=== PATIENT | male | born 1945 | race Caucasian/White ===

== ENCOUNTER 2024-10-11 16:55 | Inpatient (IN) | payer MEDICARE, BC, SELFPAY ==
[2024-10-11 17:59] VITALS: BP 111/65; PULSE 87; RESP 18; TEMP 37.7; O2SAT 95
[2024-10-11 18:42] VITALS: BMI 25.8
[2024-10-11 19:21] VITALS: BP 131/66; PULSE 94; RESP 22; TEMP 36.9; O2SAT 94
[2024-10-11 21:00] VITALS: BP 130/67; PULSE 80; RESP 18; O2SAT 96
[2024-10-11 21:16] VITALS: BP 130/67; PULSE 81; RESP 16; TEMP 36.7; O2SAT 5
--- NOTE | 2024-10-11 21:22 | EDNOTE_ITS ---
ED SOB =RME/HPI General Chief Complaint: Shortness of Breath/Dyspnea Stated Complaint: SPO2 84% @HOME, FEVER Time Seen by Provider: 10/11/24 17:49 Source: patient Arrival date/time: 10/11/24 16:55 Mode of arrival: ambulatory Limitations: no limitations RME / HPI RME / HPI Narrative: Dr. Arreola?s Main ED Evaluation: An 79-year-old male presented to the emergency department upon referral from his primary care provider (PCP) due to noted low oxygen saturation levels, which began earlier today. The patient reports a dry cough but denies any associated symptoms such as rhinorrhea, chest pain, or shortness of breath. He states that he does not use home oxygen and has no history of smoking. He experienced a fever at home but denies any recent exposure to sick contacts. Additionally, there have been no changes to his current medication regimen, and he remains compliant with his prescribed anticoagulant therapy, specifically Eliquis (related to stent placement). Related Data Home Medications ?Medication ?Instructions ?Recorded ?Confirmed lisinopril 40 mg tablet 40 mg PO BID #0 tabs 7 10/12/24 diltiazem HCl 30 mg tablet 30 mg PO TID 03/05/1910/12 (Cardizem) famotidine 40 mg tablet (Pepcid) 40 mg PO DAILY 10/12/24 levothyroxine 50 mcg tablet 50 mcg PO QDAY ##0 2 10/12/24 alendronate 70 mg tablet 70 mg PO QWEEK 08/08/2211/04 Held on 10/12/24. Instructions: Order Change aspirin 81 mg tablet,delayed 81 mg PO QDAY 08/08/22 release calcium 250 mg (phosphate)-vit D3 4 tab PO TIDWM 08/0810/12/24 12.5 mcg (500 unit) chewable tablet (Citracal-D3 Gummies) rosuvastatin 40 mg tablet 40 mg PO HS 08/08/22 5 ferrous sulfate 325 mg (65 mg 325 mg PO QDAY 08/10/22 10/12/24 iron) tablet (Iron (ferrous sulfate)) Held on 10/12/24. Instructions: Doctor's Order metoprolol succinate 50 mg 75 mg PO HS 08/10/22 tablet,extended release 24 hr rivaroxaban 20 mg tablet (Xarelto) mg 08/14/22 Held on 10/12/24. Instructions: Doctor's Order apixaban 5 mg tablet (Eliquis) 5 mg PO BID 10/12/24 hydrochlorothiazide 12.5 mg tablet 12.5 mg PO QDAY 11/0410/12/24 metformin 500 mg tablet 500 mg PO QDAY 10/12/2411/04 Previous Rx's ?Medication ?Instructions ?Recorded linagliptin 5 mg tablet (Tradjenta) 5 mg PO QDAY 30 da ys #30 tabs 08/12/22 Allergies Allergy/AdvReac Type Severity Reaction Status Date / Time ciprofloxacin Allergy Severe Hives Verified 10/11/24 16:58 oats Allergy Severe Vomiting Verified 10/11/24 16:58 Sulfa (Sulfonamide Allergy Severe Anaphylaxis Verified 10/11/24 16:58 Antibiotics) Review of Systems Review of Systems Systems Reviewed: All systems reviewed, normal except as documented ED Exam General Limitations: Present no limitations General appearance: Present alert and in no apparent distress Head Head exam: Present atraumatic Eye Eye exam: Present normal appearance, PERRL and EOMI ENT ENT exam: Present normal exam, normal oropharynx and mucous membranes moist Neck Neck exam: Present normal inspection, full ROM and trachea midline Chest Chest inspection: Present normal inspection and symmetric chest wall rise Respiratory Respiratory exam: Present normal lung sounds bilaterally Cardiovascular Cardiovascular exam: Present regular rate, normal rhythm and normal heart sounds Abdominal Exam Abdominal exam: Present soft and normal bowel sounds Extremities Exam Extremities exam: Present normal inspection and full ROM Back Exam Back exam: Present normal inspection and full ROM Neurological Exam Neurological exam: Present alert, oriented X3 and CN II-XII intact Psychiatric Psychiatric exam: Present normal affect and normal mood Skin Skin exam: Present warm, dry, intact and normal color Course Course Course Narrative: CXR is ordered for determining etiology of shortness of breath. Quality Measures none Orders Category Date Time Status Bedside COVID-19 Antigen Test NOW Care 10/11/24 19:31 Active COVID-19 Screening Questionnaire NOW Care 10/11/24 22:47 Completed Decision to Admit X1 Care 10/11/24 22:47 Completed CXRP [XR chest 1V portable] Stat Exams 10/11/24 21:25 Completed BNP [B-Type Natriuretic Peptide] Stat Lab 10/11/24 21:03 Completed CBC Stat Lab 10/11/24 21:03 Completed CMP [Comprehensive Metabolic Panel] Stat Lab 10/11/24 21:03 Completed Troponin I Stat Lab 10/11/24 21:03 Completed Apixaban [Eliquis] Med 10/11/24 21:24 Discontinued 5 mg PO X1 ONE Vital Signs Vital signs: Vital Signs Temperature 99.8 F 10/11/24 17:59 Pulse Rate 87 10/11/24 17:59 Respiratory Rate 18 10/11/24 17:59 Blood Pressure 111/65 10/11/24 17:59 Pulse Oximetry (%) 95 10/11/24 17:59 Oxygen Delivery Method Oxy Mask 10/11/24 17:59 Oxygen Flow Rate 10 10/11/24 17:59 Shortness of Breath / Dyspnea MDM Narrative MDM Narrative:: This is a very pleasant 79-year-old male with above history return to the emergency department for fever x 1 day and cough. In the emergency department the chest x-ray shows that he has bilateral pneumonia. The patient is slightly hypoxic however he is compliant with his Eliquis and is due for his dose tonight which was given. The patient is slightly hypoxic but improved to 90% on 4 L after DuoNeb. Patient otherwise is awake and talking in full sentences. He is treated with antibiotics and admitted to the hospitalist for continued monitoring. Scribe Attestation: IBlas, am scribing for and in the presence of Dr. Arreola. Provider Notation: Although this document has been carefully reviewed, there may still be some phonetic and other typographical errors. These errors are purely grammatical due to imperfections in the software program and should not be construed in any way to compromise the substance of the patient's medical care during this visit. Patient data External records reviewed:: [facility] previous records Clinical information provided by:: patient Social determinants that could affect healthcare access:: none Patient has the following chronic illnesses:: see PMH How is presenting disease/condition affected by chronic disease/condition?: uneffected by Evaluation data The following diagnostics were reviewed and interpreted by me:: lab results and radiology exam(s) Lab and/or radiology exams considered but not ordered:: none Interpretation Summary: I personally reviewed the radiology data and agree with the radiologist's interpretation. [facility] Report Signed Patient: SUZETTE ANNA. Record#: [id number] Birthdate: 1945 Age/Sex: 79 / M Location: [facility] Attending Dr: Ordering Physician: Luz Arreola MD Date of Service: 10/11/24 Procedure(s): XR chest 1V portable Accession Number(s): [id number] cc: Cristobal Chowdhury MD; Robbin Vazquez MD; Luz Arreola MD~ Examination: AP chest single view Technique: AP portable upright chest single view Exam date and time: October 11, 2024 2147 hrs. Comparison August 10, 2022 Indications: Coughing fever today. Findings: Diffuse bilateral pneumonia Moderate enlargement cardiac contour with vascular congestion Prominent osteopenia Impression: Diffuse bilateral pneumonia Dictated By: Robbin Vazquez MD Signed By: <Electronically signed by Robbin Vazquez MD in OV> 10/11/24 2223 Medications / Prescriptions Medications or Prescriptions considered but not ordered:: none Medication administrations:: Medication Administration History Acetaminophen (Acetaminophen 325 Mg Tablet) 650 mg PO Q6H PRN PRN Reason: PAIN SCALE 1-3 (mild Stop: 11/10/24 23:23 Acetaminophen (Acetaminophen 325 Mg Tablet) 650 mg PO Q6H PRN PRN Reason: Fever >100 Stop: 11/10/24 23:23 Albuterol/Ipratropium (Albuterol/Ipratropium (Duoneb) Rt Yesenia 3 Ml Nebu) 3 ml INH Q6HRRT TERESA Stop: 11/11/24 00:59 Last Admin: 10/12/24 06:13 Dose: 3 ml Documented By: [facility] Admin: 10/12/24 01:20 Dose: 3 ml Documented By: Apixaban (Apixaban 2.5 Mg Tablet) 5 mg PO BID TERESA Stop: 11/10/24 23:44 Last Admin: 10/12/24 01:13 Dose: Not Given Documented By: Non-Admin Reason: given at 2144 in ED Aspirin (Aspirin Ec 81 Mg Tabec) 81 mg PO QDAY [facility] Stop: 11/11/24 08:59 Atorvastatin Calcium (Atorvastatin Calcium 20 Mg Tablet) 40 mg PO HS [facility] Stop: 11/11/24 20:59 Dextrose (Dextrose 50%-Water Inj 50 Ml Syringe) 25 ml IV Q15MIN PRN PRN Reason: BG 50-70 responsive npo pt Stop: 11/10/24 23:35 Dextrose (Dextrose 50%-Water Inj 50 Ml Syringe) 50 ml IV Q15MIN PRN PRN Reason: BG <50 OR BG <70 & pt unresponsive Stop: 11/10/24 23:35 Diltiazem HCl (Diltiazem 30 Mg Tablet) 30 mg PO TID [facility] Stop: 11/10/24 23:44 Last Admin: 10/12/24 05:29 Dose: 30 mg Documented By: Admin: 10/12/24 01:27 Dose: 30 mg Documented By: CG Famotidine (Famotidine 20 Mg Tablet) 20 mg PO QDAY [facility] Stop: 11/11/24 08:59 Glucagon (Glucagon Inj 1 Mg Vial) 1 mg IM Q15MIN PRN PRN Reason: BG <70, and no IV access Ceftriaxone Sodium/Dextrose (Rocephin/D5w 1gm Iv Premix) 50 mls @ 100 mls/hr IV [facility] Stop: 10/19/24 20:59 Azithromycin 500 mg/ Sodium (Chloride) 250 mls @ 250 mls/hr IV [facility] Stop: 10/19/24 20:59 Insulin Human Lispro (Insulin Lispro (Admelog) 1 Unit/0.01 Ml Unit) 0 unit SC [facility]; Protocol Stop: 11/11/24 07:29 Levothyroxine Sodium (Levothyroxine Sodium 25 Mcg Tablet) 50 mcg PO ACBR [facility] Stop: 11/11/24 05:59 Last Admin: 10/12/24 05:29 Dose: 50 mcg Documented By: CG Metoprolol Succinate (Metoprolol Succinate Xl 25 Mg Tabcr) 50 mg PO QDAY [facility] Stop: 11/11/24 08:59 Ondansetron HCl (Ondansetron Inj 2 Mg/Ml Inj 2 Ml) 4 mg IV Q6H PRN; Protocol PRN Reason: NAUSEA OR VOMITING Stop: 11/10/24 23:23 Discontinued Medications Apixaban (Apixaban 2.5 Mg Tablet) 5 mg PO X1 ONE Stop: 10/11/24 21:25 Last Admin: 10/11/24 21:44 Dose: 5 mg Documented By: DMITRY Furosemide (Furosemide Inj 10 Mg/Ml Vial 2 Ml) 20 mg IVP X1 ONE Stop: 10/11/24 23:25 Azithromycin 500 mg/ Sodium (Chloride) 250 mls @ 250 mls/hr IV X1 ONE Stop: 10/12/24 01:29 Last Infusion: 10/12/24 02:55 Dose: Infused Documented By: Admin: 10/12/24 01:55 Dose: 250 mls/hr Documented By: CG Ceftriaxone Sodium/Dextrose (Rocephin/D5w 1gm Iv Premix) 50 mls @ 100 mls/hr IV X1 ONE Stop: 10/12/24 00:59 Last Infusion: 10/12/24 01:56 Dose: Infused Documented By: Admin: 10/12/24 01:26 Dose: 100 mls/hr Documented By: CG Pantoprazole Sodium (Pantoprazole Inj 40 Mg Vial) 40 mg IVP QDAY [facility] Stop: 11/11/24 08:59 Sodium Chloride (Sodium Chloride Rt 10% 15 Ml Nebu) 5 ml INH X1 ONE Stop: 10/11/24 23:25 as above, if any Consultations Consultation(s) initiated? (list below): Yes Consultation #1 (Physician, Specialty, Details): Discussed case with [the resident physician, Dr. Tyler] from Hospitalist service regarding admission. Discussed patients ED course, exam findings, labs, and radiology results. The Hospitalist [agrees] to accept the patient for admission. Time: 22:46 Diagnosis Shortness of Breath Differential Diagnosis: acute exacerbation of chronic obstructive airways disease, congestive heart failure and asthma with exacerbation Most likely diagnosis given after review of the tests above:: see clinical impression Admission Indicated Admission indicated?: indicated Admission Request Was there a request for admission?: Yes Admission Attestation Admission request attestation: Discussed case with [] from Hospitalist service regarding admission. Discussed patients ED course, exam findings, labs, and radiology results. The Hospitalist [agrees,declines] to accept the patient for admission. Disposition Plan Disposition Plan: Admit Critical Care Time Critical Care Time Critical Care Time: Yes Total Critical Care Time (min.): 35 Attestation: The high probability of sudden, clinically significant deterioration in the patient?s condition required the highest level of my preparedness to intervene urgently. The services I provided to this patient were to treat and/or prevent clinically significant deterioration. Services included the following: chart data review, reviewing nursing notes and/or old charts, documentation time, beauty consultant collaboration regarding findings and treatment options, medication orders and management, direct patient care, vital sign assessments and ordering, interpreting and reviewing diagnostic studies and lab tests. Aggregate critical care time includes only time during which I was engaged in work directly related to the patient?s care, as described above, whether at bedside or elsewhere in the Emergency Department. It did not include time spent performing other reported procedures or the services of residents, students, nurses or physician assistants. Discharge Plan Plan Patient Disposition: Admit Acute Care w/in Hospital Patient condition on transfer: Stable Problem List Clinical Impression: Bilateral pneumonia, Hypoxia
--- NOTE | 2024-10-11 21:25 | XR_ITS ---
Examination: AP chest single view Technique: AP portable upright chest single view Exam date and time: October 11, 2024 2147 hrs. Comparison August 10, 2022 Indications: Coughing fever today. Findings: Diffuse bilateral pneumonia Moderate enlargement cardiac contour with vascular congestion Prominent osteopenia Impression: Diffuse bilateral pneumonia
[2024-10-11 21:30] LABS: Basophils % (Auto) 0 % (0-2.5); Eosinophils % (Auto) 0 % (0-10); Hematocrit 35.8 % (41.0-53.0); Hemoglobin 11.8 g/dL (13.5-16.0); Immature Granulocytes % (Auto) 1 % (0-0); Immature Granulocytes Auto 0.07 Thou/mm3 (0.00-0.00); Lymphocytes % (Auto) 7 % (10-50); Mean Corpuscular Hemoglobin 29.9 pg (25.0-35.0); Mean Corpuscular Volume 91 fL (80-100); Monocytes # (Auto) 1.3 Thou/mm3 (0.0-0.8); Monocytes % (Auto) 9 % (0-12); Neutrophils # (Auto) 11.6 Thou/mm3 (1.8-7.7); Neutrophils % (Auto) 83 % (37-80); Nucleated Red Blood Cell % 0 /100 WBC (0); Platelet Count 147 Thou/mm3 (140-440); RDW Standard Deviation 44.8 fL (35.1-43.9); Red Blood Count 3.95 Miln/mm3 (4.50-5.90)
[2024-10-11] MEDS: APIXABAN 2.5 MG TABLET 5 MG PO (21:44)
[2024-10-11 22:00] VITALS: BP 140/78; PULSE 80; RESP 24; O2SAT 97
[2024-10-11 22:12] LABS: Alanine Aminotransferase 14 U/L (10-49); Albumin, Serum 4.1 gm/dL (3.4-4.8); Albumin/Globulin Ratio 1.6 (1.2-2.2); Alkaline Phosphatase 46 U/L (46-116); Anion Gap 10 (7-16); Aspartate Amino Transferase 25 U/L (0-34); BUN/Creatinine Ratio 24 Ratio (12-20); Blood Urea Nitrogen 33 mg/dL (9-23); Calcium 9.9 mg/dL (8.3-10.6); Calcium (Corrected) 9.9 mg/dL (8.5-10.1); Carbon Dioxide 25.1 mMol/L (20.0-31.0); Chloride 111 mMol/L (98-107); Creatinine (Component) 1.4 mg/dL (0.6-1.3); Estimated Creatinine Clearance 42.7 mL/min (>60); Globulin 2.5 gm/dL (2.3-3.5); Glucose 167 mg/dL (74-106); Osmolality,Calculated 301 (275-295); Potassium 4.9 mMol/L (3.4-5.1); Sodium 146 mMol/L (136-145); Total Protein 6.6 gm/dL (5.7-8.2); Troponin I < 0.020 ng/mL (0.0-0.045); eGFR 50 See Note
[2024-10-11 22:52] LABS: B-Type Natriuretic Peptide 206 pg/mL (0-100)
--- NOTE | 2024-10-11 23:24 | ECHO_ITS ---
Transthoracic Echo Report Ht (in): 70 Wt (lb): 180 Exam Location: Echo Lab Status: Emergency Vault Mechanic: Ester Adams Indications: Procedure Performed: BP: / HR: Technical Quality: Technically difficult study MEASUREMENTS (Male / Female) Normal Values DOPPLER AV Peak Velocity 198.0 cm/s AV Peak Gradient 15.7 mmHg AV Mean Gradient 7.0 mmHg AV Velocity Time Integral 30.0 cm LVOT Peak Velocity 129.0 cm/s LVOT Peak Gradient 6.7 mmHg LVOT Velocity Time Integral 20.8 cm MV Area PHT 3.5 cm? Mitral E Point Velocity 66.5 cm/s Mitral A Point Velocity 87.8 cm/s Mitral E to A Ratio 0.8 LV E' Lateral Velocity 6.3 cm/s Mitral E to LV E' Lateral Ratio 10.5 LV E' Septal Velocity 7.1 cm/s Mitral E to LV E' Septal Ratio 9.4 TR Peak Velocity 284.0 cm/s TR Peak Gradient 32.3 mmHg PV Peak Velocity 109.0 cm/s PV Peak Gradient 4.8 mmHg FINDINGS Left Ventricle Normal left ventricular size. The ejection fraction is visually estimated at 40 %. Global left ventricular systolic function is mildly decreased. Hypokinetic mid- anterior septal wall motion. Right Ventricle The right ventricle is normal in size and systolic function. Left Atrium Left atrium not well visualized. Right Atrium Right atrium is not well visualized. Atrial Septum The interatrial septum appears normal with no evidence of a shunt. Aorta The aorta is normal by two-dimensional, color flow and Doppler interrogation. Mitral Valve The mitral valve is normal by two-dimensional, color flow and Doppler interrogation. There is no significant mitral valve regurgitation, stenosis or prolapse. Aortic Valve The aortic valve is trileaflet and normal by two-dimensional, color flow and Doppler interrogation. There is no significant aortic valve regurgitation. Tricuspid Valve The tricuspid valve is normal by two-dimensional, color flow and Doppler interrogation. There is mild tricuspid valve regurgitation. Pulmonic Valve The pulmonic valve is not well visualized. There is no significant pulmonic valve regurgitation. Vessels Inferior vena cava not well visualized. Pericardium The pericardium is normal by two-dimensional imaging. There is no significant pericardial effusion. CONCLUSIONS Indication: SOB All the cardiac structures suboptimally visalized. Normal LV size. Global LV systolic function is mildly decreased. LVEF 40% Hypokinetic mid-anterior septal wall motion. The right ventricle is normal in size and systolic function. Mild TR. Kendal Meza (Electronically Signed) Final Date: 15 October 2024 00:55
--- NOTE | 2024-10-11 23:36 | PD.RESHP ---
Documentation for date of: 10/11/24 [facility] History of Present Illness History of present illness: This is a 79-year-old male PMHx of AAA 10 years ago s/p stenting, CAD with stents, HTN, HLD, hypothyroidism, T2DM and GERD presenting to the ED with shortness of breath and cough. Reports 3 days productive cough with grayish sputum associated with shortness of breath and 1 episode low-grade fever of 100.2 overnight. Fever resolved after IBUPROFEN x 1. This morning, he had worsening cough after smoking marijuana. He was seen by PCP this morning who recommended admission to the hospital. Denies headaches, chills, chest pain, palpitations, hemoptysis, abdominal pain, N/V/D/C, urinary urgency, frequency, dysuria, sick exposure, or recent travel history. ED COURSE: Normal appearing elderly male, on 5 L NC, NAD. Bibasilar crackles on lung exam. Bilateral 1+ lower extremity edema. Afebrile, BP 145/78, HR 87, RR 22, satting 95% on 10L NC. WBC 14.0, Hgb 11.8 around baseline. Sodium 146, CR 1.4, GFR 50 (baseline > 60), GLUCOSE 167. BNP 206, troponin negative. CXR bilateral pneumonia. PMHx: Afib, AAA, CAD, HTN, HLD, hypothyroidism, T2DM, GERD PSHx: Aortic aneurysm repair >10 years ago, prostatectomy 2 years ago MEDS: ASPIRIN, D3, DILTIAZEM, ELIQUIS, FLECAINIDE 100 PRN, HYDROCHLOROTHIAZIDE, LEVOTHYROXINE, LISINOPRIL, METOPROLOL, FAMOTIDINE, ROSUVASTATIN, TRADJENTA ALLERGIES: CIPROFLOXACIN (hives), SULFA DRUGS (anaphylaxis), oats (vomiting) SH: Distant history of 19-oiva-fqcn tobacco smoking, current marijuana user, no alcohol use. Exam Vital Signs Temp Pulse Resp BP Pulse Ox O2 Del Method O2 Flow Rate 98.0 F 80 24 H 140/78 H 97 Oxy Mask 5 10/11/24 21:16 10/11/24 22:00 10/11/24 22:00 10/11/24 22:00 10/11/24 22:00 10/11/24 22:00 10/11/24 22:00 Narrative Exam GENERAL Normal-appearing elderly male, no apparent distress, on 2 L NC HEENT NCAT.?YG. Oral mucosa is moist. Patent Nares NECK Supple, nontender, no thyromegaly, no meningismus, no JVD, no step offs CHEST RRR, no m/g/r Bibasilar crackles, no wheezing, no rhonchi. Symmetrical chest rise Atraumatic, nontender, no crepitus, symmetrical expansion. ABDOMEN Soft, flat, nontender. No guarding/rebound tenderness/masses. Bowel sounds presents EXTREMITIES Nontender, no cyanosis, no edema 1+ bilateral lower extremity pitting edema SKIN Warm and dry, no jaundice/rashes. Diffuse senile purpura NEUROMUSCULAR No lumbar or midline, no CVA, no paraspinal muscle spasm or tenderness. Moves all 4 extremities well, with full ROM and good CSM. ROBERTS x4, CN II-XII grossly intact. No focal neurologic deficits. PSYCHIATRY Normal mood and affect, cooperative, no SI or HI or hallucinations. Results: Labs 10/11/24 21:03 10/11/24 21:03 Labs: Short CBC 10/11/24 Range/Units 21:03 WBC 14.0 H (3.8-10.6) Thou/mm3 Hgb 11.8 L (13.5-16.0) g/dL Hct 35.8 L (41.0-53.0) % Plt Count 147 (140-440) Thou/mm3 BMP 10/11/24 21:03 Sodium 146 H Potassium 4.9 Chloride 111 H Carbon Dioxide 25.1 BUN 33 H Creatinine 1.4 H Glucose 167 H Calcium 9.9 Cardiac Enzymes 10/11/24 Range/Units 21:03 Troponin I < 0.020 (0.0-0.045) ng/mL Liver Function 10/11/24 Range/Units 21:03 Total Bilirubin 1.0 (0.3-1.2) mg/dL AST 25 (0-34) U/L ALT 14 (10-49) U/L Alkaline Phosphatase 46 (46-116) U/L Albumin 4.1 (3.4-4.8) gm/dL Quality Measures Quality Measures none Advance care planning discussed with:: patient Medications Home Medications and Allergies Home Medications ?Medication ?Instructions ?Recorded ?Confirmed ?Type lisinopril 40 mg tablet 40 mg PO BID #0 tabs 12/19/16 08/10/22 History diltiazem HCl 30 mg tablet 30 mg PO TID 03/05/19 08/10/22 History (Cardizem) famotidine 40 mg tablet (Pepcid) 40 mg PO DAILY 06/30/22 08/10/22 History levothyroxine 50 mcg tablet 50 mcg PO QDAY ##0 06/30/22 08/10/22 History alendronate 70 mg tablet 70 mg PO QWEEK 08/08/22 08/10/22 History aspirin 81 mg tablet,delayed 81 mg PO QDAY 08/08/22 08/10/22 History release calcium 250 mg (phosphate)-vit D3 4 tab PO TIDWM 08/08/22 08/10/22 History 12.5 mcg (500 unit) chewable tablet (Citracal-D3 Gummies) rosuvastatin 40 mg tablet 40 mg PO HS 08/08/22 08/10/22 History ferrous sulfate 325 mg (65 mg 325 mg PO QDAY 08/10/22 08/10/22 History iron) tablet (Iron (ferrous sulfate)) metoprolol succinate 50 mg 75 mg PO HS 08/10/22 08/10/22 History tablet,extended release 24 hr rivaroxaban 20 mg tablet (Xarelto) mg 08/14/22 History Allergies Allergy/AdvReac Type Severity Reaction Status Date / Time ciprofloxacin Allergy Severe Hives Verified 10/11/24 16:58 oats Allergy Severe Vomiting Verified 10/11/24 16:58 Sulfa (Sulfonamide Allergy Severe Anaphylaxis Verified 10/11/24 16:58 Antibiotics) Visit Medications Acetaminophen (Acetaminophen 325 Mg Tablet) 650 mg PO Q6H PRN PRN Reason: PAIN SCALE 1-3 (mild Stop: 11/10/24 23:23 Acetaminophen (Acetaminophen 325 Mg Tablet) 650 mg PO Q6H PRN PRN Reason: Fever >100 Stop: 11/10/24 23:23 Ceftriaxone Sodium/Dextrose (Rocephin/D5w 1gm Iv Premix) 50 mls @ 100 mls/hr IV QDAY TERESA Stop: 10/19/24 08:59 Azithromycin 500 mg/ Sodium (Chloride) 250 mls @ 250 mls/hr IV QDAY TERESA Stop: 10/18/24 23:26 Ondansetron HCl (Ondansetron Inj 2 Mg/Ml Inj 2 Ml) 4 mg IV Q6H PRN; Protocol PRN Reason: NAUSEA OR VOMITING Stop: 11/10/24 23:23 Pantoprazole Sodium (Pantoprazole Inj 40 Mg Vial) 40 mg IVP QDAY TERESA Stop: 11/11/24 08:59 Discontinued Medications Apixaban (Apixaban 2.5 Mg Tablet) 5 mg PO X1 ONE Stop: 10/11/24 21:25 Last Admin: 10/11/24 21:44 Dose: 5 mg Furosemide (Furosemide Inj 10 Mg/Ml Vial 2 Ml) 20 mg IVP X1 ONE Stop: 10/11/24 23:25 Sodium Chloride (Sodium Chloride Rt 10% 15 Ml Nebu) 5 ml INH X1 ONE Stop: 10/11/24 23:25 Assessment & Plan Plan In summary: 79-year-old male PMHx of AAA 10 years ago s/p stenting, CAD with stents, A-fib, HTN, HLD, hypothyroidism, T2DM and GERD, presenting with fever, cough, SOB. Admitted for sepsis 2/2 pneumonia. Acute hypoxemic respiratory failure Sepsis Community-acquired pneumonia ? CHF exacerbation Presenting with scott sputum cough, fever, and SOB x 3 days. Met sepsis with 2/3 SIRS criteria: tachypnea and leukocytosis, pneumonia likely source, endorgan damage (HOWARD). CXR showed bibasilar pneumonia. Basilar lung crackles and 1+ bilateral lower extremity edema on exam. BNP 206. Satting 95% on 5 L NC. Will hold off on fluid till after echo given fluid overload. PSI index 81 indicates class III risk. CURB-65 of 2 indicates Moderate risk. ? Med/tele ? Continue CEFTRIAXONE daily (10/11 to present) ? Continue AZITHROMYCIN daily (10/11 to present) ? Continue DuoNebs q.6h. PRN ? Holding home METOPROLOL in likely settings of acute CHF exacerbation ? Chest physio therapy ? Pending echocardiogram ? Pending cultures: Blood and sputum Prerenal HOWARD Likely in settings of dehydration. CR 1.4 with baseline around 1.2. Anticipate improvement with resuscitation. ? Renally dose meds, avoid overdiuresis and NEPHROTOXINS ? Daily CMP ? Consider starting fluids when appropriate A-fib, rate controlled Hx of AAA s/p stent Hx of CAD s/p stent Patient follows up with cardiology for annual screening in [place]. Last visit last week. Denies chest pain or palpitations. Troponin normal. [id number] 5 point outweighs risk of bleed with HAS-BLED of 3. ? Continued home ASPIRIN 81 mg daily ? Continued home ELIQUIS 5 mg BID ? Continue home DILTIAZEM 30 mg TID ? Pending EKG Patient takes home FLECAINIDE 100 mg as needed. Consider restarting medication as indicated. HTN, HLD, hypothyroidism Home meds HCTZ 12.5 daily, LISINOPRIL 40 BID, METOPROLOL 50 mg daily, ROSUVASTATIN 40 mg. BP 145/78. ? Continue ATORVASTATIN 40 mg HS ? Holding HCTZ, LISINOPRIL in settings of HOWARD ? Holding METOPROLOL as above ? Consider repeat lipid panel, thyroid function T2DM No recent A1c on file. Admission GLUCOSE 167 ? Accu-Cheks ? INSULIN sliding scale ? Pending A1c Mild hypernatremia Sodium 146. Likely dehydration. ? Encourage oral fluids ? Daily CMP GERD ? Continue home FAMOTIDINE 40 mg daily Health maintenance Diet: CHO consistent, avoid oats GI prophylaxis: LORATADINE DVT prophylaxis: ELIQUIS Antibiotics: CEFTRIAXONE, AZITHROMYCIN CODE STATUS: Full code Disposition: Treating pneumonia. Patient case was discussed with attending, Ilana Vasquez MD. Tatiana Yao DO PGYI Attending Provider Attestation/Addendum I attest that I was physically present for the evaluation, physical examination, lab and imaging review of the patient with the residents. I discussed the case with the residents and agree with the findings and plans of care as documented above. Patient is an 79 years old male with past medical history of abdominal aortic aneurysm status post stenting, CAD with stent, hypertension, hyperlipidemia, hypothyroidism and GERD who presented with shortness of breath and cough. Patient has been having cough for last 3 days and also noticed having fever at home at 100.2 ?F. Patient received Tylenol and ibuprofen which helped with the fever. Patient continued to have shortness of breath and cough for which he discussed with his PCP, who recommended for ED visit. In the ED, patient appears comfortable saturating well on 5 L nasal cannula. Has bilateral crackles on examination and trace pedal edema bilaterally. Vital signs are within normal limits except for respiratory rate of 22. Lab results showed WBC of 14.0, creatinine 1.4, BNP 206. Chest x-ray was done, which shows bilateral pneumonia and concern for vascular congestion. We will admit patient for management of acute hypoxic respiratory failure and sepsis secondary to community-acquired pneumonia. Started on IV Rocephin and azithromycin, DuoNebs. With vascular congestion on chest x-ray, elevated BNP and trace pedal edema, we will avoid fluid resuscitation, and obtain echocardiogram. We will also obtain blood and sputum cultures. We will also continue medications for his A-fib including diltiazem and Eliquis. We will hold off on his antihypertensives and slowly resume them if blood pressure continues to go up. Alexis Vasquez MD
[2024-10-11 23:42] VITALS: BP 145/78; PULSE 78; RESP 22; TEMP 36.6; O2SAT 96
[2024-10-12] VITALS (18 sets, daily range): BP systolic 108–148; BP diastolic 59–74; PULSE 71–160; RESP 16–24; TEMP 36.6–37.7; O2SAT 90–98; BMI 25.1
--- NOTE | 2024-10-12 00:44 | EKG_ITS ---
[facility] Test Date: 2024-10-12 Pat Name: SUZETTE ANNA Department: Room: [address] Gender: Male Policy And Planning Manager: ZAFAR : 1945 Requested By: Tatiana Yao Order Number: [id number] Reading MD: Tatiana Yao Measurements Intervals [place] Rate: 81 P: 0 OR: 189 QRS: -40 QRSD: 161 T: 138 QT: 414 QTc: 481 Interpretive Statements SINUS RHYTHM WITH OCCASIONAL SUPRAVENTRICULAR PREMATURE COMPLEXES MARKED LEFT AXIS DEVIATION [QRS AXIS < -30] LEFT BUNDLE BRANCH BLOCK [120+ ms QRS DURATION, 80+ ms Q/S IN V1/V2, 85+ ms R IN I/aVL/V5/V6] Compared to ECG 08/11/2022 09:08:15 Left bundle-branch block now present Intraventricular conduction delay no longer present Myocardial infarct finding no longer present /store/S0/[id number]/ecg/[id number].pdf
--- NOTE | 2024-10-12 01:00 | PC.NURSE ---
Pt came in from ER, alert and oriented on 5LPM NC sating at 91%. Pt noted SOB on exertion upon moving himself from gurney to bed.
--- NOTE | 2024-10-12 01:15 | PC.NURSE ---
RT made aware that EKG ordered for the pt.
[2024-10-12] MEDS: ALBUTEROL/IPRATROPIUM (Duoneb) RT SOL 3 ML NEBU INH ×4 (01:20→18:05)
[2024-10-12] MEDS: cefTRIAXone/D5w 1gm IV premix 50 ML IV ×2 (01:26→20:07)
[2024-10-12] MEDS: DILTIAZEM 30 MG TABLET PO ×4 (01:27→21:00)
--- NOTE | 2024-10-12 01:54 | PC.RT ---
sputum collected and sent to lab.
[2024-10-12] MEDS: AZITHROMYCIN INJ 500 MG in SODIUM CHLORIDE 0.9% 250 ML 250 ML 250 MG IV ×2 (01:55→20:08)
[2024-10-12] MEDS: LEVOTHYROXINE SODIUM 25 MCG TABLET 50 MCG PO (05:29)
[2024-10-12 06:07] LABS: Basophils % (Auto) 0 % (0-2.5); Eosinophils % (Auto) 0 % (0-10); Hematocrit 35.5 % (41.0-53.0); Hemoglobin 11.6 g/dL (13.5-16.0); Immature Granulocytes % (Auto) 1 % (0-0); Immature Granulocytes Auto 0.06 Thou/mm3 (0.00-0.00); Lymphocytes # (Auto) 0.9 Thou/mm3 (1.0-4.8); Lymphocytes % (Auto) 7 % (10-50); Mean Corpuscular HGB Conc 32.7 g/dl (31.0-37.0); Mean Corpuscular Hemoglobin 30.5 pg (25.0-35.0); Mean Corpuscular Volume 93 fL (80-100); Monocytes # (Auto) 0.9 Thou/mm3 (0.0-0.8); Monocytes % (Auto) 7 % (0-12); Neutrophils # (Auto) 10.6 Thou/mm3 (1.8-7.7); Neutrophils % (Auto) 84 % (37-80); Nucleated Red Blood Cell % 0 /100 WBC (0); Platelet Count 132 Thou/mm3 (140-440); RDW Standard Deviation 46.5 fL (35.1-43.9); White Blood Count 12.5 Thou/mm3 (3.8-10.6)
[2024-10-12 06:36] LABS: Glucose Estimated Average 120 mg/dL (80-131); Hemoglobin A1C 5.8 % Hgb (4.8-6.0)
[2024-10-12 06:41] LABS: Alanine Aminotransferase 12 U/L (10-49); Albumin, Serum 3.8 gm/dL (3.4-4.8); Albumin/Globulin Ratio 1.4 (1.2-2.2); Alkaline Phosphatase 46 U/L (46-116); Anion Gap 13 (7-16); Aspartate Amino Transferase 23 U/L (0-34); BUN/Creatinine Ratio 25 Ratio (12-20); Blood Urea Nitrogen 33 mg/dL (9-23); Calcium 9.1 mg/dL (8.3-10.6); Calcium (Corrected) 9.3 mg/dL (8.5-10.1); Carbon Dioxide 23.1 mMol/L (20.0-31.0); Chloride 108 mMol/L (98-107); Creatinine (Component) 1.3 mg/dL (0.6-1.3); Globulin 2.7 gm/dL (2.3-3.5); Glucose 142 mg/dL (74-106); Magnesium 1.9 mg/dL (1.6-2.6); Osmolality,Calculated 296 (275-295); Phosphorous 2.5 mg/dL (2.4-5.1); Potassium 4.2 mMol/L (3.4-5.1); Sodium 144 mMol/L (136-145); Total Protein 6.5 gm/dL (5.7-8.2); eGFR 55 See Note
[2024-10-12] MEDS: APIXABAN 2.5 MG TABLET 5 MG PO ×2 (08:29→20:06)
[2024-10-12] MEDS: FAMOTIDINE 20 MG TABLET PO (08:29)
[2024-10-12] MEDS: ASPIRIN EC 81 MG TABEC PO (08:29)
[2024-10-12] MEDS: METOPROLOL SUCCINATE XL 25 MG TABCR 50 MG PO (08:29)
--- NOTE | 2024-10-12 13:16 | PC.SS ---
Rasheed Mayo is a 79-year-old male admitted to [facility] for SOB. SS conducted bedside contact with the patient to complete initial assessment and to discuss discharge planning.? Patient confirmed demographic information. Patient identifies his Eileen Mayo [phone] as his surrogate decision maker. Patient resides at home with his . Pt states he is able to complete all ADL?s independently, has a cane for ambulation. Pts PCP is Dr. Cristobal Chowdhury (last visit 3 months ago) and pharmacy of choice is [facility]. DC option discussed and pt wishes to return home. Pts family will provide transportation upon DC. No further intervention required at this time, social sciences chair would be available to address any further concerns. DC Plan: Home Contact: Eileen Mayo [phone] PCP: Luciana
--- NOTE | 2024-10-12 15:52 | ESPR_ITS ---
Documentation for date of: 10/12/24 Subjective Subjective Interval history: Patient seen and examined at bedside. Sitting comfortably eating lunch. Alert and oriented x 3. Denies any shortness of breath, cough. Vitals significant for oxygenation at 90% via 6 L nasal cannula. States that he does not use any oxygen at baseline. WBC have downtrended to 12.5, BUN 33, creatinine 1.3. Blood cultures sputum cultures are still pending. Continue ceftriaxone 1 g daily and azithromycin for treatment of sepsis secondary to pneumonia. Monitoring Urine output and avoiding nephrotoxic agents in setting of HOWARD. Exam Vital Signs Temp Pulse Resp BP Pulse Ox O2 Del Method O2 Flow Rate 97.9 F 71 22 H 139/72 H 96 Nasal Cannula 5 10/12/24 12:00 10/12/24 15:01 10/12/24 13:07 10/12/24 15:01 10/12/24 13:07 10/12/24 12:00 10/12/24 13:07 Narrative Exam General: Alert and oriented x3. No acute distress, cooperative Eyes: Pupils are equal and reactive to light bilaterally HENT: Atraumatic, normocephalic. No JVD noted. Mucosa moist. Cardiovascular: Normal S1 and S2. Regular rate and rhythm. Respiratory: Mild end expiratory wheezing b/L, on 6L NC Abdomen: Soft, nontender, not distended, normal bowel sounds. Skin: Warm to touch, dry, no rashes noted, small bruises noted throughout extremities Musculoskeletal: No gross injuries. Able to move all 4 extremities. Neuro: Grossly intact Psych: Normal affect and mood Objective Labs 10/12/24 05:00 10/12/24 05:00 Labs: Laboratory Results - last 24 hr 10/11/24 10/12/24 21:03 05:00 WBC 14.0 H 12.5 H RBC 3.95 L 3.80 L Hgb 11.8 L 11.6 L Hct 35.8 L 35.5 L MCV 91 93 MCH 29.9 30.5 MCHC 33.0 32.7 RDW Std Deviation 44.8 H 46.5 H Plt Count 147 132 L Neut % (Auto) 83 H 84 H Lymph % (Auto) 7 L 7 L Carlton % (Auto) 9 7 Eos % (Auto) 0 0 Baso % (Auto) 0 0 Neut # (Auto) 11.6 H 10.6 H Lymph # (Auto) 1.0 0.9 L Carlton # (Auto) 1.3 H 0.9 H Eos # (Auto) 0.0 0.0 Baso # (Auto) 0.0 0.0 Immature Gran # (Auto) 0.07 H 0.06 H Absolute Nucleated RBC 0.00 0.00 Immature Gran % 1 H 1 H Nucleated RBC % 0 0 Sodium 146 H 144 Potassium 4.9 4.2 D Chloride 111 H 108 H Carbon Dioxide 25.1 23.1 Anion Gap 10 13 BUN 33 H 33 H Creatinine 1.4 H 1.3 Estim Creat Clear Calc 42.7 L 46.0 L eGFR 50 L 55 L BUN/Creatinine Ratio 24 H 25 H Glucose [address] Glu mg/dL 120 Hemoglobin A1c 5.8 Calculated Osmolality 301 H 296 H Calcium 9.9 9.1 Corrected Calcium 9.9 9.3 Phosphorus 2.5 Magnesium 1.9 Total Bilirubin 1.0 1.0 AST 25 23 ALT 14 12 Alkaline Phosphatase 46 46 Troponin I < 0.020 B-Natriuretic Peptide 206 H Total Protein 6.6 6.5 Albumin 4.1 3.8 Globulin 2.5 2.7 Albumin/Globulin Ratio 1.6 1.4 Quality Measures Quality Measures none Advance care planning discussed with:: patient Assessment & Plan Assessment Current Active Medications: Generic Name Dose Route Start Last Admin Trade Name Freq PRN Reason Stop Dose Admin Acetaminophen 650 mg 10/11/24 23:24 Acetaminophen 325 Mg Tablet PO 11/10/24 23:23 Q6H PRN PAIN SCALE 1-3 (mild Acetaminophen 650 mg 10/11/24 23:24 Acetaminophen 325 Mg Tablet PO 11/10/24 23:23 Q6H PRN Fever >100 Albuterol/Ipratropium 3 ml 10/12/24 01:00 10/12/24 13:06 Albuterol/Ipratropium (Duoneb) Rt Yesenia 3 Ml Nebu INH 11/11/24 00:59 3 ml Q6HRRT TERESA Administration Apixaban 5 mg 10/11/24 23:45 10/12/24 08:29 Apixaban 2.5 Mg Tablet PO 11/10/24 23:44 5 mg BID TERESA Administration Aspirin 81 mg 10/12/24 09:00 10/12/24 08:29 Aspirin Ec 81 Mg Tabec PO 11/11/24 08:59 81 mg QDAY TERESA Administration Atorvastatin Calcium 40 mg 10/12/24 21:00 Atorvastatin Calcium 20 Mg Tablet PO 11/11/24 20:59 HS TERESA Dextrose 25 ml 10/11/24 23:36 Dextrose 50%-Water Inj 50 Ml Syringe IV 11/10/24 23:35 Q15MIN PRN BG 50-70 responsive npo pt Dextrose 50 ml 10/11/24 23:36 Dextrose 50%-Water Inj 50 Ml Syringe IV 11/10/24 23:35 Q15MIN PRN BG <50 OR BG <70 & pt unresponsive Diltiazem HCl 30 mg 10/11/24 23:45 10/12/24 15:01 Diltiazem 30 Mg Tablet PO 11/10/24 23:44 30 mg TID TERESA Administration Famotidine 20 mg 10/12/24 09:00 10/12/24 08:29 Famotidine 20 Mg Tablet PO 11/11/24 08:59 20 mg QDAY TERESA Administration Glucagon 1 mg 10/11/24 23:36 Glucagon Inj 1 Mg Vial IM Q15MIN PRN BG <70, and no IV access Ceftriaxone Sodium/Dextrose 50 mls @ 100 mls/hr 10/12/24 21:00 Rocephin/D5w 1gm Iv Premix IV 10/19/24 20:59 HS [facility] Azithromycin 500 mg/ Sodium 250 mls @ 250 mls/hr 10/12/24 21:00 Chloride IV 10/19/24 20:59 HS [facility] Insulin Human Lispro 0 unit 10/12/24 07:30 10/12/24 12:01 Insulin Lispro (Admelog) 1 Unit/0.01 Ml Unit SC 11/11/24 07:29 Not Given ACHS [facility] Protocol Levothyroxine Sodium 50 mcg 10/12/24 06:00 10/12/24 05:29 Levothyroxine Sodium 25 Mcg Tablet PO 11/11/24 05:59 50 mcg ACBR TERESA Administration Metoprolol Succinate 50 mg 10/12/24 09:00 10/12/24 08:29 Metoprolol Succinate Xl 25 Mg Tabcr PO 11/11/24 08:59 50 mg QDAY TERESA Administration Ondansetron HCl 4 mg 10/11/24 23:24 Ondansetron Inj 2 Mg/Ml Inj 2 Ml IV 11/10/24 23:23 Q6H PRN NAUSEA OR VOMITING Protocol Plan Rasheed Mayo is 79-year-old male PMHx of AAA 10 years ago s/p stenting, CAD with stents, A-fib, HTN, HLD, hypothyroidism, T2DM and GERD, presenting with fever, cough, SOB. Admitted for sepsis 2/2 pneumonia. #AHRF 2/2 CAP #Sepsis 2/2 PNA #? CHF exacerbation Presenting with scott sputum cough, fever, and SOB x 3 days. Met sepsis with 2/3 SIRS criteria: tachypnea and leukocytosis, pneumonia likely source, endorgan damage (HOWARD). CXR showed bibasilar pneumonia. Basilar lung crackles and 1+ bilateral lower extremity edema on exam. BNP 206. Satting 95% on 5 L NC. Will hold off on fluid till after echo given fluid overload. PSI index 81 indicates class III risk. CURB-65 of 2 indicates Moderate risk. ? Continue CEFTRIAXONE 1 g daily (10/11 to present) ? Continue AZITHROMYCIN 500 daily (10/11 to present) ? Continue DuoNebs q.6h. PRN ? Holding home METOPROLOL in likely settings of acute CHF exacerbation ? Chest physio therapy ? Pending echocardiogram ? Pending cultures: Blood and sputum #Prerenal HOWARD Likely in settings of dehydration, sepsis, CHF exacerbation. CR 1.4 with baseline around 1.2. Anticipate improvement with resuscitation. ? Renally dose meds, avoid overdiuresis and NEPHROTOXINS ? Daily CMP -monitor IOs -Avoid fluids for now #Hx A-fib, rate controlled #Hx of AAA s/p stent #Hx of CAD s/p stent Patient follows up with cardiology for annual screening in [place]. Last visit last week. Denies chest pain or palpitations. Troponin normal. [id number] 5 point outweighs risk of bleed with HAS-BLED of 3. ? Continued home ASPIRIN 81 mg daily ? Continued home ELIQUIS 5 mg BID ? Continue home DILTIAZEM 30 mg TID #Hx HTN #Hx HLD, #Hx hypothyroidism Home meds HCTZ 12.5 daily, LISINOPRIL 40 BID, METOPROLOL 50 mg daily, ROSUVASTATIN 40 mg. BP 145/78. ? Continue ATORVASTATIN 40 mg HS ? Holding HCTZ, LISINOPRIL in settings of HOWARD ? Holding METOPROLOL in setting of CHF exacerbation #History of type 2 diabetes On admission initial glucose 140. Last A1c 6.0 on 06/11/2024. Patient takes metformin 500 daily, Tradjenta 5 mg daily for diabetes at home. A1c 10/12/2024 5.8 -Held home medications -Bedside blood glucose checks ACHS -Insulin lispro sliding scale -Carb consistent low diet #Mild hypernatremia-resolved Sodium 146. Likely dehydration. ? Encourage oral fluids ? Daily CMP #GERD ? Continue home FAMOTIDINE 40 mg daily Health maintenance Diet: CHO consistent GI prophylaxis: LORATADINE DVT prophylaxis: ELIQUIS Antibiotics: CEFTRIAXONE, AZITHROMYCIN CODE STATUS: Full code Disposition: Treating sepsis 2/2 pneumonia. The patient's management plan was discussed with my attending physician Dr. De Leon. Martha Canchola, PGY-1 Attending Provider Attestation/Addendum I have examined the patient, reviewed labs and imaging findings, discussed the case with the resident(s), and reviewed entered orders. I agree with the plan of care as outlined in this note, with these additional summaries/recommendations: Patient seen and examined at bedside, currently satting well at 6 L nasal cannula. Chest x-ray shows diffuse bilateral pneumonia with vascular congestion. Will continue patient on Rocephin, azithromycin, DuoNebs and continue to titrate O2 as able. Burak De Leon MD
[2024-10-12] MEDS: ATORVASTATIN CALCIUM 20 MG TABLET 40 MG PO (20:06)
[2024-10-12] MEDS: INSULIN LISPRO (AdmeLOG) 1 UNIT/0.01 ML UNIT SC (20:24)
[2024-10-13] VITALS (16 sets, daily range): BP systolic 121–139; BP diastolic 68–75; PULSE 70–107; RESP 16–94; TEMP 36.3–37.4; O2SAT 91–99
[2024-10-13] MEDS: ALBUTEROL/IPRATROPIUM (Duoneb) RT SOL 3 ML NEBU INH ×4 (00:52→18:04)
[2024-10-13] MEDS: DILTIAZEM 30 MG TABLET PO ×3 (05:11→21:40)
[2024-10-13] MEDS: LEVOTHYROXINE SODIUM 25 MCG TABLET 50 MCG PO (05:11)
[2024-10-13 06:15] LABS: Basophils % (Auto) 0 % (0-2.5); Eosinophils % (Auto) 0 % (0-10); Hematocrit 34.3 % (41.0-53.0); Hemoglobin 11.2 g/dL (13.5-16.0); Immature Granulocytes % (Auto) 1 % (0-0); Immature Granulocytes Auto 0.12 Thou/mm3 (0.00-0.00); Lymphocytes # (Auto) 0.7 Thou/mm3 (1.0-4.8); Lymphocytes % (Auto) 5 % (10-50); Mean Corpuscular HGB Conc 32.7 g/dl (31.0-37.0); Mean Corpuscular Hemoglobin 30.4 pg (25.0-35.0); Mean Corpuscular Volume 93 fL (80-100); Monocytes # (Auto) 0.9 Thou/mm3 (0.0-0.8); Monocytes % (Auto) 7 % (0-12); Neutrophils # (Auto) 11.7 Thou/mm3 (1.8-7.7); Neutrophils % (Auto) 87 % (37-80); Nucleated Red Blood Cell % 0 /100 WBC (0); Platelet Count 135 Thou/mm3 (140-440); RDW Standard Deviation 46.3 fL (35.1-43.9); Red Blood Count 3.68 Miln/mm3 (4.50-5.90); White Blood Count 13.5 Thou/mm3 (3.8-10.6)
[2024-10-13 06:55] LABS: Alanine Aminotransferase 10 U/L (10-49); Albumin, Serum 3.8 gm/dL (3.4-4.8); Albumin/Globulin Ratio 1.4 (1.2-2.2); Alkaline Phosphatase 60 U/L (46-116); Anion Gap 9 (7-16); Aspartate Amino Transferase 21 U/L (0-34); BUN/Creatinine Ratio 24 Ratio (12-20); Blood Urea Nitrogen 24 mg/dL (9-23); Calcium 9.2 mg/dL (8.3-10.6); Calcium (Corrected) 9.4 mg/dL (8.5-10.1); Carbon Dioxide 24.6 mMol/L (20.0-31.0); Chloride 110 mMol/L (98-107); Estimated Creatinine Clearance 59.8 mL/min (>60); Globulin 2.7 gm/dL (2.3-3.5); Glucose 144 mg/dL (74-106); Magnesium 1.9 mg/dL (1.6-2.6); Osmolality,Calculated 293 (275-295); Phosphorous 2.3 mg/dL (2.4-5.1); Potassium 4.3 mMol/L (3.4-5.1); Sodium 144 mMol/L (136-145); Total Protein 6.5 gm/dL (5.7-8.2); eGFR > 60 See Note
[2024-10-13] MEDS: METOPROLOL SUCCINATE XL 25 MG TABCR 50 MG PO (08:42)
[2024-10-13] MEDS: FAMOTIDINE 20 MG TABLET PO (08:42)
[2024-10-13] MEDS: APIXABAN 2.5 MG TABLET 5 MG PO ×2 (08:43→21:40)
[2024-10-13] MEDS: ASPIRIN EC 81 MG TABEC PO (08:43)
--- NOTE | 2024-10-13 09:31 | XR_ITS ---
Examination: AP chest single view Technique one AP portable upright chest single view Exam date and time: October 13, 2024 1006 hours Comparison October 11, 2024 INDICATIONS: Hypoxia this week. FINDINGS: Diffuse bilateral lung opacity again noted Mild prominence left ventricle Ectatic thoracic aorta IMPRESSION: Extensive bilateral pneumonia ARDS again noted
--- NOTE | 2024-10-13 09:53 | XR_ITS ---
Examination: CTA chest with intravenous contrast 2-D reconstructions 3-D reconstructions, vascular Date and time of exam: October 13, 2024 at 1245 hours INDICATIONS: Worsening hypoxia chest pain this week CTDI: vol (mGy) 21 DLP: (mGycm) 383 Technique: Multiple axial sections of the thorax have been obtained. 3 mm slice thickness, from below the hemidiaphragms to above the apices of the lungs. Mediastinal and lung density settings have been obtained. 2-D sagittal and coronal reconstructions. 3-D angiographic renderings, 3-D volume renderings, 3D post processing, vascular maximum intensity projections obtained. Contrast administered is 100 cc Isovue-370. Low dose protocols were performed. One or more of the following dose reduction techniques were used; automated exposure control, adjustment of the mA and/or KV according to patient size, use of iterative reconstruction technique. 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
[2024-10-13] MEDS: INSULIN LISPRO (AdmeLOG) 1 UNIT/0.01 ML UNIT SC ×2 (11:57→17:34)
[2024-10-13 12:37] LABS: Influenza A Ag Negative; Influenza B Ag Negative
[2024-10-13 12:46] LABS: Respiratory Syncytial Virus Ag Negative (Negative)
--- NOTE | 2024-10-13 16:08 | ESPR_ITS ---
<Statement entered by Roxana Cantor MD - 10/13/24 19:35> I discussed with and supervised my co-resident involved in the care of this patient. I agree with the assessment and plan as documented above. Patient seen and examined at bedside. Desaturating in the 80s on OxyMask, transitioned to HFNC. Ordered CTA to rule out PE and patient found to have Type B descending aortic dissection. Unclear if old or new however patient denies chest pain. Patient's neon sign erector, Dr. Edge, was consulted and reviewed outpatient notes. Recommended transfer. Transfer referral placed for cardiothoractic evaluation. In the meantime, will manage with goal BP 120/80 and HR <60. Will continue IV antibiotics for severe bilateral pneumonia and HFNC for hypoxia. Roxana Cantor MD PGY-3 Documentation for date of: 10/13/24 Subjective Subjective Interval history: Patient seen and examined at bedside. Denies any shortness of breath, chest pain, normal appetite. Patient currently on 40 L high flow nasal cannula saturating 89%. WBC up trended to 13.5. Sputum culture still pending. Gram stain positive for +1 GPC/rare GNR. Preliminary blood cultures negative. Continue ceftriaxone 1 g daily and azithromycin 500 daily for CAP. Diffuse bilateral infiltrates noted on chest x-ray and chest CTA. CTA also showed damon type B thoracic aortic dissection beginning distal to the left subclavian artery. Cardiology Dr. Valerio was consulted will see patient today. Recommendations were to keep blood pressure <120/80 and HR around 70. Will restart home medication metoprolol dose 75 mg at bedtime. Transfer nurse was contacted as patient needs to be further evaluated for possible thoracic surgery. Exam Vital Signs Temp Pulse Resp BP Pulse Ox O2 Del Method O2 Flow Rate 98 F 92 28 H 135/73 H 99 High Flow Nasal Cannula 40 10/13/24 12:00 10/13/24 15:27 10/13/24 15:27 10/13/24 14:48 10/13/24 13:02 10/13/24 12:00 10/13/24 15:27 FiO2 50 10/13/24 15:27 Narrative Exam General: Sitting comfortably in bed. No acute distress, cooperative Eyes: Pupils are equal and reactive to light bilaterally HENT: Atraumatic, normocephalic. No JVD noted. Mucosa moist. Cardiovascular: Normal S1 and S2. Regular rate and rhythm. Respiratory: Mild end expiratory wheezing b/L, on 40 L HFNC Abdomen: Soft, nontender, not distended, normal bowel sounds. Skin: Warm to touch, dry, no rashes noted, small bruises noted throughout extremities Musculoskeletal: No gross injuries. Able to move all 4 extremities. Neuro: Grossly intact Psych: Normal affect and mood Objective Labs 10/14/24 05:43 10/14/24 05:43 Labs: Laboratory Results - last 24 hr 10/13/24 10/13/24 05:06 10:45 WBC 13.5 H RBC 3.68 L Hgb 11.2 L Hct 34.3 L MCV 93 MCH 30.4 MCHC 32.7 RDW Std Deviation 46.3 H Plt Count 135 L Neut % (Auto) 87 H Lymph % (Auto) 5 L [place] % (Auto) 7 Eos % (Auto) 0 Baso % (Auto) 0 Neut # (Auto) 11.7 H Lymph # (Auto) 0.7 L [place] # (Auto) 0.9 H Eos # (Auto) 0.0 Baso # (Auto) 0.0 Immature Gran # (Auto) 0.12 H Absolute Nucleated RBC 0.00 Immature Gran % 1 H Nucleated RBC % 0 Sodium 144 Potassium 4.3 Chloride 110 H Carbon Dioxide 24.6 Anion Gap 9 BUN 24 H Creatinine 1.0 Estim Creat Clear Calc 59.8 L eGFR > 60 BUN/Creatinine Ratio 24 H Glucose 144 H Calculated Osmolality 293 Calcium 9.2 Corrected Calcium 9.4 Phosphorus 2.3 L Magnesium 1.9 Total Bilirubin 1.0 AST 21 ALT 10 Alkaline Phosphatase 60 D Total Protein 6.5 Albumin 3.8 Globulin 2.7 Albumin/Globulin Ratio 1.4 Influenza A (Rapid) Negative Influenza B (Rapid) Negative RSV Rapid Negative Quality Measures Quality Measures none Advance care planning discussed with:: patient Assessment & Plan Assessment Current Active Medications: Generic Name Dose Route Start Last Admin Trade Name Freq PRN Reason Stop Dose Admin Acetaminophen 650 mg 10/11/24 23:24 Acetaminophen 325 Mg Tablet PO 11/10/24 23:23 Q6H PRN PAIN SCALE 1-3 (mild Acetaminophen 650 mg 10/11/24 23:24 Acetaminophen 325 Mg Tablet PO 11/10/24 23:23 Q6H PRN Fever >100 Albuterol/Ipratropium 3 ml 10/12/24 01:00 10/13/24 13:02 Albuterol/Ipratropium (Duoneb) Rt Yesenia 3 Ml Nebu INH 11/11/24 00:59 3 ml Q6HRRT TERESA Administration Apixaban 5 mg 10/11/24 23:45 10/13/24 08:43 Apixaban 2.5 Mg Tablet PO 11/10/24 23:44 5 mg BID TERESA Administration Aspirin 81 mg 10/12/24 09:00 10/13/24 08:43 Aspirin Ec 81 Mg Tabec PO 11/11/24 08:59 81 mg QDAY TERESA Administration Atorvastatin Calcium 40 mg 10/12/24 21:00 10/12/24 20:06 Atorvastatin Calcium 20 Mg Tablet PO 11/11/24 20:59 40 mg HS TERESA Administration Dextrose 25 ml 10/11/24 23:36 Dextrose 50%-Water Inj 50 Ml Syringe IV 11/10/24 23:35 Q15MIN PRN BG 50-70 responsive npo pt Dextrose 50 ml 10/11/24 23:36 Dextrose 50%-Water Inj 50 Ml Syringe IV 11/10/24 23:35 Q15MIN PRN BG <50 OR BG <70 & pt unresponsive Diltiazem HCl 30 mg 10/11/24 23:45 10/13/24 14:48 Diltiazem 30 Mg Tablet PO 11/10/24 23:44 30 mg TID TERESA Administration Famotidine 20 mg 10/12/24 09:00 10/13/24 08:42 Famotidine 20 Mg Tablet PO 11/11/24 08:59 20 mg QDAY TERESA Administration Glucagon 1 mg 10/11/24 23:36 Glucagon Inj 1 Mg Vial IM Q15MIN PRN BG <70, and no IV access Ceftriaxone Sodium/Dextrose 50 mls @ 100 mls/hr 10/12/24 21:00 10/12/24 20:07 Rocephin/D5w 1gm Iv Premix IV 10/19/24 20:59 100 mls/hr HS TERESA Administration Azithromycin 500 mg/ Sodium 250 mls @ 250 mls/hr 10/12/24 21:00 10/12/24 20:08 Chloride IV 10/19/24 20:59 250 mls/hr HS TERESA Administration Insulin Human Lispro 0 unit 10/12/24 07:30 10/13/24 11:57 Insulin Lispro (Admelog) 1 Unit/0.01 Ml Unit SC 11/11/24 07:29 1 unit ACHS TERESA Administration Protocol Levothyroxine Sodium 50 mcg 10/12/24 06:00 10/13/24 05:11 Levothyroxine Sodium 25 Mcg Tablet PO 11/11/24 05:59 50 mcg ACBR TERESA Administration Metoprolol Succinate 50 mg 10/12/24 09:00 10/13/24 08:42 Metoprolol Succinate Xl 25 Mg Tabcr PO 11/11/24 08:59 50 mg QDAY TERESA Administration Ondansetron HCl 4 mg 10/11/24 23:24 Ondansetron Inj 2 Mg/Ml Inj 2 Ml IV 11/10/24 23:23 Q6H PRN NAUSEA OR VOMITING Protocol Plan Rasheed Mayo is 79-year-old male PMHx of AAA 10 years ago s/p stenting, CAD with stents, A-fib, HTN, HLD, hypothyroidism, T2DM and GERD, presenting with fever, cough, SOB. Admitted for sepsis 2/2 pneumonia. #AHRF 2/2 CAP #Sepsis 2/2 PNA Presenting with scott sputum cough, fever, and SOB x 3 days. Met sepsis with 2/3 SIRS criteria: tachypnea and leukocytosis, pneumonia likely source, endorgan damage (HOWARD). CXR showed bibasilar pneumonia. Basilar lung crackles and 1+ bilateral lower extremity edema on exam. BNP 206. PSI index 81 indicates class III risk. CURB-65 of 2 indicates Moderate risk. ? Continue CEFTRIAXONE 1 g daily (10/11 to present) ? Continue AZITHROMYCIN 500 daily (10/11 to present) ? Continue DuoNebs q.6h. PRN ? Chest physio therapy ? Pending echocardiogram ? Pending cultures: Blood and sputum #Type B thoracic aortic dissection CT chest on 10/13 showed [place] type B thoracic aortic dissection beginning distal to the left subclavian artery with aneurysmal dilatation ascending thoracic aorta and upper abdominal aorta Unsure at this time of dissection is new or old. Patient is denying any chest pain or back pain. -Brand Strategy Manager Dr. Valerio consulted -Recommendations to keep blood pressure less than 120/80 and heart rate around 70. -restart home metoprolol dose 75 mg HS -Attempting to transfer patient to higher care facility. Needs to be further evaluated for any possible thoracic surgery #Prerenal HOWARD-resolved Likely in settings of dehydration, sepsis, CHF exacerbation. CR 1.4 with baseline around 1.2. ? Renally dose meds, avoid overdiuresis and NEPHROTOXINS ? Daily CMP -monitor IOs #Hx A-fib, rate controlled #Hx of AAA s/p stent #Hx of CAD s/p stent Patient follows up with cardiology for annual screening in [place]. Last visit last week. Denies chest pain or palpitations. Troponin normal. [id number] 5 point outweighs risk of bleed with HAS-BLED of 3. ? Continued home ASPIRIN 81 mg daily ? Continued home ELIQUIS 5 mg BID ? Continue home DILTIAZEM 30 mg TID #Hx HTN #Hx HLD, #Hx hypothyroidism Home meds HCTZ 12.5 daily, LISINOPRIL 40 BID, METOPROLOL 50 mg daily, ROSUVASTATIN 40 mg. BP 145/78. ? Continue ATORVASTATIN 40 mg HS ? Holding HCTZ, LISINOPRIL in settings of HOWARD ? Holding METOPROLOL in setting of CHF exacerbation #History of type 2 diabetes On admission initial glucose 140. Last A1c 6.0 on 06/11/2024. Patient takes metformin 500 daily, Tradjenta 5 mg daily for diabetes at home. A1c 10/12/2024 5.8 -Held home medications -Bedside blood glucose checks ACHS -Insulin lispro sliding scale -Carb consistent low diet #Mild hypernatremia-resolved Sodium 146. Likely dehydration. ? Encourage oral fluids ? Daily CMP #GERD ? Continue home FAMOTIDINE 40 mg daily Health maintenance Diet: CHO consistent GI prophylaxis: LORATADINE DVT prophylaxis: ELIQUIS Antibiotics: CEFTRIAXONE, AZITHROMYCIN CODE STATUS: Full code Disposition: Treating sepsis 2/2 pneumonia and aortic dissection The patient's management plan was discussed with my attending physician Dr. Steele and senior Dr. Cantor. Martha Canchola, PGY-1 Attending Provider Attestation/Addendum Face to face evaluation was performed by me. I have personally seen and examined the patient. I discussed the assessment and plan with the entire medicine team. I reviewed available medical records, imaging studies, laboratory results. I agree with the above subjective data, objective findings, assessment and plan except as corrected by me or noted below Sepsis ,poa due to below, without septic shock Bacterial PNA Type B [place] descending Aortic dissection with aortic aneurismal dilation 5.2 cm- this incidental finding, not related to patients presenting signs/symptoms. Hx A-fib, rate controlled #Hx of AAA s/p stent #Hx of CAD s/p stent - continue current management for PNA/ Sepsis Obtain CTA- initiate trasnfer to tertiary care center- CT Surgery availability Cardiology Dr Valerio was contacted by medicine team regarding dissection. aneurysm
--- NOTE | 2024-10-13 16:22 | PC.CC ---
Addendum entered by Milena Burgos RN 10/13/24 19:25: 1920 received call from Vidhya at [facility] stated her cardio-thiracic stated it's a vasular surgeon case and her vascular surgeon was consulted. Per Vascular surgeon Segun Middleton due to complexity of the case, pt had AAA in past. Pt needs to be transferred to tertiary level hospital. Addendum entered by Milena Burgos RN 10/13/24 19:06: 1858 received call from Gomez PIERRE nurse at [facility] that Dr. Romano spoke to Dr. Vasquez and Dr. Romano stated this can be done as outpatient. Gomez also stated Dr. Villalba stated he is going to access the pt and see if pt still need transfer. 1849 received call from Gomez PIERRE nurse at [facility] stated Dr. Romano vascular surgeon wants to speak with Dr. Vasquez. Contact number provided. Addendum entered by Milena Burgos RN 10/13/24 18:42: 1838 spoke to Gomez at [facility] and updated pt AAA was done at [facility]. 6 spoke to bedside nurse regarding where pt AAA was done. I found out it was done at [facility]. Addendum entered by Milena Burgos RN 10/13/24 18:00: 1748 received call from Maribell at [facility]. She stated at their facility cardiovascular do type B surgeries not cardio-thoracic. She stated if it's OK to present to cardiovascular instead. She also asked about who did pt's AAA with stenting. I informed her I will find it and let her know. 1746 received call from Vidhya at [facility] inquiring about if pt is inpatient status. [address] Canchola that she spoke to her attending and they will repeat the CTA in am. 1741 received call from Abigail at [facility]. She stated she informed Dr. Canchola to do repeat CTA with proper contrast bolus timing to assess the complete extent of the aortic dissection per radiologist recommendations. [address] Canchola that [facility] nurse Abigail stated to do repeat CTA study per radiologist recommendations CTA study with proper contrast bolus timing to assess the complete extent of the aortic dissection. Addendum entered by Milena Burgos RN 10/13/24 17:42: 1724 received call from Abigail from [facility]. She wants to speak with Dr. Canchola. Call transferred. Addendum entered by Milena Burgos RN 10/13/24 17:04: 1703 clinicals sent to [facility]. Addendum entered by Milena Burgos RN 10/13/24 17:00: 1655 called [facility], spoke to Radha and initiated the transfer. She stated to fax clinicals. She stated the nurse will give me call back. Addendum entered by Milena Burgos RN 10/13/24 16:50: 1643 called [facility], spoke to Dea and initiate the transfer request. Addendum entered by Milena Burgos RN 10/13/24 16:43: 1641 called [facility], spoke to Rodri and initiated the transfer. She stated request is declined due to no CTC services available. Addendum entered by Milena Burgos RN 10/13/24 16:35: 1632 called [facility], spoke to Maribell and initiated the transfer request. Addendum entered by Milena Burgos RN 10/13/24 16:28: 1627 images pushed over to [facility] through [employer]. Original Note: 1617 clinicals sent to [facility]. [address] Cantor that pt needs to be transferred for Type B Thaddeus aortic dissection needs cardio-thoracic surgery services.
[2024-10-13] MEDS: ATORVASTATIN CALCIUM 20 MG TABLET 40 MG PO (21:40)
[2024-10-13] MEDS: METOPROLOL SUCCINATE XL 25 MG TABCR 75 MG PO (21:40)
[2024-10-13] MEDS: cefTRIAXone/D5w 1gm IV premix 50 ML IV (21:41)
[2024-10-13] MEDS: AZITHROMYCIN INJ 500 MG in SODIUM CHLORIDE 0.9% 250 ML 250 ML 250 MG IV (21:41)
[2024-10-14] VITALS (21 sets, daily range): BP systolic 122–145; BP diastolic 66–77; PULSE 64–98; RESP 19–92; TEMP 36.2–37; O2SAT 90–96
[2024-10-14] MEDS: ALBUTEROL/IPRATROPIUM (Duoneb) RT SOL 3 ML NEBU INH ×4 (00:08→18:19)
[2024-10-14] MEDS: LEVOTHYROXINE SODIUM 25 MCG TABLET 50 MCG PO (05:23)
[2024-10-14] MEDS: DILTIAZEM 30 MG TABLET PO ×3 (05:23→21:03)
[2024-10-14 06:24] LABS: Basophils % (Auto) 0 % (0-2.5); Eosinophils # (Auto) 0.2 Thou/mm3 (0.0-0.5); Eosinophils % (Auto) 2 % (0-10); Hematocrit 34.1 % (41.0-53.0); Hemoglobin 11.3 g/dL (13.5-16.0); Immature Granulocytes % (Auto) 1 % (0-0); Immature Granulocytes Auto 0.12 Thou/mm3 (0.00-0.00); Lymphocytes # (Auto) 0.8 Thou/mm3 (1.0-4.8); Lymphocytes % (Auto) 7 % (10-50); Mean Corpuscular HGB Conc 33.1 g/dl (31.0-37.0); Mean Corpuscular Hemoglobin 30.5 pg (25.0-35.0); Mean Corpuscular Volume 92 fL (80-100); Monocytes # (Auto) 0.9 Thou/mm3 (0.0-0.8); Monocytes % (Auto) 8 % (0-12); Neutrophils # (Auto) 9.6 Thou/mm3 (1.8-7.7); Neutrophils % (Auto) 82 % (37-80); Nucleated Red Blood Cell % 0 /100 WBC (0); Platelet Count 156 Thou/mm3 (140-440); RDW Standard Deviation 46.2 fL (35.1-43.9); White Blood Count 11.7 Thou/mm3 (3.8-10.6)
[2024-10-14 06:54] LABS: Alanine Aminotransferase 12 U/L (10-49); Albumin, Serum 3.9 gm/dL (3.4-4.8); Albumin/Globulin Ratio 1.3 (1.2-2.2); Alkaline Phosphatase 66 U/L (46-116); Anion Gap 9 (7-16); Aspartate Amino Transferase 22 U/L (0-34); BUN/Creatinine Ratio 24 Ratio (12-20); Bilirubin,Total 0.8 mg/dL (0.3-1.2); Blood Urea Nitrogen 24 mg/dL (9-23); Calcium 9.2 mg/dL (8.3-10.6); Calcium (Corrected) 9.3 mg/dL (8.5-10.1); Carbon Dioxide 24.8 mMol/L (20.0-31.0); Chloride 109 mMol/L (98-107); Estimated Creatinine Clearance 59.8 mL/min (>60); Globulin 2.9 gm/dL (2.3-3.5); Glucose 126 mg/dL (74-106); Magnesium 1.9 mg/dL (1.6-2.6); Osmolality,Calculated 290 (275-295); Phosphorous 2.6 mg/dL (2.4-5.1); Potassium 4.1 mMol/L (3.4-5.1); Sodium 143 mMol/L (136-145); Total Protein 6.8 gm/dL (5.7-8.2); eGFR > 60 See Note
--- NOTE | 2024-10-14 07:34 | PD.IMCONS ---
HPI Data of Consult Requesting Physician: Danyel Paul MD Primary Care Provider: Cristobal Chowdhury MD Consult Narrative History of present illness: This is a 79-year-old male PMHx of AAA 10 years ago s/p stenting, CAD with stents, HTN, HLD, hypothyroidism, T2DM and GERD pt seen in the ER with sob and cough and found to have pneumonia CTchest was done showed thoracic aortic aneurysm dissecting Type B cardiology consulted pt denies chest pain / back pain - this appears to be chronic cc:: cc: Danyel Paul MD Meds Home Medications and Allergies Home Medications ?Medication ?Instructions ?Recorded ?Confirmed ?Type lisinopril 40 mg tablet 40 mg PO BID #0 tabs 12/19/16 10/12/24 History diltiazem HCl 30 mg tablet 30 mg PO TID 03/05/19 10/12/24 History (Cardizem) famotidine 40 mg tablet (Pepcid) 40 mg PO DAILY 06/30/22 10/12/24 History levothyroxine 50 mcg tablet 50 mcg PO QDAY ##0 06/30/22 10/12/24 History alendronate 70 mg tablet 70 mg PO QWEEK 08/08/22 10/12/24 History Held on 10/12/24. Instructions: Order Change aspirin 81 mg tablet,delayed 81 mg PO QDAY 08/08/22 10/12/24 History release calcium 250 mg (phosphate)-vit D3 4 tab PO TIDWM 08/08/22 10/12/24 History 12.5 mcg (500 unit) chewable tablet (Citracal-D3 Gummies) rosuvastatin 40 mg tablet 40 mg PO HS 08/08/22 10/12/24 History ferrous sulfate 325 mg (65 mg 325 mg PO QDAY 08/10/22 10/12/24 History iron) tablet (Iron (ferrous sulfate)) Held on 10/12/24. Instructions: Doctor's Order metoprolol succinate 50 mg 75 mg PO HS 08/10/22 10/12/24 History tablet,extended release 24 hr rivaroxaban 20 mg tablet (Xarelto) mg 08/14/22 History Held on 10/12/24. Instructions: Doctor's Order apixaban 5 mg tablet (Eliquis) 5 mg PO BID 10/12/24 10/12/24 History hydrochlorothiazide 12.5 mg tablet 12.5 mg PO QDAY 10/12/24 10/12/24 History metformin 500 mg tablet 500 mg PO QDAY 10/12/24 10/12/24 History Allergies Allergy/AdvReac Type Severity Reaction Status Date / Time ciprofloxacin Allergy Severe Hives Verified 10/11/24 16:58 oats Allergy Severe Vomiting Verified 10/11/24 16:58 Sulfa (Sulfonamide Allergy Severe Anaphylaxis Verified 10/11/24 16:58 Antibiotics) Exam Vital Signs Temp Pulse Resp BP Pulse Ox O2 Del Method O2 Flow Rate 97.8 F 98 20 145/73 H 90 L High Flow Nasal Cannula 40 10/14/24 07:27 10/14/24 07:27 10/14/24 07:27 10/14/24 07:27 10/14/24 07:27 10/14/24 07:27 10/14/24 07:27 FiO2 60 10/14/24 06:53 Routine HEENT Exam Head: Present normocephalic and atraumatic Eye: Present EOMI and PERRL ENT: Present mucous membranes moist Routine Neck Exam Neck: Present supple and trachea midline Routine Respiratory Exam Respiratory: Present chest non-tender, lungs clear, normal breath sounds and no resp distress Routine Cardiovascular Exam Cardiovascular: Present RRR Routine Abdominal Exam Abdominal: Present soft and normoactive bowel sounds Routine Extremities Exam Extremities: Present full ROM Routine Skin Exam Skin: Present intact, dry and warm Routine Neurological Exam Neurological: Present alert, oriented X3 and CN II-XII intact Routine Psychiatric Exam Psychiatric: Present normal affect and normal thought process Results Labs 10/14/24 05:43 10/14/24 05:43 Labs: Short CBC 10/14/24 Range/Units 05:43 WBC 11.7 H (3.8-10.6) Thou/mm3 Hgb 11.3 L (13.5-16.0) g/dL Hct 34.1 L (41.0-53.0) % Plt Count 156 (140-440) Thou/mm3 BMP 10/14/24 05:43 Sodium 143 Potassium 4.1 Chloride 109 H Carbon Dioxide 24.8 BUN 24 H Creatinine 1.0 Glucose 126 H Calcium 9.2 Liver Function 10/14/24 Range/Units 05:43 Total Bilirubin 0.8 (0.3-1.2) mg/dL AST 22 (0-34) U/L ALT 12 (10-49) U/L Alkaline Phosphatase 66 (46-116) U/L Albumin 3.9 (3.4-4.8) gm/dL Assessment and Plan Assessment and plan (1) Bilateral pneumonia: Status: Acute (2) Paroxysmal A-fib: Status: Chronic (3) Diabetes type 2 with atherosclerosis of arteries of extremities: Status: Chronic (4) Coronary artery disease: Status: Chronic (5) Hypertension: Status: Chronic Additional Assessment & Plan Additional Plan: [place] type B thoracic aortic dissection beginning distal to the left subclavian artery with aneurysmal dilatation ascending thoracic aorta and upper abdominal aorta noted Type B dissection is typically managed with medical observation however if impending rupture is persent may need surgical / endovascular intervention recommend transfer to a facility with thoracic surgery available for further evaluation (4) Coronary artery disease Qualifiers: Coronary Disease-Associated Artery/Lesion type: due to calcified coronary lesion Qualified Code(s): I25.10 - Atherosclerotic heart disease of [place] coronary artery without angina pectoris; I25.84 - Coronary atherosclerosis due to calcified coronary lesion (5) Hypertension Qualifiers: Hypertension type: renovascular hypertension Qualified Code(s): I15.0 - Renovascular hypertension
[2024-10-14] MEDS: ASPIRIN EC 81 MG TABEC PO (08:02)
[2024-10-14] MEDS: FAMOTIDINE 20 MG TABLET PO (08:03)
[2024-10-14] MEDS: APIXABAN 2.5 MG TABLET 5 MG PO ×2 (08:03→21:04)
--- NOTE | 2024-10-14 09:05 | XR_ITS ---
Examination: CTA chest with intravenous contrast 2-D reconstructions 3-D reconstructions, vascular Date and time of exam: October 14, 2024 1102 hours Comparison October 13, 2024 INDICATIONS: Worsening hypoxia chest pain beginning 2 days ago CTDI: vol (mGy) 18 DLP: (mGycm) 376 Technique: Multiple axial sections of the thorax have been obtained. 3 mm slice thickness, from below the hemidiaphragms to above the apices of the lungs. Mediastinal and lung density settings have been obtained. 2-D sagittal and coronal reconstructions. 3-D angiographic renderings, 3-D volume renderings, 3D post processing, vascular maximum intensity projections obtained. Contrast administered is 100 cc [id number]. Low dose protocols were performed. One or more of the following dose reduction techniques were used; automated exposure control, adjustment of the mA and/or KV according to patient size, use of iterative reconstruction technique. Findings: Thoracic aortic arch aneurysmal dilatation 4.3 cm Contrast opacification distal aorta is not optimal Findings are consistent with Thaddeus type B thoracic aortic dissection, mid descending thoracic aorta measuring 5.7 cm in dimension No pulmonary artery emboli Severe bilateral lung opacity, small bilateral pleural effusions Large retrocardiac gastric hernia Aneurysmal dilatation upper abdominal aorta 4.2 cm IMPRESSION: Thaddeus type B thoracic aortic dissection with aneurysmal dilatation ascending thoracic aorta and upper abdominal aorta Negative for pulmonary artery emboli Severe bilateral pneumonia ARDS pattern
--- NOTE | 2024-10-14 09:39 | PC.CM ---
Insurance came back with a co pay of $572.99 for 9-day supply. Each week will vary but this is approximately for each week.
--- NOTE | 2024-10-14 09:46 | PC.CM ---
Addendum entered by Elzbieta Ness RN 10/14/24 15:51: Ericka with [facility] called me and stated they did not receive the CTA radiology I pushed over via [employer]. I spoke to Catalina and she states [employer] is not working either, due to the synapse upgrade. She was going to reached out to someone to have them fix the problem. I updated Ericka with [facility]. I was able to fax the report today. Addendum entered by Elzbieta Ness RN 10/14/24 15:10: I was finally able to push over images via [employer]. I updated Ericka with the transfer center at [facility]. Addendum entered by Elzbieta Ness RN 10/14/24 13:40: I was able to get a hold of Dr. Canchola and I got her direct number to provide to Ericka [facility]. I provided her with VS and update on patient. I let her know the CTA was done and I do not have the report yet. I let her know I was trying to get images pushed over an other way because I was having trouble with synapse. Addendum entered by Elzbieta Ness RN 10/14/24 12:21: I tried sending CT from today to [facility] but our synapse is not working properly. I spoke to Catalina and she corrected the access but it is still stating failed transmission. I called Radiology at [phone] and asked them to make me a CD. Original Note: not I received a call from Ericka with [facility]. She wanted me to push over images from today. I let her know patient had not gone to xray ray, but he was going to be going down for xray soon. She asked that I push over images and fax report once it is done.
--- NOTE | 2024-10-14 10:46 | CHAP ---
Patient was visited by a Spiritual Care Volunteer on 10/14/2024 between 0900 and 1000 and received encouragement, comfort, and/or prayer.
--- NOTE | 2024-10-14 15:22 | ESPR_ITS ---
<Statement entered by Roxana Cantor MD - 10/14/24 16:05> Patient seen and examined at bedside. Patient appears more awake, alert than yesterday. Patient states he is feeling better mentation alejandre. Remains on HFNC 40L at 60% FiO2 for his pneumonia, saturating at 90-95%. Sputum grew GPC and GNR. Leukocytosis improving. Will follow up with cultures and continue azithromycin and ceftriaxone. Explained aortic dissection to patient and plans for transfer for endovascular/cardiothoracic evaluation. Patient verbalized understanding. Repeat CTA abdomen for better contrast timing for clearer picture. Continue to keep SBP < 120/80 and HR <60. Roxana Cantor MD PGY-3 Documentation for date of: 10/14/24 Subjective Subjective Interval history: Patient seen and examined at bedside. No new complaints of shortness of breath or chest pain. He is sitting comfortably in bed adequate appetite. Continues to be on high flow nasal cannula at 40 L 60% FiO2 saturating at 92%. Appreciate expiratory wheezing on physical exam. Repeat CTA chest confirms finding of thoracic aortic dissection with aneurysmal dilatation. Spoke with [facility] humanities coordinator Ericka. Stated that she will present patient's case. Official transfer is TBD. Patient's family was at bedside who agreed with plan of care and possible transfer. Dr. Kang is cardiothoracic surgeon who repaired patient's AAA. He was contacted as well. Does not know about patient's aortic dissection or any previous history of it. Sputum grew GPC and GNR. Leukocytosis is improving. Continue ceftriaxone and azithromycin for CAP. Follow-up with cocci serology. Exam Vital Signs Temp Pulse Resp BP Pulse Ox O2 Del Method O2 Flow Rate 98.1 F 73 24 H 138/66 H 92 L High Flow Nasal Cannula 40 10/14/24 11:42 10/14/24 14:08 10/14/24 14:08 10/14/24 13:18 10/14/24 14:08 10/14/24 11:42 10/14/24 14:08 FiO2 60 10/14/24 14:08 Narrative Exam General: Sitting comfortably in bed. No acute distress, cooperative Eyes: Pupils are equal and reactive to light bilaterally HENT: Atraumatic, normocephalic. No JVD noted. Mucosa moist. Cardiovascular: Normal S1 and S2. Regular rate and rhythm. Respiratory: Mild end expiratory wheezing b/L, on 40 L HFNC Abdomen: Soft, nontender, not distended, normal bowel sounds. Skin: Warm to touch, dry, no rashes noted, small bruises noted throughout extremities Musculoskeletal: No gross injuries. Able to move all 4 extremities. Neuro: Grossly intact Psych: Normal affect and mood Objective Labs 10/14/24 05:43 10/14/24 05:43 Labs: Laboratory Results - last 24 hr 10/14/24 05:43 WBC 11.7 H RBC 3.70 L Hgb 11.3 L Hct 34.1 L MCV 92 MCH 30.5 MCHC 33.1 RDW Std Deviation 46.2 H Plt Count 156 Neut % (Auto) 82 H Lymph % (Auto) 7 L Williams % (Auto) 8 Eos % (Auto) 2 Baso % (Auto) 0 Neut # (Auto) 9.6 H Lymph # (Auto) 0.8 L Williams # (Auto) 0.9 H Eos # (Auto) 0.2 Baso # (Auto) 0.0 Immature Gran # (Auto) 0.12 H Absolute Nucleated RBC 0.00 Immature Gran % 1 H Nucleated RBC % 0 Sodium 143 Potassium 4.1 Chloride 109 H Carbon Dioxide 24.8 Anion Gap 9 BUN 24 H Creatinine 1.0 Estim Creat Clear Calc 59.8 L eGFR > 60 BUN/Creatinine Ratio 24 H Glucose 126 H Calculated Osmolality 290 Calcium 9.2 Corrected Calcium 9.3 Phosphorus 2.6 Magnesium 1.9 Total Bilirubin 0.8 AST 22 ALT 12 Alkaline Phosphatase 66 Total Protein 6.8 Albumin 3.9 Globulin 2.9 Albumin/Globulin Ratio 1.3 Quality Measures Quality Measures none Advance care planning discussed with:: patient Assessment & Plan Assessment Current Active Medications: Generic Name Dose Route Start Last Admin Trade Name Freq PRN Reason Stop Dose Admin Acetaminophen 650 mg 10/11/24 23:24 Acetaminophen 325 Mg Tablet PO 11/10/24 23:23 Q6H PRN PAIN SCALE 1-3 (mild Acetaminophen 650 mg 10/11/24 23:24 Acetaminophen 325 Mg Tablet PO 11/10/24 23:23 Q6H PRN Fever >100 Albuterol/Ipratropium 3 ml 10/12/24 01:00 10/14/24 12:20 Albuterol/Ipratropium (Duoneb) Rt Yesenia 3 Ml Nebu INH 11/11/24 00:59 3 ml Q6HRRT TERESA Administration Apixaban 5 mg 10/11/24 23:45 10/14/24 08:03 Apixaban 2.5 Mg Tablet PO 11/10/24 23:44 5 mg BID TERESA Administration Aspirin 81 mg 10/12/24 09:00 10/14/24 08:02 Aspirin Ec 81 Mg Tabec PO 11/11/24 08:59 81 mg QDAY TERESA Administration Atorvastatin Calcium 40 mg 10/12/24 21:00 10/13/24 21:40 Atorvastatin Calcium 20 Mg Tablet PO 11/11/24 20:59 40 mg HS TERESA Administration Dextrose 25 ml 10/11/24 23:36 Dextrose 50%-Water Inj 50 Ml Syringe IV 11/10/24 23:35 Q15MIN PRN BG 50-70 responsive npo pt Dextrose 50 ml 10/11/24 23:36 Dextrose 50%-Water Inj 50 Ml Syringe IV 11/10/24 23:35 Q15MIN PRN BG <50 OR BG <70 & pt unresponsive Diltiazem HCl 30 mg 10/11/24 23:45 10/14/24 13:18 Diltiazem 30 Mg Tablet PO 11/10/24 23:44 30 mg TID TERESA Administration Famotidine 20 mg 10/12/24 09:00 10/14/24 08:03 Famotidine 20 Mg Tablet PO 11/11/24 08:59 20 mg QDAY TERESA Administration Glucagon 1 mg 10/11/24 23:36 Glucagon Inj 1 Mg Vial IM Q15MIN PRN BG <70, and no IV access Ceftriaxone Sodium/Dextrose 50 mls @ 100 mls/hr 10/12/24 21:00 10/13/24 21:41 Rocephin/D5w 1gm Iv Premix IV 10/19/24 20:59 100 mls/hr HS TERESA Administration Azithromycin 500 mg/ Sodium 250 mls @ 250 mls/hr 10/12/24 21:00 10/13/24 21:41 Chloride IV 10/19/24 20:59 250 mls/hr HS TERESA Administration Insulin Human Lispro 0 unit 10/12/24 07:30 10/14/24 11:44 Insulin Lispro (Admelog) 1 Unit/0.01 Ml Unit SC 11/11/24 07:29 Not Given ACHS [facility] Protocol Levothyroxine Sodium 50 mcg 10/12/24 06:00 10/14/24 05:23 Levothyroxine Sodium 25 Mcg Tablet PO 11/11/24 05:59 50 mcg ACBR TERESA Administration Metoprolol Succinate 75 mg 10/13/24 21:00 10/13/24 21:40 Metoprolol Succinate Xl 25 Mg Tabcr PO 11/12/24 20:59 75 mg HS TERESA Administration Ondansetron HCl 4 mg 10/11/24 23:24 Ondansetron Inj 2 Mg/Ml Inj 2 Ml IV 11/10/24 23:23 Q6H PRN NAUSEA OR VOMITING Protocol Plan Rasheed Mayo is 79-year-old male PMHx of AAA 10 years ago s/p stenting, CAD with stents, A-fib, HTN, HLD, hypothyroidism, T2DM and GERD, presenting with fever, cough, SOB. Admitted for sepsis 2/2 pneumonia. #AHRF 2/2 CAP #Sepsis 2/2 PNA Presenting with scott sputum cough, fever, and SOB x 3 days. Met sepsis with 2/3 SIRS criteria: tachypnea and leukocytosis, pneumonia likely source, endorgan damage (HOWARD). CXR showed bibasilar pneumonia. Basilar lung crackles and 1+ bilateral lower extremity edema on exam. BNP 206. PSI index 81 indicates class III risk. CURB-65 of 2 indicates Moderate risk. ? Continue CEFTRIAXONE 1 g daily (10/11 to present) ? Continue AZITHROMYCIN 500 daily (10/11 to present) ? Continue DuoNebs q.6h. PRN ? Chest physio therapy ? Pending echocardiogram ? sputum stain positive for GPC, GNR #Type B thoracic aortic dissection CT chest on 10/13 showed Thaddeus type B thoracic aortic dissection beginning distal to the left subclavian artery with aneurysmal dilatation ascending thoracic aorta and upper abdominal aorta Unsure at this time of dissection is new or old. Patient is denying any chest pain or back pain. -Ice Cream Dispenser Dr. Valerio consulted -Recommendations to keep blood pressure less than 120/80 and heart rate around 70. -Continue home metoprolol dose 75 mg HS -Attempting to transfer patient to higher care facility. Needs to be further evaluated for any possible thoracic surgery -[facility] is evaluating patient's case at this time. #Prerenal HOWARD-resolved Likely in settings of dehydration, sepsis, CHF exacerbation. CR 1.4 with baseline around 1.2. ? Renally dose meds, avoid overdiuresis and NEPHROTOXINS ? Daily CMP -monitor IOs #Hx A-fib, rate controlled #Hx of AAA s/p stent #Hx of CAD s/p stent Patient follows up with cardiology for annual screening in [place]. Last visit last week. Denies chest pain or palpitations. Troponin normal. [id number] 5 point outweighs risk of bleed with HAS-BLED of 3. ? Continued home ASPIRIN 81 mg daily ? Continued home ELIQUIS 5 mg BID ? Continue home DILTIAZEM 30 mg TID #Hx HTN #Hx HLD, #Hx hypothyroidism Home meds HCTZ 12.5 daily, LISINOPRIL 40 BID, METOPROLOL 50 mg daily, ROSUVASTATIN 40 mg. BP 145/78. ? Continue ATORVASTATIN 40 mg HS ? Holding HCTZ, LISINOPRIL in settings of HOWARD ? resume METOPROLOL 75 mg HS #History of type 2 diabetes On admission initial glucose 140. Last A1c 6.0 on 06/11/2024. Patient takes metformin 500 daily, Tradjenta 5 mg daily for diabetes at home. A1c 10/12/2024 5.8 -Held home medications -Bedside blood glucose checks ACHS -Insulin lispro sliding scale -Carb consistent low diet #Mild hypernatremia-resolved Sodium 146. Likely dehydration. ? Encourage oral fluids ? Daily CMP #GERD ? Continue home FAMOTIDINE 40 mg daily Health maintenance Diet: CHO consistent GI prophylaxis: LORATADINE DVT prophylaxis: ELIQUIS Antibiotics: CEFTRIAXONE, AZITHROMYCIN CODE STATUS: Full code Disposition: Treating sepsis 2/2 pneumonia and aortic dissection The patient's management plan was discussed with my attending physician Dr. Steele and senior Dr. Cantor. Martha Canchola, PGY-1 Attending Provider Attestation/Addendum Face to face evaluation was performed by me. I have personally seen and examined the patient. I discussed the assessment and plan with the entire medicine team. I reviewed available medical records, imaging studies, laboratory results. 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 Hx A-fib, rate controlled #Hx of AAA s/p stent #Hx of CAD s/p stent - continue current management for PNA/ Sepsis * Obtain CTA- initiate transfer to tertiary care center- CT Surgery availability- repeat CTA was requested- done- transfer nurse on board, Cardiology Dr Valerio was contacted by medicine team regarding dissection. aneurysm
--- NOTE | 2024-10-14 18:28 | EVENTNT_ITS ---
Documentation for date of: 10/14/24 Event Note Event Note: Received call from [facility] donor relations coordinator. [facility] received patient's information and after reviewing CTA chest/chart, the request was denied.
--- NOTE | 2024-10-14 18:28 | PD.RESEVENT ---
Documentation for date of: 10/14/24 Event Note Event Note: Received call from [facility] seo coordinator. [facility] received patient's information and after reviewing CTA chest/chart, the request was denied.
[2024-10-14] MEDS: ATORVASTATIN CALCIUM 20 MG TABLET 40 MG PO (21:03)
[2024-10-14] MEDS: METOPROLOL SUCCINATE XL 25 MG TABCR 75 MG PO (21:04)
[2024-10-14] MEDS: AZITHROMYCIN INJ 500 MG in SODIUM CHLORIDE 0.9% 250 ML 250 ML 250 MG IV (21:05)
[2024-10-14] MEDS: INSULIN LISPRO (AdmeLOG) 1 UNIT/0.01 ML UNIT SC (21:11)
[2024-10-14] MEDS: cefTRIAXone/D5w 1gm IV premix 50 ML IV (22:54)
[2024-10-15] VITALS (22 sets, daily range): BP systolic 114–139; BP diastolic 58–91; PULSE 72–92; RESP 17–30; TEMP 36.2–37.6; O2SAT 86–96; BMI 14.0; BMI 25.0
[2024-10-15] MEDS: ALBUTEROL/IPRATROPIUM (Duoneb) RT SOL 3 ML NEBU INH ×5 (00:10→22:30)
[2024-10-15] MEDS: LEVOTHYROXINE SODIUM 25 MCG TABLET 50 MCG PO (05:06)
[2024-10-15] MEDS: DILTIAZEM 30 MG TABLET PO ×3 (05:07→21:40)
[2024-10-15 06:06] LABS: Basophils % (Auto) 0 % (0-2.5); Eosinophils # (Auto) 0.4 Thou/mm3 (0.0-0.5); Eosinophils % (Auto) 4 % (0-10); Hematocrit 31.5 % (41.0-53.0); Hemoglobin 10.4 g/dL (13.5-16.0); Immature Granulocytes % (Auto) 1 % (0-0); Immature Granulocytes Auto 0.09 Thou/mm3 (0.00-0.00); Lymphocytes # (Auto) 0.8 Thou/mm3 (1.0-4.8); Lymphocytes % (Auto) 7 % (10-50); Mean Corpuscular Hemoglobin 30.2 pg (25.0-35.0); Mean Corpuscular Volume 92 fL (80-100); Monocytes # (Auto) 1.3 Thou/mm3 (0.0-0.8); Monocytes % (Auto) 11 % (0-12); Neutrophils # (Auto) 9.4 Thou/mm3 (1.8-7.7); Neutrophils % (Auto) 78 % (37-80); Nucleated Red Blood Cell % 0 /100 WBC (0); Platelet Count 160 Thou/mm3 (140-440); RDW Standard Deviation 45.9 fL (35.1-43.9); Red Blood Count 3.44 Miln/mm3 (4.50-5.90)
[2024-10-15 07:01] LABS: Alanine Aminotransferase 16 U/L (10-49); Albumin, Serum 3.6 gm/dL (3.4-4.8); Albumin/Globulin Ratio 1.4 (1.2-2.2); Alkaline Phosphatase 66 U/L (46-116); Anion Gap 9 (7-16); Aspartate Amino Transferase 23 U/L (0-34); BUN/Creatinine Ratio 26 Ratio (12-20); Bilirubin,Total 0.6 mg/dL (0.3-1.2); Blood Urea Nitrogen 23 mg/dL (9-23); Calcium 8.5 mg/dL (8.3-10.6); Calcium (Corrected) 8.8 mg/dL (8.5-10.1); Carbon Dioxide 23.2 mMol/L (20.0-31.0); Chloride 109 mMol/L (98-107); Creatinine (Component) 0.9 mg/dL (0.6-1.3); Estimated Creatinine Clearance 66.5 mL/min (>60); Globulin 2.6 gm/dL (2.3-3.5); Glucose 130 mg/dL (74-106); Osmolality,Calculated 286 (275-295); Phosphorous 2.5 mg/dL (2.4-5.1); Potassium 3.8 mMol/L (3.4-5.1); Sodium 141 mMol/L (136-145); Total Protein 6.2 gm/dL (5.7-8.2); eGFR > 60 See Note
[2024-10-15] MEDS: ASPIRIN EC 81 MG TABEC PO (08:24)
[2024-10-15] MEDS: APIXABAN 2.5 MG TABLET 5 MG PO ×2 (08:24→20:07)
[2024-10-15] MEDS: FAMOTIDINE 20 MG TABLET PO (08:24)
--- NOTE | 2024-10-15 09:05 | CHAP ---
Visited with patient and had prayer.
--- NOTE | 2024-10-15 09:54 | PC.CC ---
Addendum entered by Milena Burgos RN 10/15/24 17:13: Error in charting- wrong note at 1707. Please disregard Addendum entered by Milena Burgos RN 10/15/24 17:08: 1707 I received fax for insurance auth from Yuliana with [email or web address]. Auth number is [id number]. Addendum entered by Milena Burgos RN 10/15/24 13:54: 1350 received call from [facility], spoke to Karen. She stated pt has been accepted at [facility] Jerad Gonzalez. Accepted by Dr. Stuart Valadez. Now waiting for bed. She also stated to call [facility] Jerad Gonzalez pt placement at [phone]. Option 2 and then option 2 from now for bed status. Addendum entered by Milena Burgos RN 10/15/24 13:49: [address] Stuart Valadez at [facility] wants to speak with Dr. Canchola. Conference call connected. He stated he can accept the pt. but waiting for bed will take time. He stated pt doesn't need emergent surgery. But if pt gets better with pneumonia and ready to be discharged, pt can be discharged and he can follow the pt as outpatient. His office number is [phone]. Addendum entered by Milena Burgos RN 10/15/24 10:30: 1030 clinicals sent to [facility]. Addendum entered by Milena Burgos RN 10/15/24 10:24: 1013 Called [facility], spoke to Antonio and initiated the transfer. She stated to fax the clinicals. Original Note: [id number] Page and informed the outcomes so far. Dr. Page stated to continue looking for the transfer. Wrap up [place]-declined it can be treated as outpatient. [facility]-declined no services available. [facility]-pt need tertiary level transfer. [facility]-no intervention needed. [id number] Elzbieta's email handoff At the end of the day patient was declined by [facility] with Dr. Kang stating patient does not need intervention. I provided the information to Dr. Canchola.
--- NOTE | 2024-10-15 10:52 | CHAP ---
Patient was visited by a Spiritual Care Volunteer on 10/15/2019 between 0900 and 0923 and received comfort, encouragement and/or prayer.
--- NOTE | 2024-10-15 13:54 | ESPR_ITS ---
<Statement entered by Roxana Cantor MD - 10/15/24 16:16> I discussed with and supervised my co-resident involved in the care of this patient. I agree with the assessment and plan as documented above. Patient seen and examined at bedside. He is awake, alert, and feels bright today. No acute complaints. Remains on HFNC. Explained goal of oxygen for discharge is <5L. No chest pain. BP stable. Will continue IV antibitoics for patient's pneumonia and good blood pressure control for the aortic dissection. Roxana Cantor MD PGY-3 Documentation for date of: 10/15/24 Subjective Subjective Interval history: Patient seen and examined at bedside. Eating comfortably, mild shortness of breath after speaking, no fever, adequate appetite. Major complaints except for constipation. Will start bowel regimen today. Remains on high flow nasal cannula at 60% FiO2, 36L, 91% O2. Continue to wean oxygen. Urine cultures are still pending will continue patient on ceftriaxone and azithromycin for treatment of pneumonia. Spoke with cardiothoracic surgeon Dr. Tu Valadez from [facility] today. Stated that he would be willing to see patient in clinic at [facility] location if patient is willing to travel. Will update the family and provide information to follow up. Dr. Valadez clinic number: [phone] Exam Vital Signs Temp Pulse Resp BP Pulse Ox O2 Del Method O2 Flow Rate 97.2 F 80 24 H 139/78 H 95 High Flow Nasal Cannula 36 10/15/24 12:00 10/15/24 12:15 10/15/24 12:15 10/15/24 12:00 10/15/24 12:15 10/15/24 12:00 10/15/24 12:15 FiO2 60 10/15/24 12:15 Narrative Exam General: Sitting comfortably in bed. No acute distress, cooperative Eyes: Pupils are equal and reactive to light bilaterally HENT: Atraumatic, normocephalic. No JVD noted. Mucosa moist. Cardiovascular: Normal S1 and S2. Regular rate and rhythm. Respiratory: Mild end expiratory wheezing b/L, on 36 L HFNC Abdomen: Soft, nontender, not distended, normal bowel sounds. Skin: Warm to touch, dry, no rashes noted, small bruises noted throughout extremities Musculoskeletal: No gross injuries. Able to move all 4 extremities. Neuro: Grossly intact Psych: Normal affect and mood Objective Labs 10/15/24 05:10 10/15/24 05:10 Labs: Laboratory Results - last 24 hr 10/15/24 05:10 WBC 12.0 H RBC 3.44 L Hgb 10.4 L Hct 31.5 L MCV 92 MCH 30.2 MCHC 33.0 RDW Std Deviation 45.9 H Plt Count 160 Neut % (Auto) 78 Lymph % (Auto) 7 L [place] % (Auto) 11 Eos % (Auto) 4 Baso % (Auto) 0 Neut # (Auto) 9.4 H Lymph # (Auto) 0.8 L [place] # (Auto) 1.3 H Eos # (Auto) 0.4 Baso # (Auto) 0.0 Immature Gran # (Auto) 0.09 H Absolute Nucleated RBC 0.00 Immature Gran % 1 H Nucleated RBC % 0 Sodium 141 Potassium 3.8 Chloride 109 H Carbon Dioxide 23.2 Anion Gap 9 BUN 23 Creatinine 0.9 Estim Creat Clear Calc 66.5 eGFR > 60 BUN/Creatinine Ratio 26 H Glucose 130 H Calculated Osmolality 286 Calcium 8.5 Corrected Calcium 8.8 Phosphorus 2.5 Magnesium 2.0 Total Bilirubin 0.6 AST 23 ALT 16 Alkaline Phosphatase 66 Total Protein 6.2 Albumin 3.6 Globulin 2.6 Albumin/Globulin Ratio 1.4 Quality Measures Quality Measures none Advance care planning discussed with:: patient Assessment & Plan Assessment Current Active Medications: Generic Name Dose Route Start Last Admin Trade Name Freq PRN Reason Stop Dose Admin Acetaminophen 650 mg 10/11/24 23:24 Acetaminophen 325 Mg Tablet PO 11/10/24 23:23 Q6H PRN PAIN SCALE 1-3 (mild Acetaminophen 650 mg 10/11/24 23:24 Acetaminophen 325 Mg Tablet PO 11/10/24 23:23 Q6H PRN Fever >100 Albuterol/Ipratropium 3 ml 10/12/24 01:00 10/15/24 12:13 Albuterol/Ipratropium (Duoneb) Rt Yesenia 3 Ml Nebu INH 11/11/24 00:59 3 ml Q6HRRT TEREAS Administration Apixaban 5 mg 10/11/24 23:45 10/15/24 08:24 Apixaban 2.5 Mg Tablet PO 11/10/24 23:44 5 mg BID TERESA Administration Aspirin 81 mg 10/12/24 09:00 10/15/24 08:24 Aspirin Ec 81 Mg Tabec PO 11/11/24 08:59 81 mg QDAY TERESA Administration Atorvastatin Calcium 40 mg 10/12/24 21:00 10/14/24 21:03 Atorvastatin Calcium 20 Mg Tablet PO 11/11/24 20:59 40 mg HS TERESA Administration Dextrose 25 ml 10/11/24 23:36 Dextrose 50%-Water Inj 50 Ml Syringe IV 11/10/24 23:35 Q15MIN PRN BG 50-70 responsive npo pt Dextrose 50 ml 10/11/24 23:36 Dextrose 50%-Water Inj 50 Ml Syringe IV 11/10/24 23:35 Q15MIN PRN BG <50 OR BG <70 & pt unresponsive Diltiazem HCl 30 mg 10/11/24 23:45 10/15/24 05:07 Diltiazem 30 Mg Tablet PO 11/10/24 23:44 30 mg TID TERESA Administration Famotidine 20 mg 10/12/24 09:00 10/15/24 08:24 Famotidine 20 Mg Tablet PO 11/11/24 08:59 20 mg QDAY TERESA Administration Glucagon 1 mg 10/11/24 23:36 Glucagon Inj 1 Mg Vial IM Q15MIN PRN BG <70, and no IV access Ceftriaxone Sodium/Dextrose 50 mls @ 100 mls/hr 10/12/24 21:00 10/14/24 22:54 Rocephin/D5w 1gm Iv Premix IV 10/19/24 20:59 100 mls/hr HS TERESA Administration Azithromycin 500 mg/ Sodium 250 mls @ 250 mls/hr 10/12/24 21:00 10/14/24 21:05 Chloride IV 10/19/24 20:59 250 mls/hr HS TERESA Administration Insulin Human Lispro 0 unit 10/12/24 07:30 10/15/24 07:59 Insulin Lispro (Admelog) 1 Unit/0.01 Ml Unit SC 11/11/24 07:29 Not Given ACHS [facility] Protocol Levothyroxine Sodium 50 mcg 10/12/24 06:00 10/15/24 05:06 Levothyroxine Sodium 25 Mcg Tablet PO 11/11/24 05:59 50 mcg ACBR TERESA Administration Metoprolol Succinate 75 mg 10/13/24 21:00 10/14/24 21:04 Metoprolol Succinate Xl 25 Mg Tabcr PO 11/12/24 20:59 75 mg HS TERESA Administration Ondansetron HCl 4 mg 10/11/24 23:24 Ondansetron Inj 2 Mg/Ml Inj 2 Ml IV 11/10/24 23:23 Q6H PRN NAUSEA OR VOMITING Protocol Sennosides 1 tab 10/15/24 12:04 Senna Tablet PO 11/14/24 12:03 QDAY PRN CONSTIPATION Protocol Plan Rasheed Mayo is 79-year-old male PMHx of AAA 10 years ago s/p stenting, CAD with stents, A-fib, HTN, HLD, hypothyroidism, T2DM and GERD, presenting with fever, cough, SOB. Admitted for sepsis 2/2 pneumonia. #AHRF 2/2 CAP #Sepsis 2/2 PNA Presenting with scott sputum cough, fever, and SOB x 3 days. Met sepsis with 2/3 SIRS criteria: tachypnea and leukocytosis, pneumonia likely source, endorgan damage (HOWARD). CXR showed bibasilar pneumonia. Basilar lung crackles and 1+ bilateral lower extremity edema on exam. BNP 206. PSI index 81 indicates class III risk. CURB-65 of 2 indicates Moderate risk. ? Continue CEFTRIAXONE 1 g daily (10/11- ? Continue AZITHROMYCIN 500 daily (10/11- ? Continue DuoNebs q.6h. PRN ? Chest physio therapy ? Pending echocardiogram ? sputum stain positive for GPC, GNR #Type B thoracic aortic dissection CT chest on 10/13 showed [place] type B thoracic aortic dissection beginning distal to the left subclavian artery with aneurysmal dilatation ascending thoracic aorta and upper abdominal aorta Unsure at this time of dissection is new or old. Patient is denying any chest pain or back pain. -Test Equipment Mechanic Dr. Valerio consulted -Recommendations to keep blood pressure less than 120/80 and heart rate around 70. -Continue home metoprolol dose 75 mg HS -spoke with cardiothoracic surgeon Dr. Tu Valadez from [facility] today. Stated that he would be willing to see patient in clinic at [facility] location if patient is willing to travel. #Prerenal HOWARD-resolved Likely in settings of dehydration, sepsis, CHF exacerbation. CR 1.4 with baseline around 1.2. ? Renally dose meds, avoid overdiuresis and NEPHROTOXINS ? Daily CMP -monitor IOs #Hx A-fib, rate controlled #Hx of AAA s/p stent #Hx of CAD s/p stent Patient follows up with cardiology for annual screening in [place]. Last visit last week. Denies chest pain or palpitations. Troponin normal. [id number] 5 point outweighs risk of bleed with HAS-BLED of 3. ? Continued home ASPIRIN 81 mg daily ? Continued home ELIQUIS 5 mg BID ? Continue home DILTIAZEM 30 mg TID #Hx HTN #Hx HLD, #Hx hypothyroidism Home meds HCTZ 12.5 daily, LISINOPRIL 40 BID, METOPROLOL 50 mg daily, ROSUVASTATIN 40 mg. BP 145/78. ? Continue ATORVASTATIN 40 mg HS ? Holding HCTZ, LISINOPRIL in settings of HOWARD ? resume METOPROLOL 75 mg HS #History of type 2 diabetes On admission initial glucose 140. Last A1c 6.0 on 06/11/2024. Patient takes metformin 500 daily, Tradjenta 5 mg daily for diabetes at home. A1c 10/12/2024 5.8 -Held home medications -Bedside blood glucose checks ACHS -Insulin lispro sliding scale -Carb consistent low diet #Mild hypernatremia-resolved Sodium 146. Likely dehydration. ? Encourage oral fluids ? Daily CMP #GERD ? Continue home FAMOTIDINE 40 mg daily Health maintenance Diet: CHO consistent GI prophylaxis: LORATADINE DVT prophylaxis: ELIQUIS Antibiotics: CEFTRIAXONE, AZITHROMYCIN CODE STATUS: Full code Disposition: Treating sepsis 2/2 pneumonia and aortic dissection The patient's management plan was discussed with my attending physician Dr. Hoffman and senior Dr. Cantor. Martha Canchola, PGY-1 Attending Provider Attestation/Addendum Amy Alexis, DO, attest that I was physically present for the schaffer portions of the service and evaluated the patient with the resident and I reviewed and discussed the case with the resident and agree with the resident's findings and plans of care as documented above Patient seen and evaluated this AM. He states that he is feeling better today. He remains on HFNC with FIO2 of 60%. Will continue to titrate down as tolerated. Pt denies any active chest pain or back pain. Transfer has been unsuccesful and recommended by local facilities to follow up outpatient regarding aortic dissection. Patient has been hemodynamically stable, goal HR <60 and BP<120/80. Patient was able to work with physical therapy and take a few steps. Will continue with medical management.
--- NOTE | 2024-10-15 14:14 | PC.SS ---
Rounding note: patient is pending HLOC transfer, patient on high flow of O2.
[2024-10-15 14:48] LABS: Cocci Serology, IgM Negative (Negative)
[2024-10-15] MEDS: INSULIN LISPRO (AdmeLOG) 1 UNIT/0.01 ML UNIT SC (17:37)
[2024-10-15] MEDS: BUDESONIDE RT 0.5 MG/2 ML NEBU INH (18:49)
[2024-10-15] MEDS: SENNA TABLET 1 TAB PO (20:06)
[2024-10-15] MEDS: ATORVASTATIN CALCIUM 20 MG TABLET 40 MG PO (20:06)
[2024-10-15] MEDS: AZITHROMYCIN INJ 500 MG in SODIUM CHLORIDE 0.9% 250 ML 250 ML 250 MG IV (20:07)
[2024-10-15] MEDS: METOPROLOL SUCCINATE XL 25 MG TABCR 75 MG PO (20:07)
[2024-10-15] MEDS: cefTRIAXone/D5w 1gm IV premix 50 ML IV (21:40)
[2024-10-16] VITALS (20 sets, daily range): BP systolic 102–132; BP diastolic 62–71; PULSE 71–98; RESP 20–32; TEMP 36.4–37.2; O2SAT 90–95; BMI 14.0
[2024-10-16] MEDS: ALBUTEROL/IPRATROPIUM (Duoneb) RT SOL 3 ML NEBU INH ×6 (02:42→22:22)
[2024-10-16] MEDS: DILTIAZEM 30 MG TABLET PO ×3 (05:32→21:03)
[2024-10-16] MEDS: LEVOTHYROXINE SODIUM 25 MCG TABLET 50 MCG PO (05:32)
--- NOTE | 2024-10-16 08:12 | PD.IMPROG ---
Documentation for date of: 10/16/24 Subjective Subjective Interval history: continue treatment Out pt evaluation for thoracic aortic aneurysm chronic dissection as per [facility] cardiac surgery Exam Vital Signs Temp Pulse Resp BP Pulse Ox O2 Del Method O2 Flow Rate 98.8 F 74 24 H 130/66 91 L High Flow Nasal Cannula 35 10/16/24 08:00 10/16/24 08:00 10/16/24 08:00 10/16/24 08:00 10/16/24 08:00 10/16/24 08:00 10/16/24 08:00 FiO2 60 10/16/24 08:00 Objective Labs 10/15/24 05:10 10/15/24 05:10 Labs: Laboratory Results - last 24 hr 10/15/24 05:10 Coccidioides IgM Ab Negative Assessment & Plan A&P Narrative [place] type B thoracic aortic dissection beginning distal to the left subclavian artery with aneurysmal dilatation ascending thoracic aorta and upper abdominal aorta noted Type B dissection is typically managed with medical observation however if impending rupture is persent may need surgical / endovascular intervention recommend transfer to a facility with thoracic surgery available for further evaluation Time Spent With Patient Time: Total time spent is greater than 50% in coordination of care (as documented) at patient's floor/unit and/or counseling patient:
[2024-10-16] MEDS: APIXABAN 2.5 MG TABLET 5 MG PO ×2 (08:33→20:46)
[2024-10-16] MEDS: ASPIRIN EC 81 MG TABEC PO (08:34)
[2024-10-16] MEDS: FAMOTIDINE 20 MG TABLET PO (08:34)
[2024-10-16 09:46] LABS: Basophils % (Auto) 0 % (0-2.5); Eosinophils # (Auto) 0.3 Thou/mm3 (0.0-0.5); Eosinophils % (Auto) 3 % (0-10); Hematocrit 33.2 % (41.0-53.0); Hemoglobin 10.9 g/dL (13.5-16.0); Immature Granulocytes % (Auto) 1 % (0-0); Immature Granulocytes Auto 0.11 Thou/mm3 (0.00-0.00); Lymphocytes # (Auto) 0.8 Thou/mm3 (1.0-4.8); Lymphocytes % (Auto) 8 % (10-50); Mean Corpuscular HGB Conc 32.8 g/dl (31.0-37.0); Mean Corpuscular Hemoglobin 30.2 pg (25.0-35.0); Mean Corpuscular Volume 92 fL (80-100); Monocytes # (Auto) 1.1 Thou/mm3 (0.0-0.8); Monocytes % (Auto) 10 % (0-12); Neutrophils # (Auto) 8.6 Thou/mm3 (1.8-7.7); Neutrophils % (Auto) 78 % (37-80); Nucleated Red Blood Cell % 0 /100 WBC (0); Platelet Count 172 Thou/mm3 (140-440); RDW Standard Deviation 45.8 fL (35.1-43.9); Red Blood Count 3.61 Miln/mm3 (4.50-5.90)
[2024-10-16 10:08] LABS: Alanine Aminotransferase 27 U/L (10-49); Albumin, Serum 3.8 gm/dL (3.4-4.8); Albumin/Globulin Ratio 1.3 (1.2-2.2); Alkaline Phosphatase 78 U/L (46-116); Anion Gap 10 (7-16); Aspartate Amino Transferase 44 U/L (0-34); BUN/Creatinine Ratio 22 Ratio (12-20); Bilirubin,Total 0.7 mg/dL (0.3-1.2); Blood Urea Nitrogen 20 mg/dL (9-23); Calcium (Corrected) 9.2 mg/dL (8.5-10.1); Carbon Dioxide 23.5 mMol/L (20.0-31.0); Chloride 112 mMol/L (98-107); Creatinine (Component) 0.9 mg/dL (0.6-1.3); Estimated Creatinine Clearance 66.5 mL/min (>60); Globulin 2.9 gm/dL (2.3-3.5); Glucose 178 mg/dL (74-106); Osmolality,Calculated 295 (275-295); Potassium 3.9 mMol/L (3.4-5.1); Sodium 145 mMol/L (136-145); Total Protein 6.7 gm/dL (5.7-8.2); eGFR > 60 See Note
[2024-10-16] MEDS: BUDESONIDE RT 0.5 MG/2 ML NEBU INH ×2 (11:05→18:36)
--- NOTE | 2024-10-16 12:00 | PC.NURSE ---
aasumed care of patient . pt alert and oirented gcs 15. at bedside. no signs of distress noted. call light within reach.
--- NOTE | 2024-10-16 12:00 | PC.NURSE ---
CALLED DR DELEON INFORMED PATIENT HAD A RUN OF 4 PVC'S. ACKNOWLEDGED.
[2024-10-16 12:27] LABS: Cocci Serology, IgG Negative (Negative)
--- NOTE | 2024-10-16 13:19 | ESPR_ITS ---
<Statement entered by Roxana Cantor MD - 10/16/24 13:46> I discussed with and supervised my co-resident involved in the care of this patient. I agree with the assessment and plan as documented above. Remains on HFNC at 35L FiO2 60%. Leukocytosis improving. Sputum culture grew E Coli. Per famlily, patient was smoking on Sunday and had aspiration event, so likely source of infection. Will continue IV antibiotics. For his aortic dissection, will increase metoprolol for better blood pressure and heart rate control. Roxana Cantor MD PGY-3 Documentation for date of: 10/16/24 Subjective Subjective Interval history: Patient seen and examined at bedside. Patient remains on high flow nasal cannula saturating 88% on 85, 60% FiO2. Have been unable to titrate O2. Sputum cultures resulted positive for E. coli. Will continue ceftriaxone and azithromycin for aspiration pneumonia. Per at bedside, patient smokes marijuana 1-2 days/week and had aspiration event 1 day before admission. Emesis was due to smoking. Patient was counseled on abstaining from smoking at this time due to high aspiration risk and extensive underlying lung disease. Leukocytosis is improving. Increase metoprolol to 100 mg daily for tighter blood pressure control in setting of patient's aortic dissection. Family agreed to see eyeglass cutter in [facility] for evaluation of aortic dissection. Continue to monitor and titrate O2. Exam Vital Signs Temp Pulse Resp BP Pulse Ox O2 Del Method O2 Flow Rate 97.6 F 87 32 H 122/68 91 L High Flow Nasal Cannula 35 10/16/24 12:00 10/16/24 12:10/16/24 12:10/16/24 12:10/16/24 12:10/16/24 12:10/16/24 12:00 FiO2 60 10/16/24 12:00 Narrative Exam General: Sitting comfortably in bed. No acute distress, cooperative Eyes: Pupils are equal and reactive to light bilaterally HENT: Atraumatic, normocephalic. No JVD noted. Mucosa moist. Cardiovascular: Normal S1 and S2. Regular rate and rhythm. Respiratory: Mild end expiratory wheezing b/L, on 35 L HFNC Abdomen: Soft, nontender, not distended, normal bowel sounds. Skin: Warm to touch, dry, no rashes noted, small bruises noted throughout extremities Musculoskeletal: No gross injuries. Able to move all 4 extremities. Neuro: Grossly intact Psych: Normal affect and mood Objective Labs 10/17/24 05:05 10/17/24 05:05 Labs: Laboratory Results - last 24 hr 10/15/24 10/16/24 05:10 08:30 WBC 11.0 H RBC 3.61 L Hgb 10.9 L Hct 33.2 L MCV 92 MCH 30.2 MCHC 32.8 RDW Std Deviation 45.8 H Plt Count 172 Neut % (Auto) 78 Lymph % (Auto) 8 L [place] % (Auto) 10 Eos % (Auto) 3 Baso % (Auto) 0 Neut # (Auto) 8.6 H Lymph # (Auto) 0.8 L [place] # (Auto) 1.1 H Eos # (Auto) 0.3 Baso # (Auto) 0.0 Immature Gran # (Auto) 0.11 H Absolute Nucleated RBC 0.00 Immature Gran % 1 H Nucleated RBC % 0 Sodium 145 Potassium 3.9 Chloride 112 H Carbon Dioxide 23.5 Anion Gap 10 BUN 20 Creatinine 0.9 Estim Creat Clear Calc 66.5 eGFR > 60 BUN/Creatinine Ratio 22 H Glucose 178 H Calculated Osmolality 295 Calcium 9.0 Corrected Calcium 9.2 Total Bilirubin 0.7 AST 44 H ALT 27 Alkaline Phosphatase 78 Total Protein 6.7 Albumin 3.8 Globulin 2.9 Albumin/Globulin Ratio 1.3 Coccidioides IgG Ab Negative Coccidioides IgM Ab Negative Quality Measures Quality Measures none Advance care planning discussed with:: patient Assessment & Plan Assessment Current Active Medications: Generic Name Dose Route Start Last Admin Trade Name Freq PRN Reason Stop Dose Admin Acetaminophen 650 mg 10/11/24 23:24 Acetaminophen 325 Mg Tablet PO 11/10/24 23:23 Q6H PRN PAIN SCALE 1-3 (mild Acetaminophen 650 mg 10/11/24 23:24 Acetaminophen 325 Mg Tablet PO 11/10/24 23:23 Q6H PRN Fever >100 Albuterol/Ipratropium 3 ml 10/15/24 23:00 10/16/24 11:05 Albuterol/Ipratropium (Duoneb) Rt Yesenia 3 Ml Nebu INH 11/14/24 22:59 3 ml Q4HRRT TERESA Administration Apixaban 5 mg 10/11/24 23:45 10/16/24 08:33 Apixaban 2.5 Mg Tablet PO 11/10/24 23:44 5 mg BID TERESA Administration Aspirin 81 mg 10/12/24 09:00 10/16/24 08:34 Aspirin Ec 81 Mg Tabec PO 11/11/24 08:59 81 mg QDAY TERESA Administration Atorvastatin Calcium 40 mg 10/12/24 21:00 10/15/24 20:06 Atorvastatin Calcium 20 Mg Tablet PO 11/11/24 20:59 40 mg HS TERESA Administration Budesonide 0.5 mg 10/15/24 19:00 10/16/24 11:05 Budesonide Rt 0.5 Mg/2 Ml Nebu INH 11/14/24 18:59 0.5 mg BIDRT TERESA Administration Dextrose 25 ml 10/11/24 23:36 Dextrose 50%-Water Inj 50 Ml Syringe IV 11/10/24 23:35 Q15MIN PRN BG 50-70 responsive npo pt Dextrose 50 ml 10/11/24 23:36 Dextrose 50%-Water Inj 50 Ml Syringe IV 11/10/24 23:35 Q15MIN PRN BG <50 OR BG <70 & pt unresponsive Diltiazem HCl 30 mg 10/11/24 23:45 10/16/24 05:32 Diltiazem 30 Mg Tablet PO 11/10/24 23:44 30 mg TID TERESA Administration Famotidine 20 mg 10/12/24 09:00 10/16/24 08:34 Famotidine 20 Mg Tablet PO 11/11/24 08:59 20 mg QDAY TERESA Administration Glucagon 1 mg 10/11/24 23:36 Glucagon Inj 1 Mg Vial IM Q15MIN PRN BG <70, and no IV access Ceftriaxone Sodium/Dextrose 50 mls @ 100 mls/hr 10/12/24 21:00 10/15/24 21:40 Rocephin/D5w 1gm Iv Premix IV 10/19/24 20:59 100 mls/hr HS TERESA Administration Azithromycin 500 mg/ Sodium 250 mls @ 250 mls/hr 10/12/24 21:00 10/15/24 20:07 Chloride IV 10/19/24 20:59 250 mls/hr HS TERESA Administration Insulin Human Lispro 0 unit 10/12/24 07:30 10/16/24 11:37 Insulin Lispro (Admelog) 1 Unit/0.01 Ml Unit SC 11/11/24 07:29 Not Given ACHS TERESA Protocol Levothyroxine Sodium 50 mcg 10/12/24 06:00 10/16/24 05:32 Levothyroxine Sodium 25 Mcg Tablet PO 11/11/24 05:59 50 mcg ACBR TERESA Administration Metoprolol Succinate 100 mg 10/16/24 21:00 Metoprolol Succinate Xl 25 Mg Tabcr PO 11/15/24 20:59 HS TERESA Ondansetron HCl 4 mg 10/11/24 23:24 Ondansetron Inj 2 Mg/Ml Inj 2 Ml IV 11/10/24 23:23 Q6H PRN NAUSEA OR VOMITING Protocol Sennosides 1 tab 10/15/24 12:04 10/15/24 20:06 Senna Tablet PO 11/14/24 12:03 1 tab QDAY PRN Administration CONSTIPATION Protocol Plan Rasheed Mayo is 79-year-old male PMHx of AAA 10 years ago s/p stenting, CAD with stents, A-fib, HTN, HLD, hypothyroidism, T2DM and GERD, presenting with fever, cough, SOB. Admitted for sepsis 2/2 pneumonia. #AHRF 2/2 E. coli aspiration PNA #Sepsis 2/2 E. coli aspiration PNA Presenting with scott sputum cough, fever, and SOB x 3 days. Patient had aspiration event before arrival to hospital. Per at bedside, he had been smoking marijuana, followed by episode of emesis with coughing. Met sepsis with 2/3 SIRS criteria: tachypnea and leukocytosis, pneumonia likely source, endorgan damage (HOWARD). CXR showed bibasilar pneumonia. Basilar lung crackles and 1+ bilateral lower extremity edema on exam. BNP 206. PSI index 81 indicates class III risk. CURB-65 of 2 indicates Moderate risk. Sputum culture positive for E. coli ? Continue CEFTRIAXONE 1 g daily (10/11- ? Continue AZITHROMYCIN 500 daily (10/11- ? Continue DuoNebs q.6h. PRN ? Chest physio therapy ? Pending echocardiogram ? sputum stain positive for GPC, GNR #Type B thoracic aortic dissection CT chest on 10/13 showed Thaddeus type B thoracic aortic dissection beginning distal to the left subclavian artery with aneurysmal dilatation ascending thoracic aorta and upper abdominal aorta Unsure at this time of dissection is new or old. Patient is denying any chest pain or back pain. -Event Marketing Specialist Dr. Valerio consulted -Recommendations to keep blood pressure less than 120/80 and heart rate around 70. -Increase metoprolol from 75 mg HS to 100 mg -Patient and family are willing to follow-up with cardiothoracic surgeon Dr. Tu Valadez from [facility]. (clinic number: [phone]) #Prerenal HOWARD-resolved Likely in settings of dehydration, sepsis, CHF exacerbation. CR 1.4 with baseline around 1.2. ? Renally dose meds, avoid overdiuresis and NEPHROTOXINS ? Daily CMP -monitor IOs #Hx A-fib, rate controlled #Hx of AAA s/p stent #Hx of CAD s/p stent Patient follows up with cardiology for annual screening in [place]. Last visit last week. Denies chest pain or palpitations. Troponin normal. [id number] 5 point outweighs risk of bleed with HAS-BLED of 3. ? Continued home ASPIRIN 81 mg daily ? Continued home ELIQUIS 5 mg BID ? Continue home DILTIAZEM 30 mg TID #Hx HTN #Hx HLD, #Hx hypothyroidism Home meds HCTZ 12.5 daily, LISINOPRIL 40 BID, METOPROLOL 50 mg daily, ROSUVASTATIN 40 mg. BP 145/78. ? Continue ATORVASTATIN 40 mg HS ? Holding HCTZ, LISINOPRIL in settings of HOWARD ? resume METOPROLOL 75 mg HS #History of type 2 diabetes On admission initial glucose 140. Last A1c 6.0 on 06/11/2024. Patient takes metformin 500 daily, Tradjenta 5 mg daily for diabetes at home. A1c 10/12/2024 5.8 -Held home medications -Bedside blood glucose checks ACHS -Insulin lispro sliding scale -Carb consistent low diet #Mild hypernatremia-resolved Sodium 146. Likely dehydration. ? Encourage oral fluids ? Daily CMP #GERD ? Continue home FAMOTIDINE 40 mg daily Health maintenance Diet: CHO consistent GI prophylaxis: LORATADINE DVT prophylaxis: ELIQUIS Antibiotics: CEFTRIAXONE, AZITHROMYCIN CODE STATUS: Full code Disposition: Treating sepsis 2/2 aspiration pneumonia and aortic dissection The patient's management plan was discussed with my attending physician Dr. Hoffman and senior Dr. Cantor. Martha Canchola, PGY-1 Attending Provider Attestation/Addendum Amy Alexis, DO, attest that I was physically present for the schaffer portions of the service and evaluated the patient with the resident and I reviewed and discussed the case with the resident and agree with the resident's findings and plans of care as documented above Patient seen and evaluated this AM. He remains on HFNC with flow of 30L/min and FiO2 60%. Will increase metoprolol 75mg PO HS to 100mg PO HS for better BP and HR control due to chronic dissection. Continue to titrate O2 as tolerated
[2024-10-16] MEDS: cefTRIAXone/D5w 1gm IV premix 50 ML IV (20:46)
[2024-10-16] MEDS: AZITHROMYCIN INJ 500 MG in SODIUM CHLORIDE 0.9% 250 ML 250 ML 250 MG IV (20:47)
[2024-10-16] MEDS: METOPROLOL SUCCINATE XL 25 MG TABCR 100 MG PO (20:47)
[2024-10-16] MEDS: ATORVASTATIN CALCIUM 20 MG TABLET 40 MG PO (20:47)
[2024-10-16] MEDS: INSULIN LISPRO (AdmeLOG) 1 UNIT/0.01 ML UNIT SC (20:48)
[2024-10-16] MEDS: ACETAMINOPHEN 325 MG TABLET 650 MG PO (21:50)
[2024-10-17] VITALS (16 sets, daily range): BP systolic 126–163; BP diastolic 70–92; PULSE 72–88; RESP 18–25; TEMP 36.3–37.3; O2SAT 89–95
[2024-10-17] MEDS: ALBUTEROL/IPRATROPIUM (Duoneb) RT SOL 3 ML NEBU INH ×5 (03:42→23:19)
[2024-10-17] MEDS: DILTIAZEM 30 MG TABLET PO ×3 (05:17→20:49)
[2024-10-17] MEDS: LEVOTHYROXINE SODIUM 25 MCG TABLET 50 MCG PO (05:17)
[2024-10-17 05:39] LABS: Basophils # (Auto) 0.1 Thou/mm3 (0.0-0.2); Basophils % (Auto) 1 % (0-2.5); Eosinophils # (Auto) 0.6 Thou/mm3 (0.0-0.5); Eosinophils % (Auto) 6 % (0-10); Hematocrit 31.6 % (41.0-53.0); Hemoglobin 10.2 g/dL (13.5-16.0); Immature Granulocytes % (Auto) 2 % (0-0); Immature Granulocytes Auto 0.17 Thou/mm3 (0.00-0.00); Lymphocytes % (Auto) 11 % (10-50); Mean Corpuscular HGB Conc 32.3 g/dl (31.0-37.0); Mean Corpuscular Hemoglobin 29.9 pg (25.0-35.0); Mean Corpuscular Volume 93 fL (80-100); Monocytes # (Auto) 1.1 Thou/mm3 (0.0-0.8); Monocytes % (Auto) 12 % (0-12); Neutrophils # (Auto) 6.5 Thou/mm3 (1.8-7.7); Neutrophils % (Auto) 69 % (37-80); Nucleated Red Blood Cell % 0 /100 WBC (0); Platelet Count 172 Thou/mm3 (140-440); RDW Standard Deviation 46.5 fL (35.1-43.9); Red Blood Count 3.41 Miln/mm3 (4.50-5.90); White Blood Count 9.4 Thou/mm3 (3.8-10.6)
[2024-10-17 06:16] LABS: Alanine Aminotransferase 34 U/L (10-49); Albumin, Serum 3.4 gm/dL (3.4-4.8); Albumin/Globulin Ratio 1.4 (1.2-2.2); Alkaline Phosphatase 77 U/L (46-116); Anion Gap 9 (7-16); Aspartate Amino Transferase 44 U/L (0-34); BUN/Creatinine Ratio 24 Ratio (12-20); Bilirubin,Total 0.5 mg/dL (0.3-1.2); Blood Urea Nitrogen 19 mg/dL (9-23); Calcium 8.7 mg/dL (8.3-10.6); Calcium (Corrected) 9.2 mg/dL (8.5-10.1); Carbon Dioxide 24.8 mMol/L (20.0-31.0); Chloride 110 mMol/L (98-107); Creatinine (Component) 0.8 mg/dL (0.6-1.3); Estimated Creatinine Clearance 74.8 mL/min (>60); Globulin 2.4 gm/dL (2.3-3.5); Glucose 133 mg/dL (74-106); Osmolality,Calculated 291 (275-295); Sodium 144 mMol/L (136-145); Total Protein 5.8 gm/dL (5.7-8.2); eGFR > 60 See Note
[2024-10-17] MEDS: BUDESONIDE RT 0.5 MG/2 ML NEBU INH ×2 (06:55→19:43)
--- NOTE | 2024-10-17 10:21 | PC.CM ---
Patient expressed gratitude for visit and prayer.
[2024-10-17] MEDS: ASPIRIN EC 81 MG TABEC PO (10:24)
[2024-10-17] MEDS: FAMOTIDINE 20 MG TABLET PO (10:24)
[2024-10-17] MEDS: APIXABAN 2.5 MG TABLET 5 MG PO ×2 (10:24→20:49)
--- NOTE | 2024-10-17 16:34 | ESPR_ITS ---
<Statement entered by Roxana Cantor MD - 10/17/24 18:43> I discussed with and supervised my co-resident involved in the care of this patient. I agree with the assessment and plan as documented above. Patient seen and examined at bedside. No acute complaints. Had 1 BM yesterday. Tolerating PO intake. Remains on HFNC, trying to wean. Patient completed his course of antibiotics, has been afebrile. Roxana Cantor MD PGY-3 Documentation for date of: 10/17/24 Subjective Subjective Interval history: Patient seen and examined at bedside. No acute events overnight. No major complaints. Did titrate O2 however patient desaturated to 85% on 25 L high flow NC. Increased HFNC back to 35L. Continue attempting to decrease O2 requirement. Leukocytosis improving to 9.4 today. Patient has completed course of ceftriaxone and azithromycin for E. coli pneumonia. Continue breathing treatments and PT. Continue metoprolol 100 mg daily for BP control due to aortic dissection. Exam Vital Signs Temp Pulse Resp BP Pulse Ox O2 Del Method O2 Flow Rate 97.3 F 80 18 127/70 92 L Nasal Cannula 35 10/17/24 16:00 10/17/24 16:00 10/17/24 16:00 10/17/24 16:00 10/17/24 16:00 10/17/24 16:00 10/17/24 16:00 FiO2 70 10/17/24 15:19 Narrative Exam General: Sitting comfortably in bed. No acute distress, cooperative Eyes: Pupils are equal and reactive to light bilaterally HENT: Atraumatic, normocephalic. No JVD noted. Mucosa moist. Cardiovascular: Normal S1 and S2. Regular rate and rhythm. Respiratory: Mild end expiratory wheezing b/L, on 35 L HFNC Abdomen: Soft, nontender, not distended, normal bowel sounds. Skin: Warm to touch, dry, no rashes noted, small bruises noted throughout extremities Musculoskeletal: No gross injuries. Able to move all 4 extremities. Neuro: Grossly intact Psych: Normal affect and mood Objective Labs 10/18/24 05:20 10/18/24 05:20 Labs: Laboratory Results - last 24 hr 10/17/24 05:05 WBC 9.4 RBC 3.41 L Hgb 10.2 L Hct 31.6 L MCV 93 MCH 29.9 MCHC 32.3 RDW Std Deviation 46.5 H Plt Count 172 Neut % (Auto) 69 Lymph % (Auto) 11 [place] % (Auto) 12 Eos % (Auto) 6 Baso % (Auto) 1 Neut # (Auto) 6.5 Lymph # (Auto) 1.0 [place] # (Auto) 1.1 H Eos # (Auto) 0.6 H Baso # (Auto) 0.1 Immature Gran # (Auto) 0.17 H Absolute Nucleated RBC 0.00 Immature Gran % 2 H Nucleated RBC % 0 Sodium 144 Potassium 4.0 Chloride 110 H Carbon Dioxide 24.8 Anion Gap 9 BUN 19 Creatinine 0.8 Estim Creat Clear Calc 74.8 eGFR > 60 BUN/Creatinine Ratio 24 H Glucose 133 H Calculated Osmolality 291 Calcium 8.7 Corrected Calcium 9.2 Total Bilirubin 0.5 AST 44 H ALT 34 Alkaline Phosphatase 77 Total Protein 5.8 Albumin 3.4 Globulin 2.4 Albumin/Globulin Ratio 1.4 Quality Measures Quality Measures none Advance care planning discussed with:: patient Assessment & Plan Assessment Current Active Medications: Generic Name Dose Route Start Last Admin Trade Name Freq PRN Reason Stop Dose Admin Acetaminophen 650 mg 10/11/24 23:24 10/16/24 21:50 Acetaminophen 325 Mg Tablet PO 11/10/24 23:23 650 mg Q6H PRN Administration PAIN SCALE 1-3 (mild Acetaminophen 650 mg 10/11/24 23:24 Acetaminophen 325 Mg Tablet PO 11/10/24 23:23 Q6H PRN Fever >100 Albuterol/Ipratropium 3 ml 10/15/24 23:00 10/17/24 15:19 Albuterol/Ipratropium (Duoneb) Rt Yesenia 3 Ml Nebu INH 11/14/24 22:59 3 ml Q4HRRT TERESA Administration Apixaban 5 mg 10/11/24 23:45 10/17/24 10:24 Apixaban 2.5 Mg Tablet PO 11/10/24 23:44 5 mg BID TERESA Administration Aspirin 81 mg 10/12/24 09:00 10/17/24 10:24 Aspirin Ec 81 Mg Tabec PO 11/11/24 08:59 81 mg QDAY TERESA Administration Atorvastatin Calcium 40 mg 10/12/24 21:00 10/16/24 20:47 Atorvastatin Calcium 20 Mg Tablet PO 11/11/24 20:59 40 mg HS TERESA Administration Budesonide 0.5 mg 10/15/24 19:00 10/17/24 06:55 Budesonide Rt 0.5 Mg/2 Ml Nebu INH 11/14/24 18:59 0.5 mg BIDRT TERESA Administration Dextrose 25 ml 10/11/24 23:36 Dextrose 50%-Water Inj 50 Ml Syringe IV 11/10/24 23:35 Q15MIN PRN BG 50-70 responsive npo pt Dextrose 50 ml 10/11/24 23:36 Dextrose 50%-Water Inj 50 Ml Syringe IV 11/10/24 23:35 Q15MIN PRN BG <50 OR BG <70 & pt unresponsive Diltiazem HCl 30 mg 10/11/24 23:45 10/17/24 14:29 Diltiazem 30 Mg Tablet PO 11/10/24 23:44 30 mg TID TERESA Administration Famotidine 20 mg 10/12/24 09:00 10/17/24 10:24 Famotidine 20 Mg Tablet PO 11/11/24 08:59 20 mg QDAY TERESA Administration Glucagon 1 mg 10/11/24 23:36 Glucagon Inj 1 Mg Vial IM Q15MIN PRN BG <70, and no IV access Insulin Human Lispro 0 unit 10/12/24 07:30 10/17/24 12:14 Insulin Lispro (Admelog) 1 Unit/0.01 Ml Unit SC 11/11/24 07:29 Not Given ACHS TERESA Protocol Levothyroxine Sodium 50 mcg 10/12/24 06:00 10/17/24 05:17 Levothyroxine Sodium 25 Mcg Tablet PO 11/11/24 05:59 50 mcg ACBR TERESA Administration Metoprolol Succinate 100 mg 10/16/24 21:00 10/16/24 20:47 Metoprolol Succinate Xl 25 Mg Tabcr PO 11/15/24 20:59 100 mg HS TERESA Administration Ondansetron HCl 4 mg 10/11/24 23:24 Ondansetron Inj 2 Mg/Ml Inj 2 Ml IV 11/10/24 23:23 Q6H PRN NAUSEA OR VOMITING Protocol Sennosides 1 tab 10/15/24 12:04 10/15/24 20:06 Senna Tablet PO 11/14/24 12:03 1 tab QDAY PRN Administration CONSTIPATION Protocol Plan Rasheed Mayo is 79-year-old male PMHx of AAA 10 years ago s/p stenting, CAD with stents, A-fib, HTN, HLD, hypothyroidism, T2DM and GERD, presenting with fever, cough, SOB. Admitted for sepsis 2/2 pneumonia. #AHRF 2/2 E. coli PNA #Sepsis (resolved) 2/2 E. coli PNA Presenting with scott sputum cough, fever, and SOB x 3 days. Patient had aspiration event before arrival to hospital. Per at bedside, he had been smoking marijuana, followed by episode of emesis with coughing. Met sepsis with 2/3 SIRS criteria: tachypnea and leukocytosis, pneumonia likely source, endorgan damage (HOWARD). CXR showed bibasilar pneumonia. Basilar lung crackles and 1+ bilateral lower extremity edema on exam. BNP 206. PSI index 81 indicates class III risk. CURB-65 of 2 indicates Moderate risk. Sputum culture positive for E. coli ? end CEFTRIAXONE 1 g daily (10/11-10/17) ? end AZITHROMYCIN 500 daily (10/11-10/17) ? Continue DuoNebs q.6h. PRN ? Chest physio therapy ? Pending echocardiogram #Type B thoracic aortic dissection CT chest on 10/13 showed Thaddeus type B thoracic aortic dissection beginning distal to the left subclavian artery with aneurysmal dilatation ascending thoracic aorta and upper abdominal aorta Unsure at this time of dissection is new or old. Patient is denying any chest pain or back pain. -Access Coordinator Dr. Valerio consulted -Recommendations to keep blood pressure less than 120/80 and heart rate around 70. -continue metoprolol 100 mg daily -Patient and family are willing to follow-up with cardiothoracic surgeon Dr. Tu Valadez from [facility]. (clinic number: [phone]) #Prerenal HOWARD-resolved Likely in settings of dehydration, sepsis, CHF exacerbation. CR 1.4 with baseline around 1.2. ? Renally dose meds, avoid overdiuresis and NEPHROTOXINS ? Daily CMP -monitor IOs #Hx A-fib, rate controlled #Hx of AAA s/p stent #Hx of CAD s/p stent Patient follows up with cardiology for annual screening in [place]. Last visit last week. Denies chest pain or palpitations. Troponin normal. [id number] 5 point outweighs risk of bleed with HAS-BLED of 3. ? Continued home ASPIRIN 81 mg daily ? Continued home ELIQUIS 5 mg BID ? Continue home DILTIAZEM 30 mg TID #Hx HTN #Hx HLD, #Hx hypothyroidism Home meds HCTZ 12.5 daily, LISINOPRIL 40 BID, METOPROLOL 50 mg daily, ROSUVASTATIN 40 mg. BP 145/78. ? Continue ATORVASTATIN 40 mg HS ? Holding HCTZ, LISINOPRIL in settings of HOWARD ? contiue METOPROLOL 100mg daily #History of type 2 diabetes On admission initial glucose 140. Last A1c 6.0 on 06/11/2024. Patient takes metformin 500 daily, Tradjenta 5 mg daily for diabetes at home. A1c 10/12/2024 5.8 -Held home medications -Bedside blood glucose checks ACHS -Insulin lispro sliding scale -Carb consistent low diet #Mild hypernatremia-resolved Sodium 146. Likely dehydration. ? Encourage oral fluids ? Daily CMP #GERD ? Continue home FAMOTIDINE 40 mg daily Health maintenance Diet: CHO consistent GI prophylaxis: LORATADINE DVT prophylaxis: ELIQUIS Antibiotics: CEFTRIAXONE, AZITHROMYCIN CODE STATUS: Full code Disposition: titrating oygen The patient's management plan was discussed with my attending physician Dr. Hoffman and senior Dr. Cantor. Martha Canchola, PGY-1 Attending Provider Attestation/Addendum IAmy, , attest that I was physically present for the schaffer portions of the service and evaluated the patient with the resident and I reviewed and discussed the case with the resident and agree with the resident's findings and plans of care as documented above Patient seen and evaluated this AM. He states he is feeling well. Attempted to lower flow from 30-25L/min and FiO2 of 70%. However, patient did not tolerate change. Encouraged patient to use IS and acapella. Patient was able to stand with physical therapy today. Patient has completed IV abx for community acquired pneumonia. Continue to titrate O2 as tolerated
[2024-10-17] MEDS: INSULIN LISPRO (AdmeLOG) 1 UNIT/0.01 ML UNIT SC (20:46)
[2024-10-17] MEDS: METOPROLOL SUCCINATE XL 25 MG TABCR 100 MG PO (20:48)
[2024-10-17] MEDS: ATORVASTATIN CALCIUM 20 MG TABLET 40 MG PO (20:49)
[2024-10-18] VITALS (20 sets, daily range): BP systolic 113–148; BP diastolic 67–84; PULSE 69–88; RESP 17–30; TEMP 36.2–37.1; O2SAT 87–97
[2024-10-18] MEDS: ALBUTEROL/IPRATROPIUM (Duoneb) RT SOL 3 ML NEBU INH ×6 (03:31→22:00)
[2024-10-18] MEDS: DILTIAZEM 30 MG TABLET PO (05:24)
[2024-10-18] MEDS: LEVOTHYROXINE SODIUM 25 MCG TABLET 50 MCG PO (05:24)
[2024-10-18 06:03] LABS: Basophils # (Auto) 0.1 Thou/mm3 (0.0-0.2); Basophils % (Auto) 1 % (0-2.5); Eosinophils # (Auto) 0.7 Thou/mm3 (0.0-0.5); Eosinophils % (Auto) 6 % (0-10); Hematocrit 31.5 % (41.0-53.0); Hemoglobin 10.3 g/dL (13.5-16.0); Immature Granulocytes % (Auto) 2 % (0-0); Immature Granulocytes Auto 0.17 Thou/mm3 (0.00-0.00); Lymphocytes % (Auto) 9 % (10-50); Mean Corpuscular HGB Conc 32.7 g/dl (31.0-37.0); Mean Corpuscular Volume 92 fL (80-100); Monocytes # (Auto) 1.1 Thou/mm3 (0.0-0.8); Monocytes % (Auto) 10 % (0-12); Neutrophils # (Auto) 8.2 Thou/mm3 (1.8-7.7); Neutrophils % (Auto) 73 % (37-80); Nucleated Red Blood Cell % 0 /100 WBC (0); Platelet Count 198 Thou/mm3 (140-440); RDW Standard Deviation 45.1 fL (35.1-43.9); Red Blood Count 3.43 Miln/mm3 (4.50-5.90); White Blood Count 11.1 Thou/mm3 (3.8-10.6)
[2024-10-18] MEDS: BUDESONIDE RT 0.5 MG/2 ML NEBU INH ×2 (06:28→18:29)
[2024-10-18 06:31] LABS: Alanine Aminotransferase 31 U/L (10-49); Albumin, Serum 3.4 gm/dL (3.4-4.8); Albumin/Globulin Ratio 1.4 (1.2-2.2); Alkaline Phosphatase 87 U/L (46-116); Anion Gap 8 (7-16); Aspartate Amino Transferase 37 U/L (0-34); BUN/Creatinine Ratio 23 Ratio (12-20); Bilirubin,Total 0.6 mg/dL (0.3-1.2); Blood Urea Nitrogen 16 mg/dL (9-23); Calcium 8.9 mg/dL (8.3-10.6); Calcium (Corrected) 9.4 mg/dL (8.5-10.1); Carbon Dioxide 25.6 mMol/L (20.0-31.0); Chloride 107 mMol/L (98-107); Creatinine (Component) 0.7 mg/dL (0.6-1.3); Estimated Creatinine Clearance 85.5 mL/min (>60); Globulin 2.5 gm/dL (2.3-3.5); Glucose 139 mg/dL (74-106); Osmolality,Calculated 284 (275-295); Sodium 141 mMol/L (136-145); Total Protein 5.9 gm/dL (5.7-8.2); eGFR > 60 See Note
[2024-10-18] MEDS: ASPIRIN EC 81 MG TABEC PO (08:24)
[2024-10-18] MEDS: FAMOTIDINE 20 MG TABLET PO (08:24)
[2024-10-18] MEDS: APIXABAN 2.5 MG TABLET 5 MG PO ×2 (08:26→20:48)
--- NOTE | 2024-10-18 10:32 | PD.RESPRO ---
Documentation for date of: 10/18/24 Subjective Subjective Interval history: Patient seen and examined at bedside. No major complaints today. Oxygen requirements are unchanged. Saturating 91% on 35L and 65%FiO2. He continues to work with PT with good progress. was at bedside and all concerns/questions were addressed. She saw patient's chest imaging and underlying pathology was explained. Patient has completed 5 day course antibiotics for E coli pneumonia. Increased diltiazem to 60 mg 3 times daily for tighter BP control in setting of patient's aortic dissection. Continue PT, titrate O2, breathing treatments. Exam Vital Signs Temp Pulse Resp BP Pulse Ox O2 Del Method O2 Flow Rate 97.1 F 80 30 H 148/84 H 96 High Flow Nasal Cannula 35 10/18/24 08:00 10/18/24 09:55 10/18/24 08:00 10/18/24 08:00 10/18/24 08:00 10/18/24 08:00 10/18/24 06:30 FiO2 65 10/18/24 08:00 Narrative Exam General: Sitting comfortably in bed. No acute distress, cooperative Eyes: Pupils are equal and reactive to light bilaterally HENT: Atraumatic, normocephalic. No JVD noted. Mucosa moist. Cardiovascular: Normal S1 and S2. Regular rate and rhythm. Respiratory: Mild end expiratory wheezing b/L, on 35 L HFNC Abdomen: Soft, nontender, not distended, normal bowel sounds. Skin: Warm to touch, dry, no rashes noted, small bruises noted throughout extremities Musculoskeletal: No gross injuries. Able to move all 4 extremities. Neuro: Grossly intact Psych: Normal affect and mood Objective Labs 10/19/24 05:14 10/19/24 05:14 Labs: Laboratory Results - last 24 hr 10/18/24 05:20 WBC 11.1 H RBC 3.43 L Hgb 10.3 L Hct 31.5 L MCV 92 MCH 30.0 MCHC 32.7 RDW Std Deviation 45.1 H Plt Count 198 Neut % (Auto) 73 Lymph % (Auto) 9 L [place] % (Auto) 10 Eos % (Auto) 6 Baso % (Auto) 1 Neut # (Auto) 8.2 H Lymph # (Auto) 1.0 [place] # (Auto) 1.1 H Eos # (Auto) 0.7 H Baso # (Auto) 0.1 Immature Gran # (Auto) 0.17 H Absolute Nucleated RBC 0.00 Immature Gran % 2 H Nucleated RBC % 0 Sodium 141 Potassium 4.0 Chloride 107 Carbon Dioxide 25.6 Anion Gap 8 BUN 16 Creatinine 0.7 Estim Creat Clear Calc 85.5 eGFR > 60 BUN/Creatinine Ratio 23 H Glucose 139 H Calculated Osmolality 284 Calcium 8.9 Corrected Calcium 9.4 Total Bilirubin 0.6 AST 37 H ALT 31 Alkaline Phosphatase 87 Total Protein 5.9 Albumin 3.4 Globulin 2.5 Albumin/Globulin Ratio 1.4 Quality Measures Quality Measures none Advance care planning discussed with:: patient Assessment & Plan Assessment Current Active Medications: Generic Name Dose Route Start Last Admin Trade Name Freq PRN Reason Stop Dose Admin Acetaminophen 650 mg 10/11/24 23:24 10/16/24 21:50 Acetaminophen 325 Mg Tablet PO 11/10/24 23:23 650 mg Q6H PRN Administration PAIN SCALE 1-3 (mild Acetaminophen 650 mg 10/11/24 23:24 Acetaminophen 325 Mg Tablet PO 11/10/24 23:23 Q6H PRN Fever >100 Albuterol/Ipratropium 3 ml 10/15/24 23:00 10/18/24 06:28 Albuterol/Ipratropium (Duoneb) Rt Yesenia 3 Ml Nebu INH 11/14/24 22:59 3 ml Q4HRRT TERESA Administration Apixaban 5 mg 10/11/24 23:45 10/18/24 08:26 Apixaban 2.5 Mg Tablet PO 11/10/24 23:44 5 mg BID TERESA Administration Aspirin 81 mg 10/12/24 09:00 10/18/24 08:24 Aspirin Ec 81 Mg Tabec PO 11/11/24 08:59 81 mg QDAY TERESA Administration Atorvastatin Calcium 40 mg 10/12/24 21:00 10/17/24 20:49 Atorvastatin Calcium 20 Mg Tablet PO 11/11/24 20:59 40 mg HS TERESA Administration Budesonide 0.5 mg 10/15/24 19:00 10/18/24 06:28 Budesonide Rt 0.5 Mg/2 Ml Nebu INH 11/14/24 18:59 0.5 mg BIDRT TERESA Administration Dextrose 25 ml 10/11/24 23:36 Dextrose 50%-Water Inj 50 Ml Syringe IV 11/10/24 23:35 Q15MIN PRN BG 50-70 responsive npo pt Dextrose 50 ml 10/11/24 23:36 Dextrose 50%-Water Inj 50 Ml Syringe IV 11/10/24 23:35 Q15MIN PRN BG <50 OR BG <70 & pt unresponsive Diltiazem HCl 30 mg 10/11/24 23:45 10/18/24 05:24 Diltiazem 30 Mg Tablet PO 11/10/24 23:44 30 mg TID TERESA Administration Famotidine 20 mg 10/12/24 09:00 10/18/24 08:24 Famotidine 20 Mg Tablet PO 11/11/24 08:59 20 mg QDAY TERESA Administration Glucagon 1 mg 10/11/24 23:36 Glucagon Inj 1 Mg Vial IM Q15MIN PRN BG <70, and no IV access Insulin Human Lispro 0 unit 10/12/24 07:30 10/18/24 09:55 Insulin Lispro (Admelog) 1 Unit/0.01 Ml Unit SC 11/11/24 07:29 Not Given ACHS TERESA Protocol Levothyroxine Sodium 50 mcg 10/12/24 06:00 10/18/24 05:24 Levothyroxine Sodium 25 Mcg Tablet PO 11/11/24 05:59 50 mcg ACBR TERESA Administration Metoprolol Succinate 100 mg 10/16/24 21:00 10/17/24 20:48 Metoprolol Succinate Xl 25 Mg Tabcr PO 11/15/24 20:59 100 mg HS TERESA Administration Ondansetron HCl 4 mg 10/11/24 23:24 Ondansetron Inj 2 Mg/Ml Inj 2 Ml IV 11/10/24 23:23 Q6H PRN NAUSEA OR VOMITING Protocol Sennosides 1 tab 10/15/24 12:04 10/15/24 20:06 Senna Tablet PO 11/14/24 12:03 1 tab QDAY PRN Administration CONSTIPATION Protocol Plan Rasheed Mayo is 79-year-old male PMHx of AAA 10 years ago s/p stenting, CAD with stents, A-fib, HTN, HLD, hypothyroidism, T2DM and GERD, presenting with fever, cough, SOB. Admitted for sepsis 2/2 pneumonia. #AHRF 2/2 E. coli PNA #Sepsis (resolved) 2/2 E. coli PNA Presenting with scott sputum cough, fever, and SOB x 3 days. Patient had aspiration event before arrival to hospital. Per at bedside, he had been smoking marijuana, followed by episode of emesis with coughing. Met sepsis with 2/3 SIRS criteria: tachypnea and leukocytosis, pneumonia likely source, endorgan damage (HOWARD). CXR showed bibasilar pneumonia. Basilar lung crackles and 1+ bilateral lower extremity edema on exam. BNP 206. PSI index 81 indicates class III risk. CURB-65 of 2 indicates Moderate risk. Sputum culture positive for E. coli ? end CEFTRIAXONE 1 g daily (10/11-10/17) ? end AZITHROMYCIN 500 daily (10/11-10/17) ? Continue DuoNebs q.6h. PRN ? Chest physio therapy ? Pending echocardiogram #Type B thoracic aortic dissection CT chest on 10/13 showed Thaddeus type B thoracic aortic dissection beginning distal to the left subclavian artery with aneurysmal dilatation ascending thoracic aorta and upper abdominal aorta Unsure at this time of dissection is new or old. Patient is denying any chest pain or back pain. -Home Office Claims Examiner Dr. Valerio consulted -Recommendations to keep blood pressure less than 120/80 and heart rate around 70. -continue metoprolol 100 mg daily -Increase diltiazem to 60 mg 3 times daily -Patient and family are willing to follow-up with cardiothoracic surgeon Dr. Tu Valadez from [facility]. (clinic number: [phone]) #Prerenal HOWARD-resolved Likely in settings of dehydration, sepsis, CHF exacerbation. CR 1.4 with baseline around 1.2. ? Renally dose meds, avoid overdiuresis and NEPHROTOXINS ? Daily CMP -monitor IOs #Hx A-fib, rate controlled #Hx of AAA s/p stent #Hx of CAD s/p stent Patient follows up with cardiology for annual screening in [place]. Last visit last week. Denies chest pain or palpitations. Troponin normal. [id number] 5 point outweighs risk of bleed with HAS-BLED of 3. ? Continued home ASPIRIN 81 mg daily ? Continued home ELIQUIS 5 mg BID ? Continue home DILTIAZEM 30 mg TID #Hx HTN #Hx HLD, #Hx hypothyroidism Home meds HCTZ 12.5 daily, LISINOPRIL 40 BID, METOPROLOL 50 mg daily, ROSUVASTATIN 40 mg. BP 145/78. ? Continue ATORVASTATIN 40 mg HS ? Holding HCTZ, LISINOPRIL in settings of HOWARD ? contiue METOPROLOL 100mg daily #History of type 2 diabetes On admission initial glucose 140. Last A1c 6.0 on 06/11/2024. Patient takes metformin 500 daily, Tradjenta 5 mg daily for diabetes at home. A1c 10/12/2024 5.8 -Held home medications -Bedside blood glucose checks ACHS -Insulin lispro sliding scale -Carb consistent low diet #Mild hypernatremia-resolved Sodium 146. Likely dehydration. ? Encourage oral fluids ? Daily CMP #GERD ? Continue home FAMOTIDINE 40 mg daily Health maintenance Diet: CHO consistent GI prophylaxis: LORATADINE DVT prophylaxis: ELIQUIS Antibiotics: CEFTRIAXONE, AZITHROMYCIN CODE STATUS: Full code Disposition: titrating oygen The patient's management plan was discussed with my attending physician Dr. Hoffman. Martha Canchola, PGY-1 Attending Provider Attestation/Addendum IAmy, DO, attest that I was physically present for the schaffer portions of the service and evaluated the patient with the resident and I reviewed and discussed the case with the resident and agree with the resident's findings and plans of care as documented above Patient seen and evaluated this AM. He is currently on 35L/min and FiO2 of 70%. Patient states he is feeling well. Would like to get OOB to chair. Encouraged patient to use IS. Increased cardizem to 60mg PO TID due to elevated BP and HR. Continue to titrate O2 as tolerated
--- NOTE | 2024-10-18 10:47 | XR_ITS ---
Examination: AP chest single view Technique one AP portable semiupright chest single view Exam date and time: October 2024 1146 hrs. Comparison October 13, 2024 Indications: History bilateral pneumonia, clinical diagnosis aspiration pneumonia Findings: Bilateral pneumonia, diffuse and extensive in the right lung Mild enlargement cardiac contour Ectatic thoracic aorta Impression: Bilateral pneumonia, extensive in the right lung
[2024-10-18] MEDS: DILTIAZEM 30 MG TABLET 60 MG PO ×3 (11:29→21:16)
[2024-10-18] MEDS: INSULIN LISPRO (AdmeLOG) 1 UNIT/0.01 ML UNIT SC ×3 (12:28→20:48)
[2024-10-18] MEDS: METOPROLOL SUCCINATE XL 25 MG TABCR 100 MG PO (20:47)
[2024-10-18] MEDS: ATORVASTATIN CALCIUM 20 MG TABLET 40 MG PO (20:48)
[2024-10-19] VITALS (16 sets, daily range): BP systolic 114–127; BP diastolic 60–88; PULSE 67–86; RESP 16–27; TEMP 36.4–36.6; O2SAT 91–98
[2024-10-19] MEDS: DILTIAZEM 30 MG TABLET 60 MG PO ×3 (05:10→21:55)
[2024-10-19] MEDS: LEVOTHYROXINE SODIUM 25 MCG TABLET 50 MCG PO (05:11)
[2024-10-19 05:59] LABS: Basophils # (Auto) 0.1 Thou/mm3 (0.0-0.2); Basophils % (Auto) 1 % (0-2.5); Eosinophils # (Auto) 0.6 Thou/mm3 (0.0-0.5); Eosinophils % (Auto) 5 % (0-10); Hematocrit 30.2 % (41.0-53.0); Hemoglobin 10.1 g/dL (13.5-16.0); Immature Granulocytes % (Auto) 2 % (0-0); Immature Granulocytes Auto 0.21 Thou/mm3 (0.00-0.00); Lymphocytes % (Auto) 8 % (10-50); Mean Corpuscular HGB Conc 33.4 g/dl (31.0-37.0); Mean Corpuscular Hemoglobin 30.2 pg (25.0-35.0); Mean Corpuscular Volume 90 fL (80-100); Monocytes # (Auto) 1.1 Thou/mm3 (0.0-0.8); Monocytes % (Auto) 9 % (0-12); Neutrophils # (Auto) 9.2 Thou/mm3 (1.8-7.7); Neutrophils % (Auto) 75 % (37-80); Nucleated Red Blood Cell % 0 /100 WBC (0); Platelet Count 214 Thou/mm3 (140-440); Red Blood Count 3.34 Miln/mm3 (4.50-5.90); White Blood Count 12.2 Thou/mm3 (3.8-10.6)
[2024-10-19 06:25] LABS: Alanine Aminotransferase 31 U/L (10-49); Albumin, Serum 3.4 gm/dL (3.4-4.8); Albumin/Globulin Ratio 1.4 (1.2-2.2); Alkaline Phosphatase 85 U/L (46-116); Anion Gap 7 (7-16); Aspartate Amino Transferase 32 U/L (0-34); BUN/Creatinine Ratio 24 Ratio (12-20); Bilirubin,Total 0.7 mg/dL (0.3-1.2); Blood Urea Nitrogen 17 mg/dL (9-23); Calcium 8.8 mg/dL (8.3-10.6); Calcium (Corrected) 9.3 mg/dL (8.5-10.1); Carbon Dioxide 26.1 mMol/L (20.0-31.0); Chloride 107 mMol/L (98-107); Creatinine (Component) 0.7 mg/dL (0.6-1.3); Estimated Creatinine Clearance 85.5 mL/min (>60); Globulin 2.4 gm/dL (2.3-3.5); Glucose 129 mg/dL (74-106); Osmolality,Calculated 282 (275-295); Sodium 140 mMol/L (136-145); Total Protein 5.8 gm/dL (5.7-8.2); eGFR > 60 See Note
[2024-10-19] MEDS: BUDESONIDE RT 0.5 MG/2 ML NEBU INH ×2 (07:12→19:27)
[2024-10-19] MEDS: ALBUTEROL/IPRATROPIUM (Duoneb) RT SOL 3 ML NEBU INH ×3 (07:12→19:27)
[2024-10-19] MEDS: FAMOTIDINE 20 MG TABLET PO (08:19)
[2024-10-19] MEDS: APIXABAN 2.5 MG TABLET 5 MG PO ×2 (08:19→20:15)
[2024-10-19] MEDS: ASPIRIN EC 81 MG TABEC PO (08:20)
--- NOTE | 2024-10-19 10:02 | ESPR_ITS ---
Documentation for date of: 10/19/24 Subjective Subjective Interval history: Patient seen and examined at bedside. No acute complaints overnight. Remains on HNFC at 35L and 80% FiO2. Able to ambulate, tolerating PO. Completed his course of antibiotics. Will try chest PT and steroids to help bring up phlegm. Exam Vital Signs Temp Pulse Resp BP Pulse Ox O2 Del Method O2 Flow Rate 97.8 F 67 16 127/71 95 High Flow Nasal Cannula 35 10/19/24 08:00 10/19/24 08:00 10/19/24 08:00 10/19/24 08:00 10/19/24 08:00 10/19/24 08:00 10/19/24 08:00 FiO2 80 10/19/24 07:15 Narrative Exam Constitutional: NAD. Awake, alert, pleasant. HEENT: NCAT. Vision grossly intact. Respiratory: Ronchi right side > L, not tachypneic. Expiratory wheeze Cardiac: RRR. Abdomen: Soft, non-distended, non-tender. MSK: No B/L LE edema. Skin: Warm, dry, intact. Neuro: Motor and sensation grossly intact. Psychiatric: Appropriate mood and affect. Objective Labs 10/19/24 05:14 10/19/24 05:14 Labs: Laboratory Results - last 24 hr 10/19/24 05:14 WBC 12.2 H RBC 3.34 L Hgb 10.1 L Hct 30.2 L MCV 90 MCH 30.2 MCHC 33.4 RDW Std Deviation 45.0 H Plt Count 214 Neut % (Auto) 75 Lymph % (Auto) 8 L [place] % (Auto) 9 Eos % (Auto) 5 Baso % (Auto) 1 Neut # (Auto) 9.2 H Lymph # (Auto) 1.0 [place] # (Auto) 1.1 H Eos # (Auto) 0.6 H Baso # (Auto) 0.1 Immature Gran # (Auto) 0.21 H Absolute Nucleated RBC 0.00 Immature Gran % 2 H Nucleated RBC % 0 Sodium 140 Potassium 4.0 Chloride 107 Carbon Dioxide 26.1 Anion Gap 7 BUN 17 Creatinine 0.7 Estim Creat Clear Calc 85.5 eGFR > 60 BUN/Creatinine Ratio 24 H Glucose 129 H Calculated Osmolality 282 Calcium 8.8 Corrected Calcium 9.3 Total Bilirubin 0.7 AST 32 ALT 31 Alkaline Phosphatase 85 Total Protein 5.8 Albumin 3.4 Globulin 2.4 Albumin/Globulin Ratio 1.4 Quality Measures Quality Measures none Advance care planning discussed with:: patient and spouse Assessment & Plan Assessment Current Active Medications: Generic Name Dose Route Start Last Admin Trade Name Freq PRN Reason Stop Dose Admin Acetaminophen 650 mg 10/11/24 23:24 10/16/24 21:50 Acetaminophen 325 Mg Tablet PO 11/10/24 23:23 650 mg Q6H PRN Administration PAIN SCALE 1-3 (mild Acetaminophen 650 mg 10/11/24 23:24 Acetaminophen 325 Mg Tablet PO 11/10/24 23:23 Q6H PRN Fever >100 Acetylcysteine 3 ml 10/19/24 13:00 Acetylcysteine Rt Yesenia 10% 4 Ml Nebu INH 11/18/24 12:59 Q6HRRT TERESA Albuterol/Ipratropium 3 ml 10/19/24 13:00 Albuterol/Ipratropium (Duoneb) Rt Yesenia 3 Ml Nebu INH 11/18/24 12:59 Q6HRRT TERESA Apixaban 5 mg 10/11/24 23:45 10/19/24 08:19 Apixaban 2.5 Mg Tablet PO 11/10/24 23:44 5 mg BID TERESA Administration Aspirin 81 mg 10/12/24 09:00 10/19/24 08:20 Aspirin Ec 81 Mg Tabec PO 11/11/24 08:59 81 mg QDAY TERESA Administration Atorvastatin Calcium 40 mg 10/12/24 21:00 10/18/24 20:48 Atorvastatin Calcium 20 Mg Tablet PO 11/11/24 20:59 40 mg HS TERESA Administration Budesonide 0.5 mg 10/15/24 19:00 10/19/24 07:12 Budesonide Rt 0.5 Mg/2 Ml Nebu INH 11/14/24 18:59 0.5 mg BIDRT TERESA Administration Dextrose 25 ml 10/11/24 23:36 Dextrose 50%-Water Inj 50 Ml Syringe IV 11/10/24 23:35 Q15MIN PRN BG 50-70 responsive npo pt Dextrose 50 ml 10/11/24 23:36 Dextrose 50%-Water Inj 50 Ml Syringe IV 11/10/24 23:35 Q15MIN PRN BG <50 OR BG <70 & pt unresponsive Diltiazem HCl 60 mg 10/18/24 11:00 10/19/24 05:10 Diltiazem 30 Mg Tablet PO 11/17/24 10:59 60 mg TID TERESA Administration Famotidine 20 mg 10/12/24 09:00 10/19/24 08:19 Famotidine 20 Mg Tablet PO 11/11/24 08:59 20 mg QDAY TERESA Administration Glucagon 1 mg 10/11/24 23:36 Glucagon Inj 1 Mg Vial IM Q15MIN PRN BG <70, and no IV access Insulin Human Lispro 0 unit 10/12/24 07:30 10/19/24 08:10 Insulin Lispro (Admelog) 1 Unit/0.01 Ml Unit SC 11/11/24 07:29 Not Given ACHS TERESA Protocol Levothyroxine Sodium 50 mcg 10/12/24 06:00 10/19/24 05:11 Levothyroxine Sodium 25 Mcg Tablet PO 11/11/24 05:59 50 mcg ACBR TERESA Administration Metoprolol Succinate 100 mg 10/16/24 21:00 10/18/24 20:47 Metoprolol Succinate Xl 25 Mg Tabcr PO 11/15/24 20:59 100 mg HS TERESA Administration Ondansetron HCl 4 mg 10/11/24 23:24 Ondansetron Inj 2 Mg/Ml Inj 2 Ml IV 11/10/24 23:23 Q6H PRN NAUSEA OR VOMITING Protocol Prednisone 40 mg 10/20/24 09:00 Prednisone 20 Mg Tablet PO 10/25/24 08:59 QDAY TERESA Sennosides 1 tab 10/15/24 12:04 10/15/24 20:06 Senna Tablet PO 11/14/24 12:03 1 tab QDAY PRN Administration CONSTIPATION Protocol Plan Mr. Rasheed Mayo is 79-year-old male PMHx of AAA 10 years ago s/p stenting, CAD with stents, A-fib, HTN, HLD, hypothyroidism, T2DM and GERD, presenting with fever, cough, SOB. Admitted for sepsis 2/2 pneumonia. #AHRF 2/2 E. coli PNA #Sepsis (resolved) 2/2 E. coli PNA Presenting with scott sputum cough, fever, and SOB x 3 days. Patient had aspiration event before arrival to hospital. Per at bedside, he had been smoking marijuana, followed by episode of emesis with coughing. Met sepsis with 2/3 SIRS criteria: tachypnea and leukocytosis, pneumonia likely source, endorgan damage (HOWARD). CXR showed bibasilar pneumonia. Basilar lung crackles and 1+ bilateral lower extremity edema on exam. BNP 206. PSI index 81 indicates class III risk. CURB-65 of 2 indicates Moderate risk. Sputum culture positive for E. coli. Patient completed course of azithromcyin and ceftriaxone (10/11-10/17) ? Continue DuoNebs q.6h. 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 Chest physio therapy - Trial prednisone 40mg #Type B thoracic aortic dissection, stable CT chest on 10/13 showed Thaddeus type B thoracic aortic dissection beginning distal to the left subclavian artery with aneurysmal dilatation ascending thoracic aorta and upper abdominal aorta Unsure at this time of dissection is new or old. Patient is denying any chest pain or back pain. Inspector Mechanical Dr. Valerio consulted and recommends transfer for evaluation. -Recommendations to keep blood pressure less than 120/80 and heart rate around 70. -continue metoprolol 100 mg daily -Diltiazem 60 TID -Patient and family are willing to follow-up with cardiothoracic surgeon Dr. Tu Valadez from [facility]. (clinic number: [phone]) #Hx A-fib, rate controlled #Hx of AAA s/p stent #Hx of CAD s/p stent #HFmrEF, EF 40% Patient follows up with cardiology for annual screening in [place]. Last visit last week. Denies chest pain or palpitations. Troponin normal. Echo: Normal LV size. Global LV systolic function is mildly decreased. LVEF 40%. Hypokinetic mid-anterior septal wall motion. [id number] 5 point outweighs risk of bleed with HAS-BLED of 3. ? Continued home ASPIRIN 81 mg daily ? Continued home ELIQUIS 5 mg BID ? Continue home DILTIAZEM 60mg TID #Hx HTN #Hx HLD, #Hx hypothyroidism Home meds HCTZ 12.5 daily, LISINOPRIL 40 BID, METOPROLOL 50 mg daily, ROSUVASTATIN 40 mg. BP 145/78. ? Continue ATORVASTATIN 40 mg HS ? Holding HCTZ, LISINOPRIL in settings of HOWARD, consider restarting ? contiue METOPROLOL 100mg daily #History of type 2 diabetes, A1c 5.8 On admission initial glucose 140. Last A1c 6.0 on 06/11/2024. Patient takes metformin 500 daily, Tradjenta 5 mg daily for diabetes at home. A1c 10/12/2024 5.8 -Held home medications -Bedside blood glucose checks ACHS -Insulin lispro sliding scale -Carb consistent low diet #Mild hypernatremia-resolved #Prerenal HOWARD-resolved #GERD ? Continue home FAMOTIDINE 40 mg daily Health maintenance Diet: CHO consistent GI prophylaxis: famotadine DVT prophylaxis: ELIQUIS Antibiotics: none CODE STATUS: Full code Disposition: titrating HFNC The patient's management plan was discussed with my attending physician Dr. Hoffman. Roxana Cantor MD PGY-3 Attending Provider Attestation/Addendum IAmy DO, attest that I was physically present for the schaffer portions of the service and evaluated the patient with the resident and I reviewed and discussed the case with the resident and agree with the resident's findings and plans of care as documented above Patient seen and evaluated this AM. No acute events overnight. He is currently on 35L/min with FIO2 of 80%. Patient had desaturation yesterday after getting up to chair. Per , patient had some difficulty with transfer and O2 sat took some time to recover. Patient has otherwise no complaints. He continues to have rhonchi in right lung ramos. Will add mucomyst and manual percussion. Will also start steroids to decrease inflammation.
[2024-10-19] MEDS: ACETYLCYSTEINE RT SOL 10% 4 ML NEBU 3 ML INH ×2 (13:44→19:27)
[2024-10-19] MEDS: ATORVASTATIN CALCIUM 20 MG TABLET 40 MG PO (20:15)
[2024-10-19] MEDS: METOPROLOL SUCCINATE XL 25 MG TABCR 100 MG PO (20:15)
[2024-10-19] MEDS: INSULIN LISPRO (AdmeLOG) 1 UNIT/0.01 ML UNIT SC (21:08)
[2024-10-20] VITALS (17 sets, daily range): BP systolic 113–132; BP diastolic 59–73; PULSE 61–81; RESP 18–25; TEMP 36.2–36.8; O2SAT 91–98
[2024-10-20] MEDS: ACETYLCYSTEINE RT SOL 10% 4 ML NEBU 3 ML INH ×4 (00:52→18:10)
[2024-10-20] MEDS: ALBUTEROL/IPRATROPIUM (Duoneb) RT SOL 3 ML NEBU INH ×4 (00:52→18:10)
[2024-10-20] MEDS: DILTIAZEM 30 MG TABLET 60 MG PO ×3 (05:39→21:02)
[2024-10-20] MEDS: LEVOTHYROXINE SODIUM 25 MCG TABLET 50 MCG PO (05:40)
[2024-10-20] MEDS: BUDESONIDE RT 0.5 MG/2 ML NEBU INH ×2 (06:26→18:10)
[2024-10-20 08:23] LABS: Basophils # (Auto) 0.1 Thou/mm3 (0.0-0.2); Basophils % (Auto) 1 % (0-2.5); Eosinophils # (Auto) 0.7 Thou/mm3 (0.0-0.5); Eosinophils % (Auto) 5 % (0-10); Hematocrit 32.8 % (41.0-53.0); Hemoglobin 10.8 g/dL (13.5-16.0); Immature Granulocytes % (Auto) 2 % (0-0); Immature Granulocytes Auto 0.25 Thou/mm3 (0.00-0.00); Lymphocytes % (Auto) 8 % (10-50); Mean Corpuscular HGB Conc 32.9 g/dl (31.0-37.0); Mean Corpuscular Hemoglobin 30.3 pg (25.0-35.0); Mean Corpuscular Volume 92 fL (80-100); Monocytes % (Auto) 7 % (0-12); Neutrophils # (Auto) 10.1 Thou/mm3 (1.8-7.7); Neutrophils % (Auto) 77 % (37-80); Nucleated Red Blood Cell % 0 /100 WBC (0); Platelet Count 259 Thou/mm3 (140-440); RDW Standard Deviation 45.5 fL (35.1-43.9); Red Blood Count 3.56 Miln/mm3 (4.50-5.90); White Blood Count 13.1 Thou/mm3 (3.8-10.6)
[2024-10-20] MEDS: APIXABAN 2.5 MG TABLET 5 MG PO ×2 (08:24→20:37)
[2024-10-20] MEDS: ASPIRIN EC 81 MG TABEC PO (08:24)
[2024-10-20] MEDS: predniSONE 20 MG TABLET 40 MG PO (08:24)
[2024-10-20] MEDS: FAMOTIDINE 20 MG TABLET PO (08:24)
[2024-10-20 08:45] LABS: Anion Gap 7 (7-16); BUN/Creatinine Ratio 21 Ratio (12-20); Blood Urea Nitrogen 17 mg/dL (9-23); Calcium 9.4 mg/dL (8.3-10.6); Carbon Dioxide 25.8 mMol/L (20.0-31.0); Chloride 112 mMol/L (98-107); Creatinine (Component) 0.8 mg/dL (0.6-1.3); Estimated Creatinine Clearance 74.8 mL/min (>60); Glucose 166 mg/dL (74-106); Osmolality,Calculated 294 (275-295); Potassium 4.2 mMol/L (3.4-5.1); Sodium 145 mMol/L (136-145); eGFR > 60 See Note
--- NOTE | 2024-10-20 10:07 | PC.SS ---
Follow up note: Patient remains on high flow 02. Patient is full code
[2024-10-20] MEDS: INSULIN LISPRO (AdmeLOG) 1 UNIT/0.01 ML UNIT SC ×3 (12:24→21:01)
--- NOTE | 2024-10-20 14:25 | ESPR_ITS ---
<Statement entered by Roxana Cantor MD - 10/20/24 14:46> I discussed with and supervised my co-resident involved in the care of this patient. I agree with the assessment and plan as documented above. Patient seen and examined at bedside. Remains on HFNC 40L at FiO2 of 70%. Patient reports his SpO2 decreases whenever he lies on his side, and the HFNC requirements end up increasing so he tries to sleep on his back. Will continue to try to titrate down on the HFNC and continue steroids for suspected post- pneumonia inflammation and scarring. Roxana Cantor MD PGY-3 Documentation for date of: 10/20/24 Subjective Subjective Interval history: Patient seen and examined at bedside. No major complaints. Continues to be on high flow nasal cannula at 40 L, 70% FiO2 saturating at 93%. Slight increase in WBCs. Likely reactive to steroids. Continue to titrate O2, breathing treatment, CPT, and steroids. Exam Vital Signs Temp Pulse Resp BP Pulse Ox O2 Del Method O2 Flow Rate 97.1 F 61 20 113/59 L 98 High Flow Nasal Cannula 40 10/20/24 12:00 10/20/24 12:04 10/20/24 12:04 10/20/24 12:00 10/20/24 12:04 10/20/24 12:00 10/20/24 12:04 FiO2 70 10/20/24 12:04 Narrative Exam General: Sitting comfortably in bed. No acute distress, cooperative Eyes: Pupils are equal and reactive to light bilaterally HENT: Atraumatic, normocephalic. No JVD noted. Mucosa moist. Cardiovascular: Normal S1 and S2. Regular rate and rhythm. Respiratory: b/L rhonchi, on 40L HFNC Abdomen: Soft, nontender, not distended, normal bowel sounds. Skin: Warm to touch, dry, no rashes noted, small bruises noted throughout extremities Musculoskeletal: No gross injuries. Able to move all 4 extremities. Neuro: Grossly intact Psych: Normal affect and mood Objective Labs 10/20/24 08:10 10/20/24 08:10 Labs: Laboratory Results - last 24 hr 10/20/24 08:10 WBC 13.1 H RBC 3.56 L Hgb 10.8 L Hct 32.8 L MCV 92 MCH 30.3 MCHC 32.9 RDW Std Deviation 45.5 H Plt Count 259 D Neut % (Auto) 77 Lymph % (Auto) 8 L [place] % (Auto) 7 Eos % (Auto) 5 Baso % (Auto) 1 Neut # (Auto) 10.1 H Lymph # (Auto) 1.0 [place] # (Auto) 1.0 H Eos # (Auto) 0.7 H Baso # (Auto) 0.1 Immature Gran # (Auto) 0.25 H Absolute Nucleated RBC 0.00 Immature Gran % 2 H Nucleated RBC % 0 Sodium 145 Potassium 4.2 Chloride 112 H Carbon Dioxide 25.8 Anion Gap 7 BUN 17 Creatinine 0.8 Estim Creat Clear Calc 74.8 eGFR > 60 BUN/Creatinine Ratio 21 H Glucose 166 H Calculated Osmolality 294 Calcium 9.4 Quality Measures Quality Measures none Advance care planning discussed with:: patient Assessment & Plan Assessment Current Active Medications: Generic Name Dose Route Start Last Admin Trade Name Freq PRN Reason Stop Dose Admin Acetaminophen 650 mg 10/11/24 23:24 10/16/24 21:50 Acetaminophen 325 Mg Tablet PO 11/10/24 23:23 650 mg Q6H PRN Administration PAIN SCALE 1-3 (mild Acetaminophen 650 mg 10/11/24 23:24 Acetaminophen 325 Mg Tablet PO 11/10/24 23:23 Q6H PRN Fever >100 Acetylcysteine 3 ml 10/19/24 13:00 10/20/24 12:01 Acetylcysteine Rt Yesenia 10% 4 Ml Nebu INH 11/18/24 12:59 3 ml Q6HRRT TERESA Administration Albuterol/Ipratropium 3 ml 10/19/24 13:00 10/20/24 12:01 Albuterol/Ipratropium (Duoneb) Rt Yesenia 3 Ml Nebu INH 11/18/24 12:59 3 ml Q6HRRT TERESA Administration Apixaban 5 mg 10/11/24 23:45 10/20/24 08:24 Apixaban 2.5 Mg Tablet PO 11/10/24 23:44 5 mg BID TERESA Administration Aspirin 81 mg 10/12/24 09:00 10/20/24 08:24 Aspirin Ec 81 Mg Tabec PO 11/11/24 08:59 81 mg QDAY TERESA Administration Atorvastatin Calcium 40 mg 10/12/24 21:00 10/19/24 20:15 Atorvastatin Calcium 20 Mg Tablet PO 11/11/24 20:59 40 mg HS TERESA Administration Budesonide 0.5 mg 10/15/24 19:00 10/20/24 06:26 Budesonide Rt 0.5 Mg/2 Ml Nebu INH 11/14/24 18:59 0.5 mg BIDRT TERESA Administration Dextrose 25 ml 10/11/24 23:36 Dextrose 50%-Water Inj 50 Ml Syringe IV 11/10/24 23:35 Q15MIN PRN BG 50-70 responsive npo pt Dextrose 50 ml 10/11/24 23:36 Dextrose 50%-Water Inj 50 Ml Syringe IV 11/10/24 23:35 Q15MIN PRN BG <50 OR BG <70 & pt unresponsive Diltiazem HCl 60 mg 10/18/24 11:00 10/20/24 05:39 Diltiazem 30 Mg Tablet PO 11/17/24 10:59 60 mg TID TERESA Administration Famotidine 20 mg 10/12/24 09:00 10/20/24 08:24 Famotidine 20 Mg Tablet PO 11/11/24 08:59 20 mg QDAY TERESA Administration Glucagon 1 mg 10/11/24 23:36 Glucagon Inj 1 Mg Vial IM Q15MIN PRN BG <70, and no IV access Insulin Human Lispro 0 unit 10/12/24 07:30 10/20/24 12:24 Insulin Lispro (Admelog) 1 Unit/0.01 Ml Unit SC 11/11/24 07:29 2 unit ACHS TERESA Administration Protocol Levothyroxine Sodium 50 mcg 10/12/24 06:00 10/20/24 05:40 Levothyroxine Sodium 25 Mcg Tablet PO 11/11/24 05:59 50 mcg ACBR TERESA Administration Metoprolol Succinate 100 mg 10/16/24 21:00 10/19/24 20:15 Metoprolol Succinate Xl 25 Mg Tabcr PO 11/15/24 20:59 100 mg HS TERESA Administration Ondansetron HCl 4 mg 10/11/24 23:24 Ondansetron Inj 2 Mg/Ml Inj 2 Ml IV 11/10/24 23:23 Q6H PRN NAUSEA OR VOMITING Protocol Prednisone 40 mg 10/20/24 09:00 10/20/24 08:24 Prednisone 20 Mg Tablet PO 10/25/24 08:59 40 mg QDAY TERESA Administration Sennosides 1 tab 10/15/24 12:04 10/15/24 20:06 Senna Tablet PO 11/14/24 12:03 1 tab QDAY PRN Administration CONSTIPATION Protocol Plan Mr. Rasheed Mayo is 79-year-old male PMHx of AAA 10 years ago s/p stenting, CAD with stents, A-fib, HTN, HLD, hypothyroidism, T2DM and GERD, presenting with fever, cough, SOB. Admitted for E coli pneumonia. #AHRF 2/2 E. coli PNA #Sepsis (resolved) 2/2 E. coli PNA Presenting with scott sputum cough, fever, and SOB x 3 days. Patient had aspiration event before arrival to hospital. Per at bedside, he had been smoking marijuana, followed by episode of emesis with coughing. Met sepsis with 2/3 SIRS criteria: tachypnea and leukocytosis, pneumonia likely source, endorgan damage (HOWARD). CXR showed bibasilar pneumonia. Basilar lung crackles and 1+ bilateral lower extremity edema on exam. BNP 206. PSI index 81 indicates class III risk. CURB-65 of 2 indicates Moderate risk. Sputum culture positive for E. coli. Patient completed course of azithromcyin and ceftriaxone (10/11-10/17) ? Continue DuoNebs q.6h. 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 Chest physio therapy -prednisone 40mg #Type B thoracic aortic dissection, stable CT chest on 10/13 showed [place] type B thoracic aortic dissection beginning distal to the left subclavian artery with aneurysmal dilatation ascending thoracic aorta and upper abdominal aorta Unsure at this time of dissection is new or old. Patient is denying any chest pain or back pain. Purification Operator Dr. Valerio consulted and recommends transfer for evaluation. -Recommendations to keep blood pressure less than 120/80 and heart rate around 70. -continue metoprolol 100 mg daily -Diltiazem 60 TID -Patient and family are willing to follow-up with cardiothoracic surgeon Dr. Tu Valadez from [facility]. (clinic number: [phone]) #Hx A-fib, rate controlled #Hx of AAA s/p stent #Hx of CAD s/p stent #HFmrEF, EF 40% Patient follows up with cardiology for annual screening in [place]. Last visit last week. Denies chest pain or palpitations. Troponin normal. Echo: Normal LV size. Global LV systolic function is mildly decreased. LVEF 40%. Hypokinetic mid-anterior septal wall motion. [id number] 5 point outweighs risk of bleed with HAS-BLED of 3. ? Continued home ASPIRIN 81 mg daily ? Continued home ELIQUIS 5 mg BID ? Continue home DILTIAZEM 60mg TID #Hx HTN #Hx HLD, #Hx hypothyroidism Home meds HCTZ 12.5 daily, LISINOPRIL 40 BID, METOPROLOL 50 mg daily, ROSUVASTATIN 40 mg. BP 145/78. ? Continue ATORVASTATIN 40 mg HS ? Holding HCTZ, LISINOPRIL in settings of HOWARD, consider restarting ? contiue METOPROLOL 100mg daily #History of type 2 diabetes, A1c 5.8 On admission initial glucose 140. Last A1c 6.0 on 06/11/2024. Patient takes metformin 500 daily, Tradjenta 5 mg daily for diabetes at home. A1c 10/12/2024 5.8 -Held home medications -Bedside blood glucose checks ACHS -Insulin lispro sliding scale -Carb consistent low diet #Mild hypernatremia-resolved #Prerenal HOWARD-resolved #GERD ? Continue home FAMOTIDINE 40 mg daily Health maintenance Diet: CHO consistent GI prophylaxis: famotadine DVT prophylaxis: ELIQUIS CODE STATUS: Full code Disposition: titrating HFNC The patient's management plan was discussed with my attending physician Dr. Hoffman and senior Dr. Cantor. Martha Canchola PGY1 Attending Provider Attestation/Addendum Amy Alexis, , attest that I was physically present for the schaffer portions of the service and evaluated the patient with the resident and I reviewed and discussed the case with the resident and agree with the resident's findings and plans of care as documented above Patient seen and eval this a.m. He states overall feeling improved. No acute events overnight. He is currently on 4 L/minute and FiO2 of 70%. Will continue with PT. Rhonchi appears to be improved from right lung field. Encourage patient to use incentive spirometer and Acapella. He states chest PT vest was not very helpful, but improved with manual percussion. Will continue with current management otherwise.
[2024-10-20] MEDS: ATORVASTATIN CALCIUM 20 MG TABLET 40 MG PO (20:37)
[2024-10-20] MEDS: METOPROLOL SUCCINATE XL 25 MG TABCR 100 MG PO (21:02)
[2024-10-21] VITALS (16 sets, daily range): BP systolic 118–136; BP diastolic 61–67; PULSE 61–111; RESP 18–27; TEMP 36.4–36.6; O2SAT 91–96
[2024-10-21] MEDS: ALBUTEROL/IPRATROPIUM (Duoneb) RT SOL 3 ML NEBU INH ×4 (00:18→18:42)
[2024-10-21] MEDS: ACETYLCYSTEINE RT SOL 10% 4 ML NEBU 3 ML INH ×4 (00:18→18:42)
[2024-10-21] MEDS: DILTIAZEM 30 MG TABLET 60 MG PO ×3 (05:22→20:40)
[2024-10-21] MEDS: LEVOTHYROXINE SODIUM 25 MCG TABLET 50 MCG PO (05:22)
[2024-10-21 06:00] LABS: Basophils # (Auto) 0.1 Thou/mm3 (0.0-0.2); Basophils % (Auto) 0 % (0-2.5); Eosinophils # (Auto) 0.1 Thou/mm3 (0.0-0.5); Eosinophils % (Auto) 1 % (0-10); Hematocrit 31.2 % (41.0-53.0); Hemoglobin 10.4 g/dL (13.5-16.0); Immature Granulocytes % (Auto) 2 % (0-0); Immature Granulocytes Auto 0.26 Thou/mm3 (0.00-0.00); Lymphocytes # (Auto) 1.1 Thou/mm3 (1.0-4.8); Lymphocytes % (Auto) 7 % (10-50); Mean Corpuscular HGB Conc 33.3 g/dl (31.0-37.0); Mean Corpuscular Hemoglobin 30.4 pg (25.0-35.0); Mean Corpuscular Volume 91 fL (80-100); Monocytes # (Auto) 1.3 Thou/mm3 (0.0-0.8); Monocytes % (Auto) 8 % (0-12); Neutrophils % (Auto) 82 % (37-80); Nucleated Red Blood Cell % 0 /100 WBC (0); Platelet Count 270 Thou/mm3 (140-440); RDW Standard Deviation 44.8 fL (35.1-43.9); Red Blood Count 3.42 Miln/mm3 (4.50-5.90); White Blood Count 15.9 Thou/mm3 (3.8-10.6)
[2024-10-21 06:38] LABS: Anion Gap 6 (7-16); BUN/Creatinine Ratio 28 Ratio (12-20); Blood Urea Nitrogen 25 mg/dL (9-23); Calcium 9.5 mg/dL (8.3-10.6); Carbon Dioxide 25.8 mMol/L (20.0-31.0); Chloride 110 mMol/L (98-107); Creatinine (Component) 0.9 mg/dL (0.6-1.3); Estimated Creatinine Clearance 66.5 mL/min (>60); Glucose 166 mg/dL (74-106); Osmolality,Calculated 291 (275-295); Sodium 142 mMol/L (136-145); eGFR > 60 See Note
[2024-10-21] MEDS: BUDESONIDE RT 0.5 MG/2 ML NEBU INH ×2 (07:59→18:42)
[2024-10-21] MEDS: INSULIN LISPRO (AdmeLOG) 1 UNIT/0.01 ML UNIT SC ×4 (08:02→20:38)
[2024-10-21] MEDS: predniSONE 20 MG TABLET 40 MG PO (08:04)
[2024-10-21] MEDS: APIXABAN 2.5 MG TABLET 5 MG PO ×2 (08:05→20:40)
[2024-10-21] MEDS: ASPIRIN EC 81 MG TABEC PO (08:06)
[2024-10-21] MEDS: FAMOTIDINE 20 MG TABLET PO (08:06)
--- NOTE | 2024-10-21 10:50 | CHAP ---
Patient was visited by a Spiritual Care Volunteer on 10/21/2024 between 0900 and 1000 and received comfort, encouragement, and/or prayer.
--- NOTE | 2024-10-21 12:03 | XR_ITS ---
Examination: AP chest single view Technique one AP portable upright chest single view Exam date and time: October 21, 2024 1254 hours Comparison October 18, 2024 INDICATIONS: Shortness of breath aspiration pneumonia difficulty breathing 3 days FINDINGS: Bilateral pneumonia, severe and extensive in the right lung Mild prominence left ventricle Prominent osteopenia IMPRESSION: Bilateral pneumonia, extensive in the right lung
--- NOTE | 2024-10-21 12:36 | ESPR_ITS ---
<Statement entered by Roxana Cantor MD - 10/21/24 15:23> I discussed with and supervised my co-resident involved in the care of this patient. I agree with the assessment and plan as documented above. Patient seen this morning. Remains on same HFNC settings. Clinically patient is doing well. Labs show uptrending leukocytosis. Suspect steroid component, patient has been afebrile. Will try restarting antibiotics to see if any improvement. Roxana Cantor MD PGY-3 Documentation for date of: 10/21/24 Subjective Subjective Interval history: Patient seen and examined at bedside. No major complaints. Stated that vest chest PT was not as helpful. Oxygen has been difficult to titrate. Repeat CXR and restart patient on azithromycin 500 mg BID as patient continues to be on high flow nasal cannula at 40 L, 65% FiO2 saturating at 93%. Slight increase in WBCs. Likely reactive to steroids. Continue to titrate O2, breathing treatment, CPT with spirometry/acapella, and steroids. Exam Vital Signs Temp Pulse Resp BP Pulse Ox O2 Del Method O2 Flow Rate 97.5 F 79 22 H 124/61 94 L High Flow Nasal Cannula 40 10/21/24 08:00 10/21/24 10:14 10/21/24 10:14 10/21/24 08:00 10/21/24 10:14 10/21/24 08:00 10/21/24 10:14 FiO2 65 10/21/24 10:14 Narrative Exam General: Sitting comfortably in bed. No acute distress, cooperative Eyes: Pupils are equal and reactive to light bilaterally HENT: Atraumatic, normocephalic. No JVD noted. Mucosa moist. Cardiovascular: Normal S1 and S2. Regular rate and rhythm. Respiratory: b/L rhonchi, on 40L HFNC Abdomen: Soft, nontender, not distended, normal bowel sounds. Skin: Warm to touch, dry, no rashes noted, small bruises noted throughout extremities Musculoskeletal: No gross injuries. Able to move all 4 extremities. Neuro: Grossly intact Psych: Normal affect and mood Objective Labs 10/21/24 05:19 10/21/24 05:19 Labs: Laboratory Results - last 24 hr 10/21/24 05:19 WBC 15.9 H RBC 3.42 L Hgb 10.4 L Hct 31.2 L MCV 91 MCH 30.4 MCHC 33.3 RDW Std Deviation 44.8 H Plt Count 270 Neut % (Auto) 82 H Lymph % (Auto) 7 L [place] % (Auto) 8 Eos % (Auto) 1 Baso % (Auto) 0 Neut # (Auto) 13.0 H Lymph # (Auto) 1.1 [place] # (Auto) 1.3 H Eos # (Auto) 0.1 Baso # (Auto) 0.1 Immature Gran # (Auto) 0.26 H Absolute Nucleated RBC 0.00 Immature Gran % 2 H Nucleated RBC % 0 Sodium 142 Potassium 4.0 Chloride 110 H Carbon Dioxide 25.8 Anion Gap 6 L BUN 25 H Creatinine 0.9 Estim Creat Clear Calc 66.5 eGFR > 60 BUN/Creatinine Ratio 28 H Glucose 166 H Calculated Osmolality 291 Calcium 9.5 Quality Measures Quality Measures none Advance care planning discussed with:: patient Assessment & Plan Assessment Current Active Medications: Generic Name Dose Route Start Last Admin Trade Name Freq PRN Reason Stop Dose Admin Acetaminophen 650 mg 10/11/24 23:24 10/16/24 21:50 Acetaminophen 325 Mg Tablet PO 11/10/24 23:23 650 mg Q6H PRN Administration PAIN SCALE 1-3 (mild Acetaminophen 650 mg 10/11/24 23:24 Acetaminophen 325 Mg Tablet PO 11/10/24 23:23 Q6H PRN Fever >100 Acetylcysteine 3 ml 10/19/24 13:00 10/21/24 07:59 Acetylcysteine Rt [place] 10% 4 Ml Nebu INH 11/18/24 12:59 3 ml Q6HRRT TERESA Administration Albuterol/Ipratropium 3 ml 10/19/24 13:00 10/21/24 07:59 Albuterol/Ipratropium (Duoneb) Rt [place] 3 Ml Nebu INH 11/18/24 12:59 3 ml Q6HRRT TERESA Administration Apixaban 5 mg 10/11/24 23:45 10/21/24 08:05 Apixaban 2.5 Mg Tablet PO 11/10/24 23:44 5 mg BID TERESA Administration Aspirin 81 mg 10/12/24 09:00 10/21/24 08:06 Aspirin Ec 81 Mg Tabec PO 11/11/24 08:59 81 mg QDAY TERESA Administration Atorvastatin Calcium 40 mg 10/12/24 21:00 10/20/24 20:37 Atorvastatin Calcium 20 Mg Tablet PO 11/11/24 20:59 40 mg HS TERESA Administration Budesonide 0.5 mg 10/15/24 19:00 10/21/24 07:59 Budesonide Rt 0.5 Mg/2 Ml Nebu INH 11/14/24 18:59 0.5 mg BIDRT TERESA Administration Dextrose 25 ml 10/11/24 23:36 Dextrose 50%-Water Inj 50 Ml Syringe IV 11/10/24 23:35 Q15MIN PRN BG 50-70 responsive npo pt Dextrose 50 ml 10/11/24 23:36 Dextrose 50%-Water Inj 50 Ml Syringe IV 11/10/24 23:35 Q15MIN PRN BG <50 OR BG <70 & pt unresponsive Diltiazem HCl 60 mg 10/18/24 11:00 10/21/24 05:22 Diltiazem 30 Mg Tablet PO 11/17/24 10:59 60 mg TID TERESA Administration Famotidine 20 mg 10/12/24 09:00 10/21/24 08:06 Famotidine 20 Mg Tablet PO 11/11/24 08:59 20 mg QDAY TERESA Administration Glucagon 1 mg 10/11/24 23:36 Glucagon Inj 1 Mg Vial IM Q15MIN PRN BG <70, and no IV access Insulin Human Lispro 0 unit 10/12/24 07:30 10/21/24 12:03 Insulin Lispro (Admelog) 1 Unit/0.01 Ml Unit SC 11/11/24 07:29 1 unit ACHS TERESA Administration Protocol Levothyroxine Sodium 50 mcg 10/12/24 06:00 10/21/24 05:22 Levothyroxine Sodium 25 Mcg Tablet PO 11/11/24 05:59 50 mcg ACBR TERESA Administration Metoprolol Succinate 100 mg 10/16/24 21:00 10/20/24 21:02 Metoprolol Succinate Xl 25 Mg Tabcr PO 11/15/24 20:59 100 mg HS TERESA Administration Ondansetron HCl 4 mg 10/11/24 23:24 Ondansetron Inj 2 Mg/Ml Inj 2 Ml IV 11/10/24 23:23 Q6H PRN NAUSEA OR VOMITING Protocol Prednisone 40 mg 10/20/24 09:00 10/21/24 08:04 Prednisone 20 Mg Tablet PO 10/25/24 08:59 40 mg QDAY TERESA Administration Sennosides 1 tab 10/15/24 12:04 10/15/24 20:06 Senna Tablet PO 11/14/24 12:03 1 tab QDAY PRN Administration CONSTIPATION Protocol Plan Mr. Rasheed Mayo is 79-year-old male PMHx of AAA 10 years ago s/p stenting, CAD with stents, A-fib, HTN, HLD, hypothyroidism, T2DM and GERD, presenting with fever, cough, SOB. Admitted for E coli pneumonia. #AHRF 2/2 E. coli PNA #Sepsis (resolved) 2/2 E. coli PNA Presenting with scott sputum cough, fever, and SOB x 3 days. Patient had aspiration event before arrival to hospital. Per at bedside, he had been smoking marijuana, followed by episode of emesis with coughing. Met sepsis with 2/3 SIRS criteria: tachypnea and leukocytosis, pneumonia likely source, endorgan damage (HOWARD). CXR showed bibasilar pneumonia. Basilar lung crackles and 1+ bilateral lower extremity edema on exam. BNP 206. PSI index 81 indicates class III risk. CURB-65 of 2 indicates Moderate risk. Sputum culture positive for E. coli. Patient completed course of azithromcyin and ceftriaxone (10/11-10/17) ? Continue DuoNebs q.6h. 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 Chest physio therapy with spirometry/acapella -prednisone 40mg -restart azithromycin 500 mg BID because oxygen requirements have not improved (5 day course until 10/25) -follow up on repeat CXR #Type B thoracic aortic dissection, stable CT chest on 10/13 showed [place] type B thoracic aortic dissection beginning distal to the left subclavian artery with aneurysmal dilatation ascending thoracic aorta and upper abdominal aorta Unsure at this time of dissection is new or old. Patient is denying any chest pain or back pain. Retouching Operator Dr. Valerio consulted and recommends transfer for evaluation. -Recommendations to keep blood pressure less than 120/80 and heart rate around 70. -continue metoprolol 100 mg daily -Diltiazem 60 TID -Patient and family are willing to follow-up with cardiothoracic surgeon Dr. Tu Valadez from [facility]. (clinic number: [phone]) #Hx A-fib, rate controlled #Hx of AAA s/p stent #Hx of CAD s/p stent #HFmrEF, EF 40% Patient follows up with cardiology for annual screening in [place]. Last visit last week. Denies chest pain or palpitations. Troponin normal. Echo: Normal LV size. Global LV systolic function is mildly decreased. LVEF 40%. Hypokinetic mid-anterior septal wall motion. [id number] 5 point outweighs risk of bleed with HAS-BLED of 3. ? Continued home ASPIRIN 81 mg daily ? Continued home ELIQUIS 5 mg BID ? Continue home DILTIAZEM 60mg TID #Hx HTN #Hx HLD, #Hx hypothyroidism Home meds HCTZ 12.5 daily, LISINOPRIL 40 BID, METOPROLOL 50 mg daily, ROSUVASTATIN 40 mg. BP 145/78. ? Continue ATORVASTATIN 40 mg HS ? Holding HCTZ, LISINOPRIL in settings of HOWARD, consider restarting ? contiue METOPROLOL 100mg daily #History of type 2 diabetes, A1c 5.8 On admission initial glucose 140. Last A1c 6.0 on 06/11/2024. Patient takes metformin 500 daily, Tradjenta 5 mg daily for diabetes at home. A1c 10/12/2024 5.8 -Held home medications -Bedside blood glucose checks ACHS -Insulin lispro sliding scale -Carb consistent low diet #Mild hypernatremia-resolved #Prerenal HOWARD-resolved #GERD ? Continue home FAMOTIDINE 40 mg daily Health maintenance Diet: CHO consistent GI prophylaxis: famotadine DVT prophylaxis: ELIQUIS CODE STATUS: Full code Disposition: titrating HFNC The patient's management plan was discussed with my attending physician Dr. Hoffman and senior Dr. Cantor. Martha Canchola PGY1 Attending Provider Attestation/Addendum Amy Alexis, DO, attest that I was physically present for the schaffer portions of the service and evaluated the patient with the resident and I reviewed and discussed the case with the resident and agree with the resident's findings and plans of care as documented above Patient seen and evaluated this AM. Patient remains on 40L/min and FiO2 of 65% on HFNC. Patient states he is feeling well otherwise. He is anxious to get up with PT. Due to lack of improvement after patient completed abx for pneumonia, will restart abx. Mild leukocytosis likely 2/2 steroids. Continue with current management.
--- NOTE | 2024-10-21 13:49 | PC.PT ---
Patient can sit up on the chair prn with staff assist using walker.
[2024-10-21] MEDS: METOPROLOL SUCCINATE XL 25 MG TABCR 100 MG PO (20:39)
[2024-10-21] MEDS: ATORVASTATIN CALCIUM 20 MG TABLET 40 MG PO (20:40)
[2024-10-22] VITALS (19 sets, daily range): BP systolic 112–144; BP diastolic 63–69; PULSE 56–95; RESP 16–22; TEMP 36.6–36.9; O2SAT 91–96; BMI 25.0
[2024-10-22] MEDS: ACETYLCYSTEINE RT SOL 10% 4 ML NEBU 3 ML INH ×4 (00:12→19:01)
[2024-10-22] MEDS: ALBUTEROL/IPRATROPIUM (Duoneb) RT SOL 3 ML NEBU INH ×4 (00:12→19:01)
[2024-10-22] MEDS: DILTIAZEM 30 MG TABLET 60 MG PO ×3 (05:21→20:31)
[2024-10-22] MEDS: LEVOTHYROXINE SODIUM 25 MCG TABLET 50 MCG PO (05:22)
[2024-10-22 05:44] LABS: Basophils # (Auto) 0.1 Thou/mm3 (0.0-0.2); Basophils % (Auto) 0 % (0-2.5); Eosinophils # (Auto) 0.1 Thou/mm3 (0.0-0.5); Eosinophils % (Auto) 1 % (0-10); Hematocrit 30.1 % (41.0-53.0); Hemoglobin 9.9 g/dL (13.5-16.0); Immature Granulocytes % (Auto) 1 % (0-0); Immature Granulocytes Auto 0.22 Thou/mm3 (0.00-0.00); Lymphocytes # (Auto) 1.3 Thou/mm3 (1.0-4.8); Lymphocytes % (Auto) 8 % (10-50); Mean Corpuscular HGB Conc 32.9 g/dl (31.0-37.0); Mean Corpuscular Hemoglobin 30.1 pg (25.0-35.0); Mean Corpuscular Volume 92 fL (80-100); Monocytes # (Auto) 1.2 Thou/mm3 (0.0-0.8); Monocytes % (Auto) 8 % (0-12); Neutrophils # (Auto) 12.8 Thou/mm3 (1.8-7.7); Neutrophils % (Auto) 82 % (37-80); Nucleated Red Blood Cell % 0 /100 WBC (0); Platelet Count 300 Thou/mm3 (140-440); Red Blood Count 3.29 Miln/mm3 (4.50-5.90); White Blood Count 15.6 Thou/mm3 (3.8-10.6)
[2024-10-22 06:11] LABS: Anion Gap 7 (7-16); BUN/Creatinine Ratio 33 Ratio (12-20); Blood Urea Nitrogen 26 mg/dL (9-23); Calcium 9.3 mg/dL (8.3-10.6); Carbon Dioxide 25.4 mMol/L (20.0-31.0); Chloride 110 mMol/L (98-107); Creatinine (Component) 0.8 mg/dL (0.6-1.3); Estimated Creatinine Clearance 74.8 mL/min (>60); Glucose 134 mg/dL (74-106); Osmolality,Calculated 289 (275-295); Potassium 4.2 mMol/L (3.4-5.1); Sodium 142 mMol/L (136-145); eGFR > 60 See Note
[2024-10-22] MEDS: BUDESONIDE RT 0.5 MG/2 ML NEBU INH ×2 (07:17→19:01)
[2024-10-22] MEDS: predniSONE 20 MG TABLET 40 MG PO (09:56)
[2024-10-22] MEDS: ASPIRIN EC 81 MG TABEC PO (09:56)
[2024-10-22] MEDS: FAMOTIDINE 20 MG TABLET PO (09:56)
[2024-10-22] MEDS: AMOXICILLIN/POT CLAV 500 MG TABLET PO (09:56)
[2024-10-22] MEDS: APIXABAN 2.5 MG TABLET 5 MG PO ×2 (09:56→20:29)
--- NOTE | 2024-10-22 13:51 | ESPR_ITS ---
<Statement entered by Roxana Cantor MD - 10/22/24 17:37> I discussed with and supervised my co-resident involved in the care of this patient. I agree with the assessment and plan as documented above. Patient seen at bedside, no acute complaints. Remains on HFNC at 40L and 60%FiO2. Afebrile. Leukocytosis remains elevated, unchanged. Will broaden IV antibiotics to Zosyn, and give Lasix for congestion. Roxana Cantor MD PGY-3 Documentation for date of: 10/22/24 Subjective Subjective Interval history: Patient seen and examined at bedside. No major complaints. Oxygen has been difficult to titrate. Repeat CXR shows no major improvement in pneumonia. Will start patient on Zosyn 3.375 g TID (after completing ceftriaxone/azithromycin for 5 days last week) and try IV Lasix 20 mg x1 due to rhonchi. Remains on high flow nasal cannula at 40 L, 60% FiO2 saturating at 93%. Leukocytosis stable. Likely reactive to steroids. Continue to titrate O2, breathing treatment, CPT with spirometry/acapella, and steroids. Exam Vital Signs Temp Pulse Resp BP Pulse Ox O2 Del Method O2 Flow Rate 98.0 F 68 19 123/63 95 High Flow Nasal Cannula 40 10/22/24 12:00 10/22/24 13:17 10/22/24 13:17 10/22/24 12:00 10/22/24 13:17 10/22/24 12:00 10/22/24 13:17 FiO2 60 10/22/24 13:17 Narrative Exam General: Sitting comfortably in bed. No acute distress, cooperative Eyes: Pupils are equal and reactive to light bilaterally HENT: Atraumatic, normocephalic. No JVD noted. Mucosa moist. Cardiovascular: Normal S1 and S2. Regular rate and rhythm. Respiratory: b/L rhonchi, on 40L HFNC Abdomen: Soft, nontender, not distended, normal bowel sounds. Skin: Warm to touch, dry, no rashes noted, small bruises noted throughout extremities Musculoskeletal: No gross injuries. Able to move all 4 extremities. Neuro: Grossly intact Psych: Normal affect and mood Objective Labs 10/23/24 04:35 10/23/24 04:35 Labs: Laboratory Results - last 24 hr 10/22/24 05:11 WBC 15.6 H RBC 3.29 L Hgb 9.9 L Hct 30.1 L MCV 92 MCH 30.1 MCHC 32.9 RDW Std Deviation 45.0 H Plt Count 300 D Neut % (Auto) 82 H Lymph % (Auto) 8 L [place] % (Auto) 8 Eos % (Auto) 1 Baso % (Auto) 0 Neut # (Auto) 12.8 H Lymph # (Auto) 1.3 [place] # (Auto) 1.2 H Eos # (Auto) 0.1 Baso # (Auto) 0.1 Immature Gran # (Auto) 0.22 H Absolute Nucleated RBC 0.00 Immature Gran % 1 H Nucleated RBC % 0 Sodium 142 Potassium 4.2 Chloride 110 H Carbon Dioxide 25.4 Anion Gap 7 BUN 26 H Creatinine 0.8 Estim Creat Clear Calc 74.8 eGFR > 60 BUN/Creatinine Ratio 33 H Glucose 134 H Calculated Osmolality 289 Calcium 9.3 Quality Measures Quality Measures none Advance care planning discussed with:: patient Assessment & Plan Assessment Current Active Medications: Generic Name Dose Route Start Last Admin Trade Name Freq PRN Reason Stop Dose Admin Acetaminophen 650 mg 10/11/24 23:24 10/16/24 21:50 Acetaminophen 325 Mg Tablet PO 11/10/24 23:23 650 mg Q6H PRN Administration PAIN SCALE 1-3 (mild Acetaminophen 650 mg 10/11/24 23:24 Acetaminophen 325 Mg Tablet PO 11/10/24 23:23 Q6H PRN Fever >100 Acetylcysteine 3 ml 10/19/24 13:00 10/22/24 13:15 Acetylcysteine Rt Yesenia 10% 4 Ml Nebu INH 11/18/24 12:59 3 ml Q6HRRT TERESA Administration Albuterol/Ipratropium 3 ml 10/19/24 13:00 10/22/24 13:15 Albuterol/Ipratropium (Duoneb) Rt Yesenia 3 Ml Nebu INH 11/18/24 12:59 3 ml Q6HRRT TERESA Administration Apixaban 5 mg 10/11/24 23:45 10/22/24 09:56 Apixaban 2.5 Mg Tablet PO 11/10/24 23:44 5 mg BID TERESA Administration Aspirin 81 mg 10/12/24 09:00 10/22/24 09:56 Aspirin Ec 81 Mg Tabec PO 11/11/24 08:59 81 mg QDAY TERESA Administration Atorvastatin Calcium 40 mg 10/12/24 21:00 10/21/24 20:40 Atorvastatin Calcium 20 Mg Tablet PO 11/11/24 20:59 40 mg HS TERESA Administration Budesonide 0.5 mg 10/15/24 19:00 10/22/24 07:17 Budesonide Rt 0.5 Mg/2 Ml Nebu INH 11/14/24 18:59 0.5 mg BIDRT TERESA Administration Dextrose 25 ml 10/11/24 23:36 Dextrose 50%-Water Inj 50 Ml Syringe IV 11/10/24 23:35 Q15MIN PRN BG 50-70 responsive npo pt Dextrose 50 ml 10/11/24 23:36 Dextrose 50%-Water Inj 50 Ml Syringe IV 11/10/24 23:35 Q15MIN PRN BG <50 OR BG <70 & pt unresponsive Diltiazem HCl 60 mg 10/18/24 11:00 10/22/24 05:21 Diltiazem 30 Mg Tablet PO 11/17/24 10:59 60 mg TID TERESA Administration Famotidine 20 mg 10/12/24 09:00 10/22/24 09:56 Famotidine 20 Mg Tablet PO 11/11/24 08:59 20 mg QDAY TERESA Administration Glucagon 1 mg 10/11/24 23:36 Glucagon Inj 1 Mg Vial IM Q15MIN PRN BG <70, and no IV access Piperacillin Sod/Tazobactam 50 mls @ 12.5 mls/hr 10/22/24 22:00 Sod 3.375 gm/ Sodium Chloride IV 10/29/24 21:59 Q8HR TERESA Piperacillin Sod/Tazobactam 50 mls @ 100 mls/hr 10/22/24 13:45 Sod 3.375 gm/ Sodium Chloride IV 10/22/24 14:14 X1 ONE Insulin Human Lispro 0 unit 10/12/24 07:30 10/22/24 11:39 Insulin Lispro (Admelog) 1 Unit/0.01 Ml Unit SC 11/11/24 07:29 Not Given ACHS [facility] Protocol Levothyroxine Sodium 50 mcg 10/12/24 06:00 10/22/24 05:22 Levothyroxine Sodium 25 Mcg Tablet PO 11/11/24 05:59 50 mcg ACBR TERESA Administration Metoprolol Succinate 100 mg 10/16/24 21:00 10/21/24 20:39 Metoprolol Succinate Xl 25 Mg Tabcr PO 11/15/24 20:59 100 mg HS TERESA Administration Ondansetron HCl 4 mg 10/11/24 23:24 Ondansetron Inj 2 Mg/Ml Inj 2 Ml IV 11/10/24 23:23 Q6H PRN NAUSEA OR VOMITING Protocol Prednisone 40 mg 10/20/24 09:00 10/22/24 09:56 Prednisone 20 Mg Tablet PO 10/25/24 08:59 40 mg QDAY TERESA Administration Sennosides 1 tab 10/15/24 12:04 10/15/24 20:06 Senna Tablet PO 11/14/24 12:03 1 tab QDAY PRN Administration CONSTIPATION Protocol Plan Mr. Rasheed Mayo is 79-year-old male PMHx of AAA 10 years ago s/p stenting, CAD with stents, A-fib, HTN, HLD, hypothyroidism, T2DM and GERD, presenting with fever, cough, SOB. Admitted for E coli pneumonia. #AHRF 2/2 E. coli PNA #Sepsis (resolved) 2/2 E. coli PNA Presenting with scott sputum cough, fever, and SOB x 3 days. Patient had aspiration event before arrival to hospital. Per at bedside, he had been smoking marijuana, followed by episode of emesis with coughing. Met sepsis with 2/3 SIRS criteria: tachypnea and leukocytosis, pneumonia likely source, endorgan damage (HOWARD). CXR showed bibasilar pneumonia. Basilar lung crackles and 1+ bilateral lower extremity edema on exam. BNP 206. PSI index 81 indicates class III risk. CURB-65 of 2 indicates Moderate risk. Sputum culture positive for E. coli. Patient completed course of azithromcyin and ceftriaxone (10/11-10/17) ? Continue DuoNebs q.6h. [employer]FF[employer]PER[employer]OR - Mucomyst q6HRRT ? Chest physio therapy with spirometry/acapella -prednisone 40mg -start Zosyn 3.375 mg TID because oxygen requirements have not significantly improved (5 day course until 10/26) -Lasix 20 mg IV #Type B thoracic aortic dissection, stable CT chest on 10/13 showed Thaddeus type B thoracic aortic dissection beginning distal to the left subclavian artery with aneurysmal dilatation ascending thoracic aorta and upper abdominal aorta Unsure at this time of dissection is new or old. Patient is denying any chest pain or back pain. Ios Developer Dr. Valerio consulted and recommends transfer for evaluation. -Recommendations to keep blood pressure less than 120/80 and heart rate around 70. -continue metoprolol 100 mg daily -Diltiazem 60 TID -Patient and family are willing to follow-up with cardiothoracic surgeon Dr. Tu Valadez from [facility]. (clinic number: [phone]) #Hx A-fib, rate controlled #Hx of AAA s/p stent #Hx of CAD s/p stent #HFmrEF, EF 40% Patient follows up with cardiology for annual screening in [place]. Last visit last week. Denies chest pain or palpitations. Troponin normal. Echo: Normal LV size. Global LV systolic function is mildly decreased. LVEF 40%. Hypokinetic mid-anterior septal wall motion. [id number] 5 point outweighs risk of bleed with HAS-BLED of 3. ? Continued home ASPIRIN 81 mg daily ? Continued home ELIQUIS 5 mg BID ? Continue home DILTIAZEM 60mg TID #Hx HTN #Hx HLD, #Hx hypothyroidism Home meds HCTZ 12.5 daily, LISINOPRIL 40 BID, METOPROLOL 50 mg daily, ROSUVASTATIN 40 mg. BP 145/78. ? Continue ATORVASTATIN 40 mg HS ? Holding HCTZ, LISINOPRIL in settings of HOWARD, consider restarting ? contiue METOPROLOL 100mg daily #History of type 2 diabetes, A1c 5.8 On admission initial glucose 140. Last A1c 6.0 on 06/11/2024. Patient takes metformin 500 daily, Tradjenta 5 mg daily for diabetes at home. A1c 10/12/2024 5.8 -Held home medications -Bedside blood glucose checks ACHS -Insulin lispro sliding scale -Carb consistent low diet #Mild hypernatremia-resolved #Prerenal HOWARD-resolved #GERD ? Continue home FAMOTIDINE 40 mg daily Health maintenance Diet: CHO consistent GI prophylaxis: famotadine DVT prophylaxis: ELIQUIS CODE STATUS: Full code Disposition: titrating HFNC The patient's management plan was discussed with my attending physician Dr. Eli and senior Dr. Cantor. Martha Canchola PGY1 Attending Provider Attestation/Addendum I have discussed and was present for the essential components of the history, physical examination, diagnosis, and treatment plan with the resident. I agree with the patient's care as documented by the resident and amended herein by me. Ferdinand Eli DO. Although this document has been carefully reviewed, there may still be some phonetic and other typographical errors. These errors are purely grammatical due to imperfections in the software program and should not be construed in any way to compromise the substance of the patient's medical care during this visit.
[2024-10-22] MEDS: FUROSEMIDE INJ 10 MG/ML VIAL 2 ML 20 MG IVP (14:02)
[2024-10-22] MEDS: PIPER/TAZO INJ 3.375 GM in SODIUM CHLORIDE 0.9% (P) 50 ML IV ×2 (14:03→20:59)
--- NOTE | 2024-10-22 14:29 | PC.SS ---
Rounding note: being treated for pneumonia, plan is to wean down O2.
[2024-10-22] MEDS: INSULIN LISPRO (AdmeLOG) 1 UNIT/0.01 ML UNIT SC ×2 (17:01→20:25)
[2024-10-22] MEDS: METOPROLOL SUCCINATE XL 25 MG TABCR 100 MG PO (20:29)
[2024-10-22] MEDS: ATORVASTATIN CALCIUM 20 MG TABLET 40 MG PO (20:29)
[2024-10-23] VITALS (20 sets, daily range): BP systolic 92–135; BP diastolic 46–69; PULSE 56–82; RESP 16–30; TEMP 36.2–36.4; O2SAT 92–98
[2024-10-23] MEDS: ALBUTEROL/IPRATROPIUM (Duoneb) RT SOL 3 ML NEBU INH ×4 (00:05→18:14)
[2024-10-23] MEDS: ACETYLCYSTEINE RT SOL 10% 4 ML NEBU 3 ML INH ×4 (00:05→18:13)
[2024-10-23] MEDS: DILTIAZEM 30 MG TABLET 60 MG PO ×2 (05:31→14:02)
[2024-10-23] MEDS: LEVOTHYROXINE SODIUM 25 MCG TABLET 50 MCG PO (05:32)
[2024-10-23] MEDS: PIPER/TAZO INJ 3.375 GM in SODIUM CHLORIDE 0.9% (P) 50 ML IV ×3 (05:32→21:32)
[2024-10-23 06:06] LABS: Basophils % (Auto) 0 % (0-2.5); Eosinophils % (Auto) 0 % (0-10); Hematocrit 30.7 % (41.0-53.0); Hemoglobin 10.1 g/dL (13.5-16.0); Immature Granulocytes % (Auto) 2 % (0-0); Immature Granulocytes Auto 0.24 Thou/mm3 (0.00-0.00); Lymphocytes # (Auto) 1.2 Thou/mm3 (1.0-4.8); Lymphocytes % (Auto) 9 % (10-50); Mean Corpuscular HGB Conc 32.9 g/dl (31.0-37.0); Mean Corpuscular Hemoglobin 30.3 pg (25.0-35.0); Mean Corpuscular Volume 92 fL (80-100); Monocytes # (Auto) 1.2 Thou/mm3 (0.0-0.8); Monocytes % (Auto) 9 % (0-12); Neutrophils % (Auto) 81 % (37-80); Nucleated Red Blood Cell % 0 /100 WBC (0); Platelet Count 360 Thou/mm3 (140-440); RDW Standard Deviation 45.7 fL (35.1-43.9); Red Blood Count 3.33 Miln/mm3 (4.50-5.90); White Blood Count 13.6 Thou/mm3 (3.8-10.6)
[2024-10-23 06:36] LABS: Anion Gap 8 (7-16); BUN/Creatinine Ratio 32 Ratio (12-20); Blood Urea Nitrogen 29 mg/dL (9-23); Calcium 9.1 mg/dL (8.3-10.6); Carbon Dioxide 27.3 mMol/L (20.0-31.0); Chloride 108 mMol/L (98-107); Creatinine (Component) 0.9 mg/dL (0.6-1.3); Estimated Creatinine Clearance 66.5 mL/min (>60); Glucose 148 mg/dL (74-106); Osmolality,Calculated 293 (275-295); Potassium 4.1 mMol/L (3.4-5.1); Sodium 143 mMol/L (136-145); eGFR > 60 See Note
[2024-10-23] MEDS: BUDESONIDE RT 0.5 MG/2 ML NEBU INH ×2 (06:45→18:14)
[2024-10-23] MEDS: ASPIRIN EC 81 MG TABEC PO (09:03)
[2024-10-23] MEDS: predniSONE 20 MG TABLET 40 MG PO (09:03)
[2024-10-23] MEDS: FAMOTIDINE 20 MG TABLET PO (09:03)
[2024-10-23] MEDS: APIXABAN 2.5 MG TABLET 5 MG PO ×2 (09:03→20:07)
[2024-10-23] MEDS: FUROSEMIDE INJ 10 MG/ML 4ML VIAL 40 MG IVP (09:05)
--- NOTE | 2024-10-23 09:20 | ESPR_ITS ---
<Statement entered by Roxana Cantor MD - 10/23/24 11:39> I discussed with and supervised my co-resident involved in the care of this patient. I agree with the assessment and plan as documented above. Patient seen and examined at bedside. Slight improvement in HFNC requirements, on Zosyn. Leukocytosis mild improvement. Added Lasix x1 to keep patient dry. Continue to titrate HFNC to goal NC < 5L. Roxana Cantor MD PGY-3 Documentation for date of: 10/23/24 Subjective Subjective Interval history: Patient seen and examined at bedside. No major complaints. Slight improvement in HFNC titration after starting patient on Zosyn 3.375 g TID (after completing ceftriaxone/azithromycin for 5 days last week) and IV Lasix 20 mg x1. Will give another IV lasix 40x1 as CXR shows some congestion. Today high flow nasal cannula at 38 L, 50% FiO2 saturating at 92%. Leukocytosis improved to 13. Vitals are stable. Continue to titrate O2, breathing treatment, CPT with spirometry/acapella, and steroids. Exam Vital Signs Temp Pulse Resp BP Pulse Ox O2 Del Method O2 Flow Rate 97.3 F 62 25 H 135/65 H 94 L BiPAP 38 10/23/24 08:00 10/23/24 09:05 10/23/24 08:00 10/23/24 09:05 10/23/24 08:00 10/23/24 08:00 10/23/24 08:00 FiO2 50 10/23/24 06:47 Narrative Exam General: Sitting comfortably in bed. No acute distress, cooperative Eyes: Pupils are equal and reactive to light bilaterally HENT: Atraumatic, normocephalic. No JVD noted. Mucosa moist. Cardiovascular: Normal S1 and S2. Regular rate and rhythm. Respiratory: b/L rhonchi, on 38L HFNC Abdomen: Soft, nontender, not distended, normal bowel sounds. Skin: Warm to touch, dry, no rashes noted, small bruises noted throughout extremities Musculoskeletal: No gross injuries. Able to move all 4 extremities. Neuro: Grossly intact Psych: Normal affect and mood Objective Labs 10/23/24 04:35 10/23/24 04:35 Labs: Laboratory Results - last 24 hr 10/23/24 04:35 WBC 13.6 H RBC 3.33 L Hgb 10.1 L Hct 30.7 L MCV 92 MCH 30.3 MCHC 32.9 RDW Std Deviation 45.7 H Plt Count 360 D Neut % (Auto) 81 H Lymph % (Auto) 9 L [place] % (Auto) 9 Eos % (Auto) 0 Baso % (Auto) 0 Neut # (Auto) 11.0 H Lymph # (Auto) 1.2 [place] # (Auto) 1.2 H Eos # (Auto) 0.0 Baso # (Auto) 0.0 Immature Gran # (Auto) 0.24 H Absolute Nucleated RBC 0.00 Immature Gran % 2 H Nucleated RBC % 0 Sodium 143 Potassium 4.1 Chloride 108 H Carbon Dioxide 27.3 Anion Gap 8 BUN 29 H Creatinine 0.9 Estim Creat Clear Calc 66.5 eGFR > 60 BUN/Creatinine Ratio 32 H Glucose 148 H Calculated Osmolality 293 Calcium 9.1 Quality Measures Quality Measures none Advance care planning discussed with:: patient Assessment & Plan Assessment Current Active Medications: Generic Name Dose Route Start Last Admin Trade Name Freq PRN Reason Stop Dose Admin Acetaminophen 650 mg 10/11/24 23:24 10/16/24 21:50 Acetaminophen 325 Mg Tablet PO 11/10/24 23:23 650 mg Q6H PRN Administration PAIN SCALE 1-3 (mild Acetaminophen 650 mg 10/11/24 23:24 Acetaminophen 325 Mg Tablet PO 11/10/24 23:23 Q6H PRN Fever >100 Acetylcysteine 3 ml 10/19/24 13:00 10/23/24 06:46 Acetylcysteine Rt [place] 10% 4 Ml Nebu INH 11/18/24 12:59 3 ml Q6HRRT TERESA Administration Albuterol/Ipratropium 3 ml 10/19/24 13:00 10/23/24 06:46 Albuterol/Ipratropium (Duoneb) Rt [place] 3 Ml Nebu INH 11/18/24 12:59 3 ml Q6HRRT TERESA Administration Apixaban 5 mg 10/11/24 23:45 10/23/24 09:03 Apixaban 2.5 Mg Tablet PO 11/10/24 23:44 5 mg BID TERESA Administration Aspirin 81 mg 10/12/24 09:00 10/23/24 09:03 Aspirin Ec 81 Mg Tabec PO 11/11/24 08:59 81 mg QDAY TERESA Administration Atorvastatin Calcium 40 mg 10/12/24 21:00 10/22/24 20:29 Atorvastatin Calcium 20 Mg Tablet PO 11/11/24 20:59 40 mg HS TERESA Administration Budesonide 0.5 mg 10/15/24 19:00 10/23/24 06:45 Budesonide Rt 0.5 Mg/2 Ml Nebu INH 11/14/24 18:59 0.5 mg BIDRT TERESA Administration Dextrose 25 ml 10/11/24 23:36 Dextrose 50%-Water Inj 50 Ml Syringe IV 11/10/24 23:35 Q15MIN PRN BG 50-70 responsive npo pt Dextrose 50 ml 10/11/24 23:36 Dextrose 50%-Water Inj 50 Ml Syringe IV 11/10/24 23:35 Q15MIN PRN BG <50 OR BG <70 & pt unresponsive Diltiazem HCl 60 mg 10/18/24 11:00 10/23/24 05:31 Diltiazem 30 Mg Tablet PO 11/17/24 10:59 60 mg TID TERESA Administration Famotidine 20 mg 10/12/24 09:00 10/23/24 09:03 Famotidine 20 Mg Tablet PO 11/11/24 08:59 20 mg QDAY TERESA Administration Glucagon 1 mg 10/11/24 23:36 Glucagon Inj 1 Mg Vial IM Q15MIN PRN BG <70, and no IV access Piperacillin Sod/Tazobactam 50 mls @ 12.5 mls/hr 10/22/24 22:00 10/23/24 05:32 Sod 3.375 gm/ Sodium Chloride IV 10/29/24 21:59 12.5 mls/hr Q8HR TERESA Administration Insulin Human Lispro 0 unit 10/12/24 07:30 10/23/24 07:37 Insulin Lispro (Admelog) 1 Unit/0.01 Ml Unit SC 11/11/24 07:29 Not Given ACHS [facility] Protocol Levothyroxine Sodium 50 mcg 10/12/24 06:00 10/23/24 05:32 Levothyroxine Sodium 25 Mcg Tablet PO 11/11/24 05:59 50 mcg ACBR TERESA Administration Metoprolol Succinate 100 mg 10/16/24 21:00 10/22/24 20:29 Metoprolol Succinate Xl 25 Mg Tabcr PO 11/15/24 20:59 100 mg HS TERESA Administration Ondansetron HCl 4 mg 10/11/24 23:24 Ondansetron Inj 2 Mg/Ml Inj 2 Ml IV 11/10/24 23:23 Q6H PRN NAUSEA OR VOMITING Protocol Prednisone 40 mg 10/20/24 09:00 10/23/24 09:03 Prednisone 20 Mg Tablet PO 10/25/24 08:59 40 mg QDAY TERESA Administration Sennosides 1 tab 10/15/24 12:04 10/15/24 20:06 Senna Tablet PO 11/14/24 12:03 1 tab QDAY PRN Administration CONSTIPATION Protocol Plan Mr. Rasheed Mayo is 79-year-old male PMHx of AAA 10 years ago s/p stenting, CAD with stents, A-fib, HTN, HLD, hypothyroidism, T2DM and GERD, presenting with fever, cough, SOB. Admitted for E coli pneumonia. #AHRF 2/2 E. coli PNA #Sepsis (resolved) 2/2 E. coli PNA Presenting with scott sputum cough, fever, and SOB x 3 days. Patient had aspiration event before arrival to hospital. Per at bedside, he had been smoking marijuana, followed by episode of emesis with coughing. Met sepsis with 2/3 SIRS criteria: tachypnea and leukocytosis, pneumonia likely source, endorgan damage (HOWARD). CXR showed bibasilar pneumonia. Basilar lung crackles and 1+ bilateral lower extremity edema on exam. BNP 206. PSI index 81 indicates class III risk. CURB-65 of 2 indicates Moderate risk. Sputum culture positive for E. coli. Patient completed course of azithromcyin and ceftriaxone (10/11-10/17) ? Continue DuoNebs q.6h. 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 Chest physio therapy with spirometry/acapella -prednisone 40mg -continue Zosyn 3.375 mg TID because oxygen requirements have not significantly improved (5 day course until 10/26) -IV Lasix 40mg x1 today #Type B thoracic aortic dissection, stable CT chest on 10/13 showed Thaddeus type B thoracic aortic dissection beginning distal to the left subclavian artery with aneurysmal dilatation ascending thoracic aorta and upper abdominal aorta Unsure at this time of dissection is new or old. Patient is denying any chest pain or back pain. Banking Attorney Dr. Valerio consulted and recommends transfer for evaluation. -Recommendations to keep blood pressure less than 120/80 and heart rate around 70. -continue metoprolol 100 mg daily -Diltiazem 60 TID -Patient and family are willing to follow-up with cardiothoracic surgeon Dr. Tu Valadez from [facility]. (clinic number: [phone]) #Hx A-fib, rate controlled #Hx of AAA s/p stent #Hx of CAD s/p stent #HFmrEF, EF 40% Patient follows up with cardiology for annual screening in [place]. Last visit last week. Denies chest pain or palpitations. Troponin normal. Echo 10/11/24: Normal LV size. Global LV systolic function is mildly decreased. LVEF 40%. Hypokinetic mid-anterior septal wall motion. [id number] 5 point outweighs risk of bleed with HAS-BLED of 3. ? Continued home ASPIRIN 81 mg daily ? Continued home ELIQUIS 5 mg BID ? Continue home DILTIAZEM 60mg TID #Hx HTN #Hx HLD, #Hx hypothyroidism Home meds HCTZ 12.5 daily, LISINOPRIL 40 BID, METOPROLOL 50 mg daily, ROSUVASTATIN 40 mg. BP 145/78. ? Continue ATORVASTATIN 40 mg HS -continue lisinopril 40mg BID ? Holding HCTZ ? contiue METOPROLOL 100mg daily #History of type 2 diabetes, A1c 5.8 On admission initial glucose 140. Last A1c 6.0 on 06/11/2024. Patient takes metformin 500 daily, Tradjenta 5 mg daily for diabetes at home. A1c 10/12/2024 5.8 -Held home medications -Bedside blood glucose checks ACHS -Insulin lispro sliding scale -Carb consistent low diet #Mild hypernatremia-resolved #Prerenal HOWARD-resolved #GERD ? Continue home FAMOTIDINE 40 mg daily Health maintenance Diet: CHO consistent GI prophylaxis: famotadine DVT prophylaxis: ELIQUIS CODE STATUS: Full code Disposition: titrating HFNC The patient's management plan was discussed with my attending physician Dr. Eli and senior Dr. Cantor. Martha Canchola PGY1 Attending Provider Attestation/Addendum I have discussed and was present for the essential components of the history, physical examination, diagnosis, and treatment plan with the resident. I agree with the patient's care as documented by the resident and amended herein by me. Ferdinand Eli DO. Patient seen and evaluated this AM. No acute events overnight, patient remains on high flow although at a decreased amount, 38/50, SpO2 95% at time of bedside visit. WBC down trended to 13, hemoglobin stable at 10, other labs largely unremarkable. Will give an additional Lasix dose today 40 mg IV, continue to titrate O2 and continue steroids and antibiotics at this time. Patient feels well has no subjective complaints, once we can titrate down the O2 patient can be discharged home. Although this document has been carefully reviewed, there may still be some phonetic and other typographical errors. These errors are purely grammatical due to imperfections in the software program and should not be construed in any way to compromise the substance of the patient's medical care during this visit.
--- NOTE | 2024-10-23 10:38 | PC.CC ---
SS spoke to pt , Eileen Mayo [phone] in regards to HH. Per Mrs. Mayo they do not have a preference for HH agency. She requested PT and OT. HH: No Preference Address: [address] PCP: Cristobal Chowdhury (last visit 3 months ago) had appointment for last week but was hospitalized.
--- NOTE | 2024-10-23 10:43 | PC.CC ---
Pt info entered into [employer]
[2024-10-23] MEDS: INSULIN LISPRO (AdmeLOG) 1 UNIT/0.01 ML UNIT SC ×3 (11:56→20:09)
[2024-10-23] MEDS: Lisinopril 20 MG TABLET 40 MG PO ×2 (11:56→20:07)
--- NOTE | 2024-10-23 14:49 | PC.SS ---
SS update: patient remains on highflow O2.
[2024-10-23] MEDS: ACETAMINOPHEN 325 MG TABLET 650 MG PO (19:48)
[2024-10-23] MEDS: ATORVASTATIN CALCIUM 20 MG TABLET 40 MG PO (20:07)
[2024-10-24] VITALS (19 sets, daily range): BP systolic 99–123; BP diastolic 55–71; PULSE 60–112; RESP 15–26; TEMP 36–36.6; O2SAT 90–99
[2024-10-24] MEDS: ALBUTEROL/IPRATROPIUM (Duoneb) RT SOL 3 ML NEBU INH ×4 (00:14→18:19)
[2024-10-24] MEDS: ACETYLCYSTEINE RT SOL 10% 4 ML NEBU 3 ML INH ×2 (00:14→06:31)
[2024-10-24] MEDS: PIPER/TAZO INJ 3.375 GM in SODIUM CHLORIDE 0.9% (P) 50 ML IV ×3 (05:07→21:17)
[2024-10-24] MEDS: LEVOTHYROXINE SODIUM 25 MCG TABLET 50 MCG PO (05:08)
[2024-10-24] MEDS: DILTIAZEM 30 MG TABLET 60 MG PO ×3 (05:09→21:20)
[2024-10-24 05:43] LABS: Basophils % (Auto) 0 % (0-2.5); Eosinophils % (Auto) 0 % (0-10); Hematocrit 30.5 % (41.0-53.0); Immature Granulocytes % (Auto) 2 % (0-0); Immature Granulocytes Auto 0.22 Thou/mm3 (0.00-0.00); Lymphocytes # (Auto) 1.2 Thou/mm3 (1.0-4.8); Lymphocytes % (Auto) 10 % (10-50); Mean Corpuscular HGB Conc 32.8 g/dl (31.0-37.0); Mean Corpuscular Hemoglobin 29.9 pg (25.0-35.0); Mean Corpuscular Volume 91 fL (80-100); Monocytes # (Auto) 1.3 Thou/mm3 (0.0-0.8); Monocytes % (Auto) 10 % (0-12); Neutrophils % (Auto) 78 % (37-80); Nucleated Red Blood Cell % 0 /100 WBC (0); Platelet Count 401 Thou/mm3 (140-440); RDW Standard Deviation 44.5 fL (35.1-43.9); Red Blood Count 3.34 Miln/mm3 (4.50-5.90); White Blood Count 12.7 Thou/mm3 (3.8-10.6)
[2024-10-24 06:16] LABS: Anion Gap 9 (7-16); BUN/Creatinine Ratio 32 Ratio (12-20); Blood Urea Nitrogen 35 mg/dL (9-23); Calcium 8.7 mg/dL (8.3-10.6); Carbon Dioxide 28.5 mMol/L (20.0-31.0); Chloride 107 mMol/L (98-107); Creatinine (Component) 1.1 mg/dL (0.6-1.3); Estimated Creatinine Clearance 54.4 mL/min (>60); Glucose 170 mg/dL (74-106); Osmolality,Calculated 298 (275-295); Potassium 3.8 mMol/L (3.4-5.1); Sodium 144 mMol/L (136-145); eGFR > 60 See Note
[2024-10-24] MEDS: BUDESONIDE RT 0.5 MG/2 ML NEBU INH ×2 (06:32→18:19)
[2024-10-24] MEDS: Lisinopril 20 MG TABLET 40 MG PO (08:14)
[2024-10-24] MEDS: predniSONE 20 MG TABLET 40 MG PO (08:14)
[2024-10-24] MEDS: APIXABAN 2.5 MG TABLET 5 MG PO ×2 (08:14→21:18)
[2024-10-24] MEDS: FAMOTIDINE 20 MG TABLET PO (08:14)
[2024-10-24] MEDS: ASPIRIN EC 81 MG TABEC PO (08:14)
--- NOTE | 2024-10-24 10:17 | CHAP ---
Patient was visited by the Spiritual Care Volunteer who prayed for them. (Volunteer was in the hospital from 09:20-10:17)
[2024-10-24] MEDS: INSULIN LISPRO (AdmeLOG) 1 UNIT/0.01 ML UNIT SC ×3 (11:55→21:12)
--- NOTE | 2024-10-24 13:41 | ESPR_ITS ---
<Statement entered by Roxana Cantor MD - 10/24/24 17:30> I discussed with and supervised my co-resident involved in the care of this patient. I agree with the assessment and plan as documented above. Patient doing well today. HFNC requirements improvement, down to 35L and 35%. Patient says he feels about the same. On IV antibiotics (Zosyn). Will get labs QOD. Roxana Cantor MD PGY-3 Documentation for date of: 10/24/24 Subjective Subjective Interval history: Patient seen and examined at bedside. No major complaints. Improvement in HFNC. Today 35L, 40% FiO2, 96% saturation. Leukocytosis improved to 13.9. Vitals are stable. Continue to titrate O2, breathing treatment, CPT with spirometry/acapella, and steroids. Daily labs will continue every other day. Exam Vital Signs Temp Pulse Resp BP Pulse Ox O2 Del Method O2 Flow Rate 97.4 F 112 H 17 99/55 L 99 High Flow Nasal Cannula 35 10/24/24 11:31 10/24/24 12:44 10/24/24 12:44 10/24/24 11:31 10/24/24 12:44 10/24/24 11:31 10/24/24 12:44 FiO2 35 10/24/24 12:44 Narrative Exam General: Sitting comfortably chair. No acute distress, cooperative Eyes: Pupils are equal and reactive to light bilaterally HENT: Atraumatic, normocephalic. No JVD noted. Mucosa moist. Cardiovascular: Normal S1 and S2. Regular rate and rhythm. Respiratory: b/L rhonchi, on 35L HFNC Abdomen: Soft, nontender, not distended, normal bowel sounds. Skin: Warm to touch, dry, no rashes noted, small bruises noted throughout extremities Musculoskeletal: No gross injuries. Able to move all 4 extremities. Neuro: Grossly intact Psych: Normal affect and mood Objective Labs 10/24/24 04:32 10/24/24 04:32 Labs: Laboratory Results - last 24 hr 10/24/24 04:32 WBC 12.7 H RBC 3.34 L Hgb 10.0 L Hct 30.5 L MCV 91 MCH 29.9 MCHC 32.8 RDW Std Deviation 44.5 H Plt Count 401 D Neut % (Auto) 78 Lymph % (Auto) 10 [place] % (Auto) 10 Eos % (Auto) 0 Baso % (Auto) 0 Neut # (Auto) 10.0 H Lymph # (Auto) 1.2 [place] # (Auto) 1.3 H Eos # (Auto) 0.0 Baso # (Auto) 0.0 Immature Gran # (Auto) 0.22 H Absolute Nucleated RBC 0.00 Immature Gran % 2 H Nucleated RBC % 0 Sodium 144 Potassium 3.8 Chloride 107 Carbon Dioxide 28.5 Anion Gap 9 BUN 35 H Creatinine 1.1 Estim Creat Clear Calc 54.4 L eGFR > 60 BUN/Creatinine Ratio 32 H Glucose 170 H Calculated Osmolality 298 H Calcium 8.7 Quality Measures Quality Measures none Advance care planning discussed with:: patient Assessment & Plan Assessment Current Active Medications: Generic Name Dose Route Start Last Admin Trade Name Freq PRN Reason Stop Dose Admin Acetaminophen 650 mg 10/11/24 23:24 10/23/24 19:48 Acetaminophen 325 Mg Tablet PO 11/10/24 23:23 650 mg Q6H PRN Administration PAIN SCALE 1-3 (mild Acetaminophen 650 mg 10/11/24 23:24 Acetaminophen 325 Mg Tablet PO 11/10/24 23:23 Q6H PRN Fever >100 Albuterol/Ipratropium 3 ml 10/19/24 13:00 10/24/24 12:41 Albuterol/Ipratropium (Duoneb) Rt Yesenia 3 Ml Nebu INH 11/18/24 12:59 3 ml Q6HRRT TERESA Administration Apixaban 5 mg 10/11/24 23:45 10/24/24 08:14 Apixaban 2.5 Mg Tablet PO 11/10/24 23:44 5 mg BID TERESA Administration Aspirin 81 mg 10/12/24 09:00 10/24/24 08:14 Aspirin Ec 81 Mg Tabec PO 11/11/24 08:59 81 mg QDAY TERESA Administration Atorvastatin Calcium 40 mg 10/12/24 21:00 10/23/24 20:07 Atorvastatin Calcium 20 Mg Tablet PO 11/11/24 20:59 40 mg HS TERESA Administration Budesonide 0.5 mg 10/15/24 19:00 10/24/24 06:32 Budesonide Rt 0.5 Mg/2 Ml Nebu INH 11/14/24 18:59 0.5 mg BIDRT TERESA Administration Dextrose 25 ml 10/11/24 23:36 Dextrose 50%-Water Inj 50 Ml Syringe IV 11/10/24 23:35 Q15MIN PRN BG 50-70 responsive npo pt Dextrose 50 ml 10/11/24 23:36 Dextrose 50%-Water Inj 50 Ml Syringe IV 11/10/24 23:35 Q15MIN PRN BG <50 OR BG <70 & pt unresponsive Diltiazem HCl 60 mg 10/18/24 11:00 10/24/24 05:09 Diltiazem 30 Mg Tablet PO 11/17/24 10:59 60 mg TID TERESA Administration Famotidine 20 mg 10/12/24 09:00 10/24/24 08:14 Famotidine 20 Mg Tablet PO 11/11/24 08:59 20 mg QDAY TERESA Administration Glucagon 1 mg 10/11/24 23:36 Glucagon Inj 1 Mg Vial IM Q15MIN PRN BG <70, and no IV access Piperacillin Sod/Tazobactam 50 mls @ 12.5 mls/hr 10/22/24 22:00 10/24/24 05:07 Sod 3.375 gm/ Sodium Chloride IV 10/29/24 21:59 12.5 mls/hr Q8HR TERESA Administration Insulin Human Lispro 0 unit 10/12/24 07:30 10/24/24 11:55 Insulin Lispro (Admelog) 1 Unit/0.01 Ml Unit SC 11/11/24 07:29 1 unit ACHS TERESA Administration Protocol Levothyroxine Sodium 50 mcg 10/12/24 06:00 10/24/24 05:08 Levothyroxine Sodium 25 Mcg Tablet PO 11/11/24 05:59 50 mcg ACBR TERESA Administration Lisinopril 40 mg 10/23/24 11:45 10/24/24 08:14 Lisinopril 20 Mg Tablet PO 11/22/24 11:44 40 mg BID TERESA Administration Metoprolol Succinate 100 mg 10/16/24 21:00 10/23/24 20:13 Metoprolol Succinate Xl 25 Mg Tabcr PO 11/15/24 20:59 Not Given HS TERESA Ondansetron HCl 4 mg 10/11/24 23:24 Ondansetron Inj 2 Mg/Ml Inj 2 Ml IV 11/10/24 23:23 Q6H PRN NAUSEA OR VOMITING Protocol Prednisone 40 mg 10/20/24 09:00 10/24/24 08:14 Prednisone 20 Mg Tablet PO 10/25/24 08:59 40 mg QDAY TERESA Administration Sennosides 1 tab 10/15/24 12:04 10/15/24 20:06 Senna Tablet PO 11/14/24 12:03 1 tab QDAY PRN Administration CONSTIPATION Protocol Plan Mr. Rasheed Mayo is 79-year-old male PMHx of AAA 10 years ago s/p stenting, CAD with stents, A-fib, HTN, HLD, hypothyroidism, T2DM and GERD, presenting with fever, cough, SOB. Admitted for E coli pneumonia. #AHRF 2/2 E. coli PNA #Sepsis (resolved) 2/2 E. coli PNA Presenting with scott sputum cough, fever, and SOB x 3 days. Patient had aspiration event before arrival to hospital. Per at bedside, he had been smoking marijuana, followed by episode of emesis with coughing. Met sepsis with 2/3 SIRS criteria: tachypnea and leukocytosis, pneumonia likely source, endorgan damage (HOWARD). CXR showed bibasilar pneumonia. Basilar lung crackles and 1+ bilateral lower extremity edema on exam. BNP 206. PSI index 81 indicates class III risk. CURB-65 of 2 indicates Moderate risk. Sputum culture positive for E. coli. Patient completed course of azithromcyin and ceftriaxone (10/11-10/17) ? 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 Chest physio therapy with spirometry/acapella -prednisone 40mg -continue Zosyn 3.375 mg TID because oxygen requirements have not significantly improved (5 day course until 10/26) -titrate O2 -PT #Type B thoracic aortic dissection, stable CT chest on 10/13 showed Thaddeus type B thoracic aortic dissection beginning distal to the left subclavian artery with aneurysmal dilatation ascending thoracic aorta and upper abdominal aorta Unsure at this time of dissection is new or old. Patient is denying any chest pain or back pain. Quality Assurance/R&D Lab Technician Dr. Valerio consulted and recommends transfer for evaluation. -Recommendations to keep blood pressure less than 120/80 and heart rate around 70. -continue metoprolol 100 mg daily -Diltiazem 60 TID -Patient and family are willing to follow-up with cardiothoracic surgeon Dr. Tu Valadez from [facility]. (clinic number: [phone]) #Hx A-fib, rate controlled #Hx of AAA s/p stent #Hx of CAD s/p stent #HFmrEF, EF 40% Patient follows up with cardiology for annual screening in [place]. Last visit last week. Denies chest pain or palpitations. Troponin normal. Echo 10/11/24: Normal LV size. Global LV systolic function is mildly decreased. LVEF 40%. Hypokinetic mid-anterior septal wall motion. [id number] 5 point outweighs risk of bleed with HAS-BLED of 3. ? Continued home ASPIRIN 81 mg daily ? Continued home ELIQUIS 5 mg BID ? Continue home DILTIAZEM 60mg TID #Hx HTN #Hx HLD, #Hx hypothyroidism Home meds HCTZ 12.5 daily, LISINOPRIL 40 BID, METOPROLOL 50 mg daily, ROSUVASTATIN 40 mg. BP 145/78. ? Continue ATORVASTATIN 40 mg HS -continue lisinopril 40mg BID ? Holding HCTZ ? contiue METOPROLOL 100mg daily #History of type 2 diabetes, A1c 5.8 On admission initial glucose 140. Last A1c 6.0 on 06/11/2024. Patient takes metformin 500 daily, Tradjenta 5 mg daily for diabetes at home. A1c 10/12/2024 5.8 -Held home medications -Bedside blood glucose checks ACHS -Insulin lispro sliding scale -Carb consistent low diet #Mild hypernatremia-resolved #Prerenal HOWARD-resolved #GERD ? Continue home FAMOTIDINE 40 mg daily Health maintenance Diet: CHO consistent GI prophylaxis: famotadine DVT prophylaxis: ELIQUIS CODE STATUS: Full code Disposition: titrating HFNC The patient's management plan was discussed with my attending physician Dr. Eli and senior Dr. Cantor. Martha Canchola PGY1 Attending Provider Attestation/Addendum I have discussed and was present for the essential components of the history, physical examination, diagnosis, and treatment plan with the resident. I agree with the patient's care as documented by the resident and amended herein by me. Ferdinand Eli DO. Although this document has been carefully reviewed, there may still be some phonetic and other typographical errors. These errors are purely grammatical due to imperfections in the software program and should not be construed in any way to compromise the substance of the patient's medical care during this visit.
[2024-10-24] MEDS: ATORVASTATIN CALCIUM 20 MG TABLET 40 MG PO (21:18)
[2024-10-24] MEDS: METOPROLOL SUCCINATE XL 25 MG TABCR 100 MG PO (21:19)
[2024-10-25] VITALS (18 sets, daily range): BP systolic 106–127; BP diastolic 54–69; PULSE 55–101; RESP 14–27; TEMP 35.9–36.6; O2SAT 90–98
[2024-10-25] MEDS: ALBUTEROL/IPRATROPIUM (Duoneb) RT SOL 3 ML NEBU INH ×3 (00:27→14:25)
[2024-10-25] MEDS: LEVOTHYROXINE SODIUM 25 MCG TABLET 50 MCG PO (05:53)
[2024-10-25] MEDS: DILTIAZEM 30 MG TABLET 60 MG PO ×3 (05:53→21:45)
[2024-10-25] MEDS: PIPER/TAZO INJ 3.375 GM in SODIUM CHLORIDE 0.9% (P) 50 ML IV (05:53)
[2024-10-25] MEDS: BUDESONIDE RT 0.5 MG/2 ML NEBU INH (06:22)
[2024-10-25] MEDS: APIXABAN 2.5 MG TABLET 5 MG PO ×2 (08:57→21:47)
[2024-10-25] MEDS: ASPIRIN EC 81 MG TABEC PO (08:58)
[2024-10-25] MEDS: FAMOTIDINE 20 MG TABLET PO (08:58)
--- NOTE | 2024-10-25 13:32 | ESPR_ITS ---
Documentation for date of: 10/25/24 Subjective Subjective Interval history: Patient seen at bedside. No overnight events. No complaints. Today HFNC at 32L, 35FiO2, 91% o2. Is working with PT. States that oxygen tanks to 85% when sitting up to ambulate. Will stop Zosyn has patient is not exhibiting worsening symptoms. Continue to titrate O2, breathing treatment, CPT with spirometry/acapella, and steroids. Exam Vital Signs Temp Pulse Resp BP Pulse Ox O2 Del Method O2 Flow Rate 96.7 F L 60 26 H 113/54 L 96 High Flow Nasal Cannula 32 10/25/24 12:00 10/25/24 12:00 10/25/24 12:00 10/25/24 12:00 10/25/24 12:00 10/25/24 12:00 10/25/24 12:00 FiO2 35 10/25/24 12:00 Narrative Exam General: Sitting comfortably chair. No acute distress, cooperative Eyes: Pupils are equal and reactive to light bilaterally HENT: Atraumatic, normocephalic. No JVD noted. Mucosa moist. Cardiovascular: Normal S1 and S2. Regular rate and rhythm. Respiratory: b/L rhonchi, on 35L HFNC Abdomen: Soft, nontender, not distended, normal bowel sounds. Skin: Warm to touch, dry, no rashes noted, small bruises noted throughout extremities Musculoskeletal: No gross injuries. Able to move all 4 extremities. Neuro: Grossly intact Psych: Normal affect and mood Objective Labs 10/24/24 04:32 10/24/24 04:32 Quality Measures Quality Measures none Advance care planning discussed with:: patient Assessment & Plan Assessment Current Active Medications: Generic Name Dose Route Start Last Admin Trade Name Freq PRN Reason Stop Dose Admin Acetaminophen 650 mg 10/11/24 23:24 10/23/24 19:48 Acetaminophen 325 Mg Tablet PO 11/10/24 23:23 650 mg Q6H PRN Administration PAIN SCALE 1-3 (mild Acetaminophen 650 mg 10/11/24 23:24 Acetaminophen 325 Mg Tablet PO 11/10/24 23:23 Q6H PRN Fever >100 Albuterol/Ipratropium 3 ml 10/19/24 13:00 10/25/24 06:22 Albuterol/Ipratropium (Duoneb) Rt Yesenia 3 Ml Nebu INH 11/18/24 12:59 3 ml Q6HRRT TERESA Administration Apixaban 5 mg 10/11/24 23:45 10/25/24 08:57 Apixaban 2.5 Mg Tablet PO 11/10/24 23:44 5 mg BID TERESA Administration Aspirin 81 mg 10/12/24 09:00 10/25/24 08:58 Aspirin Ec 81 Mg Tabec PO 11/11/24 08:59 81 mg QDAY TERESA Administration Atorvastatin Calcium 40 mg 10/12/24 21:00 10/24/24 21:18 Atorvastatin Calcium 20 Mg Tablet PO 11/11/24 20:59 40 mg HS TERESA Administration Budesonide 0.5 mg 10/15/24 19:00 10/25/24 06:22 Budesonide Rt 0.5 Mg/2 Ml Nebu INH 11/14/24 18:59 0.5 mg BIDRT TERESA Administration Dextrose 25 ml 10/11/24 23:36 Dextrose 50%-Water Inj 50 Ml Syringe IV 11/10/24 23:35 Q15MIN PRN BG 50-70 responsive npo pt Dextrose 50 ml 10/11/24 23:36 Dextrose 50%-Water Inj 50 Ml Syringe IV 11/10/24 23:35 Q15MIN PRN BG <50 OR BG <70 & pt unresponsive Diltiazem HCl 60 mg 10/18/24 11:00 10/25/24 05:53 Diltiazem 30 Mg Tablet PO 11/17/24 10:59 60 mg TID TERESA Administration Famotidine 20 mg 10/12/24 09:00 10/25/24 08:58 Famotidine 20 Mg Tablet PO 11/11/24 08:59 20 mg QDAY TERESA Administration Glucagon 1 mg 10/11/24 23:36 Glucagon Inj 1 Mg Vial IM Q15MIN PRN BG <70, and no IV access Insulin Human Lispro 0 unit 10/12/24 07:30 10/25/24 11:42 Insulin Lispro (Admelog) 1 Unit/0.01 Ml Unit SC 11/11/24 07:29 Not Given ACHS TERESA Protocol Levothyroxine Sodium 50 mcg 10/12/24 06:00 10/25/24 05:53 Levothyroxine Sodium 25 Mcg Tablet PO 11/11/24 05:59 50 mcg ACBR TERESA Administration Metoprolol Succinate 100 mg 10/16/24 21:00 10/24/24 21:19 Metoprolol Succinate Xl 25 Mg Tabcr PO 11/15/24 20:59 100 mg HS TERESA Administration Ondansetron HCl 4 mg 10/11/24 23:24 Ondansetron Inj 2 Mg/Ml Inj 2 Ml IV 11/10/24 23:23 Q6H PRN NAUSEA OR VOMITING Protocol Sennosides 1 tab 10/15/24 12:04 10/15/24 20:06 Senna Tablet PO 11/14/24 12:03 1 tab QDAY PRN Administration CONSTIPATION Protocol Plan Mr. Rasheed Mayo is 79-year-old male PMHx of AAA 10 years ago s/p stenting, CAD with stents, A-fib, HTN, HLD, hypothyroidism, T2DM and GERD, presenting with fever, cough, SOB. Admitted for E coli pneumonia. #AHRF 2/2 E. coli PNA #Sepsis (resolved) 2/2 E. coli PNA Presenting with scott sputum cough, fever, and SOB x 3 days. Patient had aspiration event before arrival to hospital. Per at bedside, he had been smoking marijuana, followed by episode of emesis with coughing. Met sepsis with 2/3 SIRS criteria: tachypnea and leukocytosis, pneumonia likely source, endorgan damage (HOWARD). CXR showed bibasilar pneumonia. Basilar lung crackles and 1+ bilateral lower extremity edema on exam. BNP 206. PSI index 81 indicates class III risk. CURB-65 of 2 indicates Moderate risk. Sputum culture positive for E. coli. Patient completed course of azithromcyin and ceftriaxone (10/11-10/17) ? 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 Chest physio therapy with spirometry/acapella -prednisone 40mg (until 10/30) -stop Zosyn 3.375 mg TID -titrate O2 -PT #Type B thoracic aortic dissection, stable CT chest on 10/13 showed Thaddeus type B thoracic aortic dissection beginning distal to the left subclavian artery with aneurysmal dilatation ascending thoracic aorta and upper abdominal aorta Unsure at this time of dissection is new or old. Patient is denying any chest pain or back pain. Program Support Clerk Dr. Valerio consulted and recommends transfer for evaluation. -Recommendations to keep blood pressure less than 120/80 and heart rate around 70. -continue metoprolol 100 mg daily -Diltiazem 60 TID -Patient and family are willing to follow-up with cardiothoracic surgeon Dr. Tu Valadez from [facility]. (clinic number: [phone]) #Hx A-fib, rate controlled #Hx of AAA s/p stent #Hx of CAD s/p stent #HFmrEF, EF 40% Patient follows up with cardiology for annual screening in [place]. Last visit last week. Denies chest pain or palpitations. Troponin normal. Echo 10/11/24: Normal LV size. Global LV systolic function is mildly decreased. LVEF 40%. Hypokinetic mid-anterior septal wall motion. [id number] 5 point outweighs risk of bleed with HAS-BLED of 3. ? Continued home ASPIRIN 81 mg daily ? Continued home ELIQUIS 5 mg BID ? Continue home DILTIAZEM 60mg TID #Hx HTN #Hx HLD, #Hx hypothyroidism Home meds HCTZ 12.5 daily, LISINOPRIL 40 BID, METOPROLOL 50 mg daily, ROSUVASTATIN 40 mg. BP 145/78. ? Continue ATORVASTATIN 40 mg HS -continue lisinopril 40mg BID ? Holding HCTZ ? contiue METOPROLOL 100mg daily #History of type 2 diabetes, A1c 5.8 On admission initial glucose 140. Last A1c 6.0 on 06/11/2024. Patient takes metformin 500 daily, Tradjenta 5 mg daily for diabetes at home. A1c 10/12/2024 5.8 -Held home medications -Bedside blood glucose checks ACHS -Insulin lispro sliding scale -Carb consistent low diet #Mild hypernatremia-resolved #Prerenal HOWARD-resolved #GERD ? Continue home FAMOTIDINE 40 mg daily Health maintenance Diet: CHO consistent GI prophylaxis: famotadine DVT prophylaxis: ELIQUIS CODE STATUS: Full code Disposition: titrating HFNC The patient's management plan was discussed with my attending physician Dr. Eli. Martha Canchola PGY1 Attending Provider Attestation/Addendum I have discussed and was present for the essential components of the history, physical examination, diagnosis, and treatment plan with the resident. I agree with the patient's care as documented by the resident and amended herein by me. Ferdinand Eli DO. Patient seen and evaluated this AM. Vital signs stable, patient afebrile overnight, remains on high flow NC, 32/35, SpO2 98% at time of bedside visit. No labs today, labs can be done every other day at this point. We will continue steroids and discontinue the Zosyn at this time. Will also continue metoprolol, Eliquis and aspirin daily as well as diltiazem, lisinopril and atorvastatin which the patient has been on. I did explain to the patient and his who is at bedside that this is a very slow process to wean off the oxygen and the importance of continued tobacco sensation to minimize the progression of likely COPD and further lung damage. The patient understood and is amenable to the plan, will continue to monitor closely while he is here. Although this document has been carefully reviewed, there may still be some phonetic and other typographical errors. These errors are purely grammatical due to imperfections in the software program and should not be construed in any way to compromise the substance of the patient's medical care during this visit.
[2024-10-25] MEDS: predniSONE 20 MG TABLET 40 MG PO (14:40)
[2024-10-25] MEDS: INSULIN LISPRO (AdmeLOG) 1 UNIT/0.01 ML UNIT SC ×2 (17:50→21:49)
[2024-10-25] MEDS: METOPROLOL SUCCINATE XL 25 MG TABCR 100 MG PO (21:46)
[2024-10-25] MEDS: ATORVASTATIN CALCIUM 20 MG TABLET 40 MG PO (21:47)
[2024-10-26] VITALS (15 sets, daily range): BP systolic 109–154; BP diastolic 61–76; PULSE 6–76; RESP 16–24; TEMP 35.8–36.4; O2SAT 91–97
[2024-10-26] MEDS: ALBUTEROL/IPRATROPIUM (Duoneb) RT SOL 3 ML NEBU INH ×2 (01:14→06:17)
[2024-10-26] MEDS: LEVOTHYROXINE SODIUM 25 MCG TABLET 50 MCG PO (05:32)
[2024-10-26] MEDS: DILTIAZEM 30 MG TABLET 60 MG PO ×3 (05:32→21:17)
[2024-10-26 05:50] LABS: Basophils % (Auto) 0 % (0-2.5); Eosinophils % (Auto) 0 % (0-10); Hematocrit 32.5 % (41.0-53.0); Hemoglobin 10.5 g/dL (13.5-16.0); Immature Granulocytes % (Auto) 4 % (0-0); Immature Granulocytes Auto 0.43 Thou/mm3 (0.00-0.00); Lymphocytes % (Auto) 9 % (10-50); Mean Corpuscular HGB Conc 32.3 g/dl (31.0-37.0); Mean Corpuscular Hemoglobin 29.8 pg (25.0-35.0); Mean Corpuscular Volume 92 fL (80-100); Monocytes # (Auto) 0.8 Thou/mm3 (0.0-0.8); Monocytes % (Auto) 7 % (0-12); Neutrophils # (Auto) 8.8 Thou/mm3 (1.8-7.7); Neutrophils % (Auto) 80 % (37-80); Nucleated Red Blood Cell % 0 /100 WBC (0); Platelet Count 421 Thou/mm3 (140-440); RDW Standard Deviation 45.7 fL (35.1-43.9); Red Blood Count 3.52 Miln/mm3 (4.50-5.90)
[2024-10-26 06:13] LABS: Alanine Aminotransferase 43 U/L (10-49); Albumin, Serum 3.3 gm/dL (3.4-4.8); Albumin/Globulin Ratio 1.4 (1.2-2.2); Alkaline Phosphatase 74 U/L (46-116); Anion Gap 9 (7-16); Aspartate Amino Transferase 26 U/L (0-34); BUN/Creatinine Ratio 37 Ratio (12-20); Bilirubin,Total 0.5 mg/dL (0.3-1.2); Blood Urea Nitrogen 33 mg/dL (9-23); Calcium 8.8 mg/dL (8.3-10.6); Calcium (Corrected) 9.4 mg/dL (8.5-10.1); Carbon Dioxide 26.4 mMol/L (20.0-31.0); Chloride 108 mMol/L (98-107); Creatinine (Component) 0.9 mg/dL (0.6-1.3); Estimated Creatinine Clearance 66.5 mL/min (>60); Globulin 2.4 gm/dL (2.3-3.5); Glucose 163 mg/dL (74-106); Osmolality,Calculated 296 (275-295); Potassium 4.4 mMol/L (3.4-5.1); Sodium 143 mMol/L (136-145); Total Protein 5.7 gm/dL (5.7-8.2); eGFR > 60 See Note
[2024-10-26] MEDS: BUDESONIDE RT 0.5 MG/2 ML NEBU INH ×2 (06:17→20:04)
[2024-10-26] MEDS: ASPIRIN EC 81 MG TABEC PO (09:06)
[2024-10-26] MEDS: predniSONE 20 MG TABLET 40 MG PO (09:06)
[2024-10-26] MEDS: APIXABAN 2.5 MG TABLET 5 MG PO ×2 (09:07→21:19)
[2024-10-26] MEDS: FAMOTIDINE 20 MG TABLET PO ×2 (09:07→21:20)
[2024-10-26] MEDS: FUROSEMIDE INJ 10 MG/ML 4ML VIAL 40 MG IVP (10:40)
--- NOTE | 2024-10-26 11:45 | ESPR_ITS ---
<Statement entered by Roxana Cantor MD - 10/26/24 13:36> Patient seen and examined at bedside. Doing well. Was able to titrate off HFNC, now on NC. Lungs sound clear, will discontinue breathing treatments to prn. Anticipate discharge within 1-2 days likely with home O2. Roxana Cantor MD PGY-3 Documentation for date of: 10/26/24 Subjective Subjective Interval history: Patient was seen at bedside this morning. No overnight events. Patient was on 20 L at FiO2 of 35% this morning, and around 11 AM he was transition to nasal cannula and saturating well. Patient did have some pitting edema therefore gave Lasix 40 x 1 today. Patient is doing a lot better and continues to be weaned off his oxygen. Will continue to monitor for now, but expect possible discharge in the next 24 to 48 hours if his oxygen saturation continues to be good on nasal cannula. Exam Vital Signs Temp Pulse Resp BP Pulse Ox O2 Del Method O2 Flow Rate 96.4 F L 58 L 20 133/75 H 93 L High Flow Nasal Cannula 20 10/26/24 07:54 10/26/24 10:40 10/26/24 10:15 10/26/24 10:40 10/26/24 10:15 10/26/24 07:54 10/26/24 10:15 FiO2 35 10/26/24 10:15 Narrative Exam General: A/O x3, no acute distress, on NC Eyes: PERRL, EOMI. Anicteric, vision grossly intact. Ears: No ear pain, no ear discharge, Hearing grossly intact. Nose: No nasal discharge. Mouth/Throat: Moist mucous membranes, no redness, no lesions. Neck: Neck supple, non-tender, no cervical lymphadenopathy. Lungs: Rhonchi JORGE, No accessory muscle use. Cardio: Normal S1/S2, regular rhythm, no murmurs, no JVD Abdomen: Soft, non-tender, no palpable masses, peristalsis present, no guarding or rebound. Extremities: Symmetrical, no significant deformities, no peripheral edema , non-tender, peripheral pulses presents. Skin: No rashes, no lesions, warm to touch. Neuro: No focal neurological deficits. motor and sensory intact Psych: Cooperative, appropriate mood and effect. Objective Labs 10/26/24 04:21 10/26/24 04:21 Labs: Laboratory Results - last 24 hr 10/26/24 04:21 WBC 11.0 H RBC 3.52 L Hgb 10.5 L Hct 32.5 L MCV 92 MCH 29.8 MCHC 32.3 RDW Std Deviation 45.7 H Plt Count 421 Neut % (Auto) 80 Lymph % (Auto) 9 L [place] % (Auto) 7 Eos % (Auto) 0 Baso % (Auto) 0 Neut # (Auto) 8.8 H Lymph # (Auto) 1.0 [place] # (Auto) 0.8 Eos # (Auto) 0.0 Baso # (Auto) 0.0 Immature Gran # (Auto) 0.43 H Absolute Nucleated RBC 0.00 Immature Gran % 4 H Nucleated RBC % 0 Sodium 143 Potassium 4.4 D Chloride 108 H Carbon Dioxide 26.4 Anion Gap 9 BUN 33 H Creatinine 0.9 Estim Creat Clear Calc 66.5 eGFR > 60 BUN/Creatinine Ratio 37 H Glucose 163 H Calculated Osmolality 296 H Calcium 8.8 Corrected Calcium 9.4 Total Bilirubin 0.5 AST 26 ALT 43 Alkaline Phosphatase 74 Total Protein 5.7 Albumin 3.3 L Globulin 2.4 Albumin/Globulin Ratio 1.4 Quality Measures Quality Measures none Advance care planning discussed with:: patient and spouse Assessment & Plan Assessment Current Active Medications: Generic Name Dose Route Start Last Admin Trade Name Freq PRN Reason Stop Dose Admin Acetaminophen 650 mg 10/11/24 23:24 10/23/24 19:48 Acetaminophen 325 Mg Tablet PO 11/10/24 23:23 650 mg Q6H PRN Administration PAIN SCALE 1-3 (mild Acetaminophen 650 mg 10/11/24 23:24 Acetaminophen 325 Mg Tablet PO 11/10/24 23:23 Q6H PRN Fever >100 Albuterol/Ipratropium 3 ml 10/26/24 10:27 Albuterol/Ipratropium (Duoneb) Rt Yesenia 3 Ml Nebu INH 11/18/24 12:59 Q6HRRT PRN SHORTNESS OF BREATH OR WHEEZE Apixaban 5 mg 10/11/24 23:45 10/26/24 09:07 Apixaban 2.5 Mg Tablet PO 11/10/24 23:44 5 mg BID TERESA Administration Aspirin 81 mg 10/12/24 09:00 10/26/24 09:06 Aspirin Ec 81 Mg Tabec PO 11/11/24 08:59 81 mg QDAY TERESA Administration Atorvastatin Calcium 40 mg 10/12/24 21:00 10/25/24 21:47 Atorvastatin Calcium 20 Mg Tablet PO 11/11/24 20:59 40 mg HS TERESA Administration Budesonide 0.5 mg 10/15/24 19:00 10/26/24 06:17 Budesonide Rt 0.5 Mg/2 Ml Nebu INH 11/14/24 18:59 0.5 mg BIDRT TERESA Administration Dextrose 25 ml 10/11/24 23:36 Dextrose 50%-Water Inj 50 Ml Syringe IV 11/10/24 23:35 Q15MIN PRN BG 50-70 responsive npo pt Dextrose 50 ml 10/11/24 23:36 Dextrose 50%-Water Inj 50 Ml Syringe IV 11/10/24 23:35 Q15MIN PRN BG <50 OR BG <70 & pt unresponsive Diltiazem HCl 60 mg 10/18/24 11:00 10/26/24 05:32 Diltiazem 30 Mg Tablet PO 11/17/24 10:59 60 mg TID TERESA Administration Famotidine 20 mg 10/12/24 09:00 10/26/24 09:07 Famotidine 20 Mg Tablet PO 11/11/24 08:59 20 mg QDAY TERESA Administration Furosemide 40 mg 10/27/24 09:00 Furosemide 40 Mg Tablet PO 11/26/24 08:59 QDAY TERESA Glucagon 1 mg 10/11/24 23:36 Glucagon Inj 1 Mg Vial IM Q15MIN PRN BG <70, and no IV access Insulin Human Lispro 0 unit 10/12/24 07:30 10/26/24 07:42 Insulin Lispro (Admelog) 1 Unit/0.01 Ml Unit SC 11/11/24 07:29 Not Given ACHS [facility] Protocol Levothyroxine Sodium 50 mcg 10/12/24 06:00 10/26/24 05:32 Levothyroxine Sodium 25 Mcg Tablet PO 11/11/24 05:59 50 mcg ACBR TERESA Administration Metoprolol Succinate 100 mg 10/16/24 21:00 10/25/24 21:46 Metoprolol Succinate Xl 25 Mg Tabcr PO 11/15/24 20:59 100 mg HS TERESA Administration Ondansetron HCl 4 mg 10/11/24 23:24 Ondansetron Inj 2 Mg/Ml Inj 2 Ml IV 11/10/24 23:23 Q6H PRN NAUSEA OR VOMITING Protocol Prednisone 40 mg 10/25/24 13:45 10/26/24 09:06 Prednisone 20 Mg Tablet PO 10/30/24 13:44 40 mg QDAY TERESA Administration Sennosides 1 tab 10/15/24 12:04 10/15/24 20:06 Senna Tablet PO 11/14/24 12:03 1 tab QDAY PRN Administration CONSTIPATION Protocol Plan 79-year-old male with past medical history of AAA 10 years ago with status post stenting, CAD status post stents, A-fib, hypertension, hyperlipidemia, hypothyroidism, DM2, and GERD was admitted to the hospital on 10/11/2024 due to acute hypoxic respiratory failure likely secondary to community-acquired pneumonia and sepsis rule out. #AHRF 2/2 E. coli PNA #Sepsis (ruled out) 2/2 E. coli PNA Presenting with scott sputum cough, fever, and SOB x 3 days. Patient had aspiration event before arrival to hospital. Per at bedside, he had been smoking marijuana, followed by episode of emesis with coughing. Met sepsis with 2/3 SIRS criteria: tachypnea and leukocytosis, pneumonia likely source, endorgan damage (HOWARD). CXR showed bibasilar pneumonia. Basilar lung crackles and 1+ bilateral lower extremity edema on exam. BNP 206. PSI index 81 indicates class III risk. CURB-65 of 2 indicates Moderate risk. Sputum culture positive for E. coli. Patient completed course of azithromcyin and ceftriaxone (10/11-10/17) Plan: ? Continue DuoNebs q.6h. HYDROLOGIST ? Chest physio therapy with spirometry/acapella -Continue prednisone 40mg (until 10/30) -Continue to titrate down O2 -PT ordered ? Will continue to monitor #Type B thoracic aortic dissection, stable CT chest on 10/13 showed Hir[place] type B thoracic aortic dissection beginning distal to the left subclavian artery with aneurysmal dilatation ascending thoracic aorta and upper abdominal aorta Unsure at this time of dissection is new or old. Patient is denying any chest pain or back pain. Wood Gluer Dr. Valerio consulted and recommends transfer for evaluation. -Recommendations to keep blood pressure less than 120/80 and heart rate around 70. -continue metoprolol 100 mg daily -Diltiazem 60 TID -Patient and family are willing to follow-up with cardiothoracic surgeon Dr. Tu Valadez from [facility]. (clinic number: [phone]) #Hx A-fib, rate controlled #Hx of AAA s/p stent #Hx of CAD s/p stent #HFrEF, EF 40% Patient follows up with cardiology for annual screening in [place]. Last visit last week. Denies chest pain or palpitations. Troponin normal. Echo 10/11/24: Normal LV size. Global LV systolic function is mildly decreased. LVEF 40%. Hypokinetic mid-anterior septal wall motion. [id number] 5 point outweighs risk of bleed with HAS-BLED of 3. Plan: ? Continued home ASPIRIN 81 mg daily ? Continued home ELIQUIS 5 mg BID ? Continue home DILTIAZEM 60mg TID ?Lasix 40 mg x 1 ?Will continue to monitor #Hx HTN #Hx HLD, #Hx hypothyroidism ?Home meds HCTZ 12.5 daily, LISINOPRIL 40 BID, METOPROLOL 50 mg daily, ROSUVASTATIN 40 mg. Plan: ?Continue atorvastatin 40 mg at bedtime, continue lisinopril 40 mg twice daily continue metoprolol 100 mg daily #DM2 ?A1c 5.8 10/12/2024 Patient takes metformin 500 daily, Tradjenta 5 mg daily at home Plan: -Bedside blood glucose checks ACHS -Insulin lispro sliding scale -Carb consistent low diet #Mild hypernatremia-resolved #Prerenal HOWARD-resolved #GERD ? Continue famotidine Disposition: Pending O2 requirements improve, possible DC in next 24-48hrs. Diet: carb consistent GI prophylaxis: not indicated DVT prophylaxis: Eliquis Code: Full code Case disclosed with Attending Dr. Eli and My senior Dr. Cantor PGY3. Man Cordero PGY1 Attending Provider Attestation/Addendum I have discussed and was present for the essential components of the history, physical examination, diagnosis, and treatment plan with the resident. I agree with the patient's care as documented by the resident and amended herein by me. Ferdinand Eli DO. Patient seen and evaluated this AM. Vital signs stable, patient afebrile overnight, no acute events overnight. Patient on high flow nasal cannula this morning 20/35 with an SpO2 of 91%. Patient states he feels well with no subjective complaints. Will continue to titrate down O2 today continue steroids, antibiotics discontinued yesterday, may also give an additional dose of diuretics today. Likely discharge in 1 to 2 days pending further improvement. Again we have discussed the importance of continued smoking cessation upon discharge and the patient understands. Although this document has been carefully reviewed, there may still be some phonetic and other typographical errors. These errors are purely grammatical due to imperfections in the software program and should not be construed in any way to compromise the substance of the patient's medical care during this visit.
[2024-10-26] MEDS: INSULIN LISPRO (AdmeLOG) 1 UNIT/0.01 ML UNIT SC ×2 (17:03→21:33)
[2024-10-26] MEDS: METOPROLOL SUCCINATE XL 25 MG TABCR 100 MG PO (21:18)
[2024-10-26] MEDS: ATORVASTATIN CALCIUM 20 MG TABLET 40 MG PO (21:20)
[2024-10-27] VITALS (12 sets, daily range): BP systolic 118–136; BP diastolic 61–79; PULSE 47–101; RESP 18–24; TEMP 35.9–36.6; O2SAT 92–98
[2024-10-27] MEDS: DILTIAZEM 30 MG TABLET 60 MG PO ×2 (05:35→15:15)
[2024-10-27] MEDS: LEVOTHYROXINE SODIUM 25 MCG TABLET 50 MCG PO (05:36)
--- NOTE | 2024-10-27 05:38 | PC.NURSE ---
accessed pt's chart to assist main RN. Dr. Pino was made aware about pt's HR and BP, okay to give diltiazem pills to pt per MD.
[2024-10-27] MEDS: BUDESONIDE RT 0.5 MG/2 ML NEBU INH (06:40)
[2024-10-27] MEDS: FAMOTIDINE 20 MG TABLET PO (09:43)
[2024-10-27] MEDS: Furosemide 40 MG TABLET PO (09:43)
[2024-10-27] MEDS: APIXABAN 2.5 MG TABLET 5 MG PO (09:43)
[2024-10-27] MEDS: ASPIRIN EC 81 MG TABEC PO (09:43)
[2024-10-27] MEDS: predniSONE 20 MG TABLET 40 MG PO (09:44)
--- NOTE | 2024-10-27 10:22 | CHAP ---
Patient expressed gratitude for prayer and visit.
--- NOTE | 2024-10-27 12:00 | PC.NURSE ---
pt O2 sat. at 94% on 4L NC resting in bed, pt O2 decreases to 87% on RA resting in bed, pt placed back on 4L NC and O2 sat. back to 94%, pt tolerating well.
--- NOTE | 2024-10-27 12:41 | PC.SS ---
OXYGEN Pt is discharged in a chronic stable state and has been treated optimally and has other respiratory needs. Oxygen has been ordered due SOB
--- NOTE | 2024-10-27 12:49 | PD.RESDS ---
Planned Discharge Date 10/27/24 DS: Providers Provider Date of admission: 10/11/24 23:24 Primary care physician: Cristobal Chowdhury MD Admitting Provider: Alexis Vasquez MD Attending Provider on Admission: Amy Hoffman DO Consults: 10/13/24 14:34 Consult to Cardiology Urgent Comment: descending aortic dissection Consulting Provider: Pavel Valerio 10/14/24 10:48 PT [Referral Physical Therapy] Routine Comment: Physician Instructions: 10/14/24 23:25 Referral Carolin Routine Comment: Attending Provider on DC: Martha Canchola MD Discharging Provider: Martha Canchola MD DS: Diagnosis Problem List Completed Was Problem List Reviewed/Reconciled?: Yes Hospital Course Hospital Course Hospital course: Reason for hospitalization: AHRF 2/2 ecoli pneumonia Rasheed Mayo is 79 yr male with PMH of AAA with repair, CAD with stents, A-fib, HTN, HLD, hypothyroidism, T2DM and GERD who presented to [facility] ED on 10/11/24 due to cough, SOB, T 100.2 after having aspiration episode the day before after smoking weed. Patient was admitted for acute hypoxic respiratory failure secondary to E. coli aspiration pneumonia and sepsis secondary to the pneumonia. Patient was started on high flow nasal cannula, prednisone, ceftriaxone, and azithromycin for 5 days. During hospitalization, oxygen requirements remained high with difficulty in titrating the HFNC. Upon further workup, CT chest showed [place] type B thoracic aortic dissection beginning distal to the left subclavian artery with aneurysmal dilatation. Cardiology Dr. Valerio was consulted who recommended to transfer patient for further eval. Multiple facilities rejected the transfer. Dr. Tu Valadez from [facility] was happy to see patient in his clinic after discharge. The patient remained asymptomatic and stable with tight BP control of 120/80 with metoprolol xL 100 daily and diltiazem 60 TID. Daily assessments showed no improvements in oxygen until prednisone was restarted for 10 day course. Patient continued working with RT and PT. Process was very slow but eventually was weaned to 4LNC and sent with home oxygen. Patient was counseled on smoking cessation. He is now in stable condition and ready for discharge. Recommendations were given as below. Discharge Recommendations: Resume medications listed above. Hold hydrochlorothiazide, lisinopril, Xarelto until you follow-up with special skills officer. Increase metoprolol dosage to 100mg daily for blood pressure control due to your aortic dissection. Frequently check your oxygen saturation with a pulse oximeter. Oxygen goal should be between 88-92%. Use home oxygen as needed. Use inhaler as needed. Complete your steroid dose with Medrol pack for tapering. Follow-up with PCP within 1 week. Make appointment with cardiothoracic surgeon Dr. Tu Valadez from [facility]. (clinic number: [phone]) in regards to you aortic dissection. Hospital Diagnoses: #AHRF 2/2 E. coli PNA #Sepsis (resolved) 2/2 E. coli PNA #Type B thoracic aortic dissection, stable #Hx A-fib, rate controlled #Hx of AAA s/p stent #Hx of CAD s/p stent #HFmrEF, EF 40% #Hx HTN #Hx HLD, #Hx hypothyroidism #History of type 2 diabetes, A1c 5.8 #Mild hypernatremia-resolved #Prerenal HOWARD-resolved #GERD The patient's management plan was discussed with my attending physician Dr. Eli. Martha Canchola MD, PGY-1 Time Spent with Patient Time attestation: Total time spent providing and/or coordinating discharge services: Time spent: Greater than 30 minutes Exam Vital Signs Temp Pulse Resp BP Pulse Ox O2 Del Method O2 Flow Rate 97.1 F 54 L 18 136/79 H 93 L Nasal Cannula 4 10/27/24 12:00 10/27/24 12:00 10/27/24 12:00 10/27/24 12:00 10/27/24 12:10/27/24 12:10/27/24 12:00 FiO2 4 10/27/24 06:42 Narrative Exam General: Sitting comfortably in bed. No acute distress, cooperative Eyes: Pupils are equal and reactive to light bilaterally HENT: Atraumatic, normocephalic. No JVD noted. Mucosa moist. Cardiovascular: Normal S1 and S2. Regular rate and rhythm. Respiratory: b/L rhonchi, on 4LNC Abdomen: Soft, nontender, not distended, normal bowel sounds. Skin: Warm to touch, dry, no rashes noted, small bruises noted throughout extremities Musculoskeletal: No gross injuries. Able to move all 4 extremities. Neuro: Grossly intact Psych: Normal affect and mood Discharge Plan Plan Patient Disposition: HOME (Self Care) Patient condition on transfer: Stable Prescriptions/Referrals Prescriptions/Med Rec: New metoprolol succinate 25 mg Tablet Extended Release 24 Hr 100 mg PO HS Qty: 120 3RF methylprednisolone [Medrol (Cristian)] 4 mg tablets,dose pack 4 mg PO QDAY Qty: 21 0RF Trelegy Ellipta 200-62.5-25 mcg blister with device 1 inh inhalation QDAY PRN (Reason: wheezing) Qty: 28 1RF famotidine 20 mg Tablet 20 mg PO QDAY 30 Days Qty: 30 2RF prednisone 20 mg tablet 40 mg PO QDAY 2 Days Qty: 4 0RF Continued diltiazem HCl [Cardizem] 30 mg Tablet 30 mg PO TID levothyroxine 50 mcg Tablet 50 mcg PO QDAY Qty: 0 ferrous sulfate [Iron (ferrous sulfate)] 325 mg (65 mg iron) Tablet 325 mg PO QDAY Tradjenta 5 mg tablet 5 mg PO QDAY 30 Days Qty: 30 1RF metformin 500 mg tablet 500 mg PO QDAY Eliquis 5 mg tablet 5 mg PO BID alendronate 70 mg Tablet 70 mg PO QWEEK Rx Instructions: Wednesdays. aspirin 81 mg Tablet,Delayed Release (Dr/Ec) 81 mg PO QDAY rosuvastatin 40 mg Tablet 40 mg PO HS calcium phosphate-vitamin D3 [Citracal-D3 Gummies] 250 mg-12.5 mcg (500 unit) Tablet,Chewable 4 tab PO TIDWM Held lisinopril 40 MG tablet 40 mg PO BID Qty: 0 Hold Instructions: Resume on 11/07/24. Hold until you see Soft Work Wrapper Examiner. Xarelto 20 mg tablet 20 mg PO Q24H Hold Instructions: Resume on 11/07/24. Hold until you follow up with special skills officer. hydrochlorothiazide 12.5 mg tablet 12.5 mg PO QDAY Hold Instructions: Resume on 11/07/24. Hold until you follow up with special skills officer. Patient Comments: TAKE 1 TABLET BY MOUTH EVERY DAY Discontinued famotidine [Pepcid] 40 mg Tablet 40 mg PO DAILY metoprolol succinate 50 mg tablet extended release 24 hr 75 mg PO HS No Action albuterol sulfate 90 mcg/actuation HFA aerosol inhaler 2 puff INHALATION .q4-6hrs PRN (Reason: cough and wheezing) Patient Comments: 2 PUFFS INHALATION EVERY 4-6 HRS NEEDED FOR COUGH/WHEEZING 30 DAYS Referrals: Cristobal Chowdhury MD [Primary Care Provider] - Patient/Caregiver Discharge Instructions Other Discharge Activity Instructions:: Resume medications listed above. Hold hydrochlorothiazide, lisinopril, Xarelto until you follow-up with special skills officer. Increase metoprolol dosage to 100mg daily for blood pressure control due to your aortic dissection. Frequently check your oxygen saturation with a pulse oximeter. Oxygen goal should be between 88-92%. Use home oxygen as needed. Use inhaler as needed. Complete your steroid dose with Medrol pack for tapering. Follow-up with PCP within 1 week. Make appointment with cardiothoracic surgeon Dr. Tu Valadez from [facility]. (clinic number: [phone]) in regards to you aortic dissection. Education Materials: Treating Pneumonia, Emphysema Dc, If Oxygen Is Prescribed Print Language: Turkmen Stand Alone Forms: [employer] Award Info., Patient Portal Info Letter Discharge Order Discharge Orders: Discharge (Routine); Ordered 10/27/24 Ordered By: Martha Canchola Quality Discharge Quality Measures VTE prophylaxis Attestestation MD Attestation I have discussed and was present for the essential components of the discharge history, physical examination, diagnosis, and discharge treatment plan with the resident. I agree with the patient's discharge care as documented by the resident and amended herein by me. Ferdinand Eli DO. The patient understood all discharge instructions, all questions were answered satisfactorily. The patient was instructed to return to the Emergency Department is symptoms worsened or persisted. Patient was stable today, in no respiratory distress, presently on 4 L NC SpO2, 99% at time of discharge. Patient will be discharged with home O2 and a continued short course of steroids until his oxygen can be weaned off. Information for [facility] to address aortic dissection listed above for the patient to make an appointment. Patient will also need to follow closely with his primary care physician and will likely need an outpatient odd ticket clerk for continued evaluation for COPD. Patient was stable, tolerating p.o. intake, and afebrile at time of discharge home. Although this document has been carefully reviewed, there may still be some phonetic and other typographical errors. These errors are purely grammatical due to imperfections in the software program and should not be construed in any way to compromise the substance of the patient's medical care during this visit.
--- NOTE | 2024-10-27 13:25 | PC.SS ---
SS met with pt and at to discuss DC planning. Pt needs home O2, pt preference for DME company is [employer] as his is aligned with them as well. [employer] platform down, PRISCILA utilized [employer] to submit paper work. SS contacted [employer] and spoke to ANDREEA and informed her of [employer] being down and to keep an eye out for hard fax.
--- NOTE | 2024-10-27 16:03 | PC.SS ---
O2 concentrator and O2 at bedside delivered by [facility]
--- NOTE | 2024-10-27 19:28 | PC.CC ---
HH referral sent on [employer]. Awaiting responses. Pending Start of care date.
--- NOTE | 2024-10-29 19:16 | PC.CC ---
[facility] accepted the pt. Booked [facility]. Pending start of care date.
--- NOTE | 2024-11-01 08:21 | PC.CC ---
Start of care date with [facility] is 10/30/24.
== END 2024-10-27 16:30 | disposition home health service (06) | DRG 871 ==
LOC: SERX 19:41 → SERHOLD 10-12 00:03 → S3NX 10-12 00:59
PROVIDERS: Student in an Organized Health Care Education/Training Program; Admitting Provider Student in an Organized Health Care Education/Training Program; Emergency Provider Emergency Medicine; PCP Specialist; Visit Provider Internal Medicine
DX: A41.51 Sepsis due to Escherichia coli [E. coli] (principal); I71.012 Dissection of descending thoracic aorta; J15.5 Pneumonia due to Escherichia coli; J96.01 Acute respiratory failure with hypoxia; J69.0 Pneumonitis due to inhalation of food and vomit; N17.9 Acute kidney failure, unspecified; E87.0 Hyperosmolality and hypernatremia; I50.22 Chronic systolic (congestive) heart failure; R65.20 Severe sepsis without septic shock; I25.10 Atherosclerotic heart disease of native coronary artery without angina pectoris; E78.5 Hyperlipidemia, unspecified; I70.209 Unspecified atherosclerosis of native arteries of extremities, unspecified extremity; K21.9 Gastro-esophageal reflux disease without esophagitis; I11.0 Hypertensive heart disease with heart failure; E11.51 Type 2 diabetes mellitus with diabetic peripheral angiopathy without gangrene; F17.200 Nicotine dependence, unspecified, uncomplicated; I48.0 Paroxysmal atrial fibrillation; E11.9 Type 2 diabetes mellitus without complications; E03.9 Hypothyroidism, unspecified; Z95.5 Presence of coronary angioplasty implant and graft; Z79.82 Long term (current) use of aspirin; Z79.01 Long term (current) use of anticoagulants; Z86.79 Personal history of other diseases of the circulatory system; Z90.79 Acquired absence of other genital organ(s); Z79.899 Other long term (current) drug therapy; Z79.84 Long term (current) use of oral hypoglycemic drugs; Z79.83 Long term (current) use of bisphosphonates
CPT/HCPCS: 36415; 71045; 71275; 80048; 80053; 80061; 83036; 83735; 83880; 84100; 84439; 84443; 84484; 85025; 86331; 86635; 87040; 87077; 87081; 87186; 87205; 87502; 87634; 87635; 87811; 93005; 93225; 93306; 94640; 94664; 94667; 97163; 99291; A4649; A9270; J0456; J0696; J1815; J1940; J2543; J7050; J7512; Q9967

== ENCOUNTER → 2024-11-11 | Outpatient (CLI) | payer MEDICARE, BC, SELFPAY ==
[2024-11-11 16:35] LABS: Basophils % (Auto) 0 % (0-2.5); Eosinophils # (Auto) 0.4 Thou/mm3 (0.0-0.5); Eosinophils % (Auto) 3 % (0-10); Hematocrit 36.4 % (41.0-53.0); Hemoglobin 11.7 g/dL (13.5-16.0); Immature Granulocytes % (Auto) 1 % (0-0); Immature Granulocytes Auto 0.16 Thou/mm3 (0.00-0.00); Lymphocytes # (Auto) 1.6 Thou/mm3 (1.0-4.8); Lymphocytes % (Auto) 13 % (10-50); Mean Corpuscular HGB Conc 32.1 g/dl (31.0-37.0); Mean Corpuscular Hemoglobin 30.2 pg (25.0-35.0); Mean Corpuscular Volume 94 fL (80-100); Monocytes # (Auto) 1.2 Thou/mm3 (0.0-0.8); Monocytes % (Auto) 10 % (0-12); Neutrophils # (Auto) 9.2 Thou/mm3 (1.8-7.7); Neutrophils % (Auto) 73 % (37-80); Nucleated Red Blood Cell % 0 /100 WBC (0); Platelet Count 123 Thou/mm3 (140-440); RDW Standard Deviation 53.7 fL (35.1-43.9); Red Blood Count 3.88 Miln/mm3 (4.50-5.90); White Blood Count 12.6 Thou/mm3 (3.8-10.6)
[2024-11-11 16:38] LABS: Iron 32 mcg/dL (65-175)
[2024-11-11 16:39] LABS: Alanine Aminotransferase 20 U/L (10-49); Albumin, Serum 3.6 gm/dL (3.4-4.8); Albumin/Globulin Ratio 1.9 (1.2-2.2); Alkaline Phosphatase 57 U/L (46-116); Anion Gap 11 (7-16); Aspartate Amino Transferase 25 U/L (0-34); BUN/Creatinine Ratio 17 Ratio (12-20); Bilirubin,Total 0.4 mg/dL (0.3-1.2); Blood Urea Nitrogen 15 mg/dL (9-23); Calcium 9.1 mg/dL (8.3-10.6); Calcium (Corrected) 9.4 mg/dL (8.5-10.1); Carbon Dioxide 22.7 mMol/L (20.0-31.0); Chloride 108 mMol/L (98-107); Creatinine (Component) 0.9 mg/dL (0.6-1.3); Globulin 1.9 gm/dL (2.3-3.5); Glucose 113 mg/dL (74-106); Osmolality,Calculated 284 (275-295); Potassium 4.6 mMol/L (3.4-5.1); Sodium 142 mMol/L (136-145); Total Protein 5.5 gm/dL (5.7-8.2); eGFR > 60 See Note
== END | disposition home or self-care (01) ==
LOC: COPL 15:01
PROVIDERS: PCP Specialist; Referring Provider Specialist; Visit Provider Specialist
DX: J44.1 Chronic obstructive pulmonary disease with (acute) exacerbation (principal); R09.02 Hypoxemia; D50.8 Other iron deficiency anemias
CPT/HCPCS: 36415; 80053; 83540; 85025

== ENCOUNTER → 2024-12-31 | Outpatient (CLI) | payer MEDICARE, BC, SELFPAY ==
[2024-12-31 13:43] LABS: Glucose Estimated Average 111 mg/dL (80-131); Hemoglobin A1C 5.5 % Hgb (4.8-6.0)
[2024-12-31 13:44] LABS: Creatinine MALB Rnd Ur 66 mg/dL (30-125); Microalbumin Creat Ratio 29 mg/gCrea (<30); Microalbumin, Random Urine 19 mg/L (0-300)
[2024-12-31 13:45] LABS: Alanine Aminotransferase 10 U/L (10-49); Albumin, Serum 4.4 gm/dL (3.4-4.8); Anion Gap 8 (7-16); Aspartate Amino Transferase 19 U/L (0-34); BUN/Creatinine Ratio 18 Ratio (12-20); Bilirubin,Total 0.7 mg/dL (0.3-1.2); Blood Urea Nitrogen 20 mg/dL (9-23); Calcium 9.8 mg/dL (8.3-10.6); Carbon Dioxide 26.5 mMol/L (20.0-31.0); Chloride 110 mMol/L (98-107); Creatinine (Component) 1.1 mg/dL (0.6-1.3); Glucose 103 mg/dL (74-106); Osmolality,Calculated 289 (275-295); Potassium 5.1 mMol/L (3.4-5.1); Sodium 144 mMol/L (136-145); Total Protein 6.9 gm/dL (5.7-8.2); eGFR > 60 See Note
[2024-12-31 13:46] LABS: Albumin/Globulin Ratio 1.8 (1.2-2.2); Alkaline Phosphatase 52 U/L (46-116); Calcium (Corrected) 9.8 mg/dL (8.5-10.1); Cardiac Risk Estimate 2.1 RATIO (4.0-6.7); Cholesterol 126 mg/dL (132-200); Globulin 2.5 gm/dL (2.3-3.5); HDL Cholesterol 60 mg/dL (40-60); LDL Cholesterol,Calculated 27 mg/dL (0-130); Triglycerides 195 mg/dL (30-150)
== END | disposition home or self-care (01) ==
PROVIDERS: PCP Specialist; Referring Provider Specialist; Visit Provider Specialist
DX: E11.65 Type 2 diabetes mellitus with hyperglycemia (principal); E78.2 Mixed hyperlipidemia; E03.9 Hypothyroidism, unspecified
CPT/HCPCS: 36415; 80053; 80061; 82043; 82570; 83036

== ENCOUNTER → 2025-04-02 | Outpatient (CLI) | payer MEDICARE, BC, SELFPAY ==
--- NOTE | 2025-04-02 10:30 | XR_ITS ---
Examination: Video esophagram Modified barium swallow 40 spot fluoroscopic images soft tissue lateral neck Fluoroscopy Date and time: April 02, 2025 11:50 PM INDICATIONS: Choking with fluid, history aspiration TECHNIQUE AND FINDINGS: Patient swallowed barium Years including thin, pudding, and cracker administration Premature transfer and pooling in the vallecular region and piriform sinuses noted No pharyngeal aspiration IMPRESSION: Negative for pharyngeal aspiration Fluoroscopy 0.2 minute radiation dose 14.96 milligray 3 spot fluoroscopic lateral soft tissue films of the neck
== END | disposition home or self-care (01) ==
PROVIDERS: PCP Specialist; Referring Provider Internal Medicine; Visit Provider Internal Medicine
DX: J96.11 Chronic respiratory failure with hypoxia (principal); J44.9 Chronic obstructive pulmonary disease, unspecified; Y84.4 Aspiration of fluid as the cause of abnormal reaction of the patient, or of later complication, without mention of misadventure at the time of the procedure
CPT/HCPCS: 74230; A9270

== ENCOUNTER → 2025-04-09 | Outpatient (CLI) | payer MEDICARE, BC, SELFPAY ==
[2025-04-09 14:42] LABS: Glucose Estimated Average 134 mg/dL (80-131); Hemoglobin A1C 6.3 % Hgb (4.8-6.0)
[2025-04-09 14:45] LABS: Creatinine MALB Rnd Ur 75 mg/dL (30-125); Microalbumin Creat Ratio 28 mg/gCrea (<30); Microalbumin, Random Urine 21 mg/L (0-300)
[2025-04-09 14:46] LABS: Alanine Aminotransferase 14 U/L (10-49); Albumin, Serum 4.3 gm/dL (3.4-4.8); Albumin/Globulin Ratio 1.8 (1.2-2.2); Alkaline Phosphatase 52 U/L (46-116); Anion Gap 9 (7-16); Aspartate Amino Transferase 24 U/L (0-34); BUN/Creatinine Ratio 11 Ratio (12-20); Bilirubin,Total 0.7 mg/dL (0.3-1.2); Blood Urea Nitrogen 12 mg/dL (9-23); Calcium 9.5 mg/dL (8.3-10.6); Calcium (Corrected) 9.5 mg/dL (8.5-10.1); Carbon Dioxide 20.9 mMol/L (20.0-31.0); Cardiac Risk Estimate 2.3 RATIO (4.0-6.7); Chloride 111 mMol/L (98-107); Cholesterol 128 mg/dL (132-200); Creatinine (Component) 1.1 mg/dL (0.6-1.3); Free T4 (Free Thyroxine) 1.37 ng/dL (0.89-1.76); Globulin 2.4 gm/dL (2.3-3.5); Glucose 124 mg/dL (74-106); HDL Cholesterol 56 mg/dL (40-60); LDL Cholesterol,Calculated 18 mg/dL (0-130); Osmolality,Calculated 281 (275-295); Potassium 4.2 mMol/L (3.4-5.1); Sodium 141 mMol/L (136-145); Thyroid Stimulating Hormone 2.64 uIU/mL (0.55-4.78); Total Protein 6.7 gm/dL (5.7-8.2); Triglycerides 270 mg/dL (30-150); eGFR > 60 See Note
== END | disposition home or self-care (01) ==
LOC: COPL 13:22
PROVIDERS: PCP Specialist; Referring Provider Specialist; Visit Provider Specialist
DX: E11.65 Type 2 diabetes mellitus with hyperglycemia (principal); E78.2 Mixed hyperlipidemia; E03.9 Hypothyroidism, unspecified
CPT/HCPCS: 36415; 80053; 80061; 82043; 82570; 83036; 84439; 84443

== ENCOUNTER → 2025-04-17 | Outpatient (CLI) | payer MEDICARE, BC, SELFPAY ==
--- NOTE | 2025-04-17 11:30 | XR_ITS ---
Examination: CT chest, without intravenous contrast. Sagittal and coronal 2-D reconstructions. Exam date and time: April 27, 2025 1221 hours INDICATIONS: Pneumonia October 2024, Thaddeus type B thoracic aortic dissection on CT chest October 14, 2024 CTDI:vol (mGy) 15.1 DLP: (mGycm) 521 Technique: Multiple 3.0 mm axial sections of the chest to been obtained. Bone and lung density settings are obtained. Sagittal and coronal 2-D reconstructions have been obtained. Low dose protocols were performed. One or more of the following dose reduction techniques were used; automated exposure control, adjustment of the mA and/or KV according to patient size, use of iterative reconstruction technique. Findings: Descending thoracic aortic aneurysmal dilatation 5.6 cm compared to 5.7 cm: October 14, 2024 Pulmonary artery segments are not enlarged Heavy calcification left main left anterior descending left circumflex coronary arteries Mild enlargement cardiac contour Large retrocardiac gastric hernia COPD with areas of airspace destruction Mild to moderate pulmonary fibrosis especially at the lung bases No visualized liver or splenic lesion Contracted gallbladder Hypodense mass head of the pancreas 14 mm Upper pole right renal cyst 38 mm Upper abdominal aorta aneurysm dilatation 3.9 cm IMPRESSION: Descending thoracic aorta aneurysm dilatation 5.6 cm Heavy coronary artery calcification. COPD. Mild to moderate pulmonary fibrosis Recommend MRI abdomen follow-up pre and postcontrast to assess 14 mm mass head of the pancreas
== END | disposition home or self-care (01) ==
LOC: CCTX 11:13
PROVIDERS: PCP Specialist; Referring Provider Internal Medicine; Visit Provider Internal Medicine
DX: I71.23 Aneurysm of the descending thoracic aorta, without rupture (principal); I25.10 Atherosclerotic heart disease of native coronary artery without angina pectoris; J44.9 Chronic obstructive pulmonary disease, unspecified; J84.10 Pulmonary fibrosis, unspecified
CPT/HCPCS: 71250

== ENCOUNTER → 2025-04-27 | Outpatient (CLI) | payer MEDICARE, BC, SELFPAY ==
[2025-04-27 14:04] LABS: Coccid Serology, CF (UCD)* See Sep Rpt
[2025-04-27 15:27] LABS: Basophils # (Auto) 0.1 Thou/mm3 (0.0-0.2); Basophils % (Auto) 1 % (0-2.5); Eosinophils # (Auto) 0.3 Thou/mm3 (0.0-0.5); Eosinophils % (Auto) 3 % (0-10); Hematocrit 44.2 % (41.0-53.0); Hemoglobin 14.0 g/dL (13.5-16.0); Immature Granulocytes Auto 0.09 Thou/mm3 (0.00-0.00); Lymphocytes # (Auto) 1.5 Thou/mm3 (1.0-4.8); Lymphocytes % (Auto) 15 % (10-50); Mean Corpuscular HGB Conc 31.7 g/dl (31.0-37.0); Mean Corpuscular Hemoglobin 30.2 pg (25.0-35.0); Mean Corpuscular Volume 95 fL (80-100); Monocytes # (Auto) 1.3 Thou/mm3 (0.0-0.8); Monocytes % (Auto) 14 % (0-12); Neutrophils # (Auto) 6.6 Thou/mm3 (1.8-7.7); Neutrophils % (Auto) 67 % (37-80); Nucleated Red Blood Cell # 0.00 Thou/mm3 (0.00-0.00); Nucleated Red Blood Cell % 0 /100 WBC (0); Platelet Count 237 Thou/mm3 (140-440); RDW Standard Deviation 51.1 fL (35.1-43.9); Red Blood Count 4.64 Miln/mm3 (4.50-5.90); White Blood Count 9.8 Thou/mm3 (3.8-10.6)
[2025-04-27 15:43] LABS: D-Dimer 3390 ng/mL (<600)
[2025-05-04 07:00] LABS: IgE, Serum* 52 kU/L (114 OR LESS)
== END | disposition home or self-care (01) ==
LOC: COPL 13:45
PROVIDERS: PCP Specialist; Referring Provider Internal Medicine; Visit Provider Internal Medicine
DX: J18.9 Pneumonia, unspecified organism (principal); J44.0 Chronic obstructive pulmonary disease with (acute) lower respiratory infection; J96.11 Chronic respiratory failure with hypoxia
CPT/HCPCS: 36415; 82785; 85025; 85379; 86171

== ENCOUNTER → 2025-04-28 | Outpatient (CLI) | payer MEDICARE, BC, SELFPAY ==
[2025-04-28 11:56] LABS: Quantiferon-TB* See Sep Rpt
== END | disposition home or self-care (01) ==
LOC: COPL 11:44
PROVIDERS: PCP Specialist; Referring Provider Internal Medicine; Visit Provider Internal Medicine
DX: J18.9 Pneumonia, unspecified organism (principal); J44.9 Chronic obstructive pulmonary disease, unspecified
CPT/HCPCS: 86480

== ENCOUNTER → 2025-05-02 | Outpatient (CLI) | payer MEDICARE, BC, SELFPAY ==
--- NOTE | 2025-05-02 16:00 | XR_ITS ---
Examination: MRI abdomen with intravenous contrast. MRI abdomen without intravenous contrast. Date and time of exam: May 02, 2025, 1435 hours INDICATIONS: 14 mm mass head of the pancreas, hypodense CT abdomen April 17, 2025 Technique: Multiple axial, sagittal and coronal sections of the abdomen obtained. Transverse images, TR 6020, TE 107. T1 weighted transverse images, TR 582, TE 9.5. T2-weighted sagittal images, TR 4000, TE 105. T2-weighted sagittal images, TR 4000, TE 5. Coronal images, TR 4210, TE 107. Axial and coronal images are obtained post 20 cc intravenous injection, gadolinium. Findings: No focal liver or splenic lesions There are bilateral benign renal cysts No ascites Aorta normal size There is massive magnetic susceptibility artifact obliterating most of the pancreatic detail However, coronal image 15 demonstrates 14 mm mass head of the pancreas with increased signal most consistent with cyst IMPRESSION: 14 mm probable cyst head of the pancreas Recommend correlation with pancreatic ultrasound
== END | disposition home or self-care (01) ==
LOC: SMRI 15:35
PROVIDERS: PCP Specialist; Referring Provider Specialist; Visit Provider Specialist
DX: K86.89 Other specified diseases of pancreas (principal)
CPT/HCPCS: 74183; A9577

== ENCOUNTER → 2025-05-27 | Outpatient (CLI) | payer MEDICARE, BC, SELFPAY ==
--- NOTE | 2025-05-27 12:14 | XR_ITS ---
Examination: PA lateral chest 2 views TECHNIQUE: Upright PA lateral chest 2 views Date and time: May 27, 2025 1221 hours COMPARISON: October 21, 2024 INDICATIONS: Shortness of breath and weakness beginning 6 months ago FINDINGS: Mild enlargement cardiac contour Large retrocardiac gastric hernia. Prominent vascular congestion. Accentuation interstitial markings, please see the CT chest report April 17, 2025 IMPRESSION: Large retrocardiac gastric hernia Pulmonary fibrosis pattern
--- NOTE | 2025-05-27 13:00 | XR_ITS ---
Examination: Nuclear medicine pulmonary perfusion and ventilatory scan Date and time: May 27, 2025 0825 hours INDICATIONS: Hypoxia, shortness of breath, months, elevated d-dimer on laboratory examination TECHNIQUE AND FINDINGS: Perfusion study 4.3 mCi technetium 99m technetium macroaggregated albumin Ventilatory scan 44 mCi 90 9M technetium DTPA aerosol Anterior posterior bilateral oblique right and left lateral images obtained Homogeneous perfusion Mildly heterogeneous ventilation IMPRESSION: Negative for pulmonary artery emboli
== END | disposition home or self-care (01) ==
LOC: SNUC 12:06
PROVIDERS: PCP Specialist; Referring Provider Internal Medicine; Visit Provider Internal Medicine
DX: K45.8 Other specified abdominal hernia without obstruction or gangrene (principal); R91.8 Other nonspecific abnormal finding of lung field
CPT/HCPCS: 71046; 78582; A9539; A9540

== ENCOUNTER → 2025-06-01 | Outpatient (CLI) | payer MEDICARE, BC, SELFPAY ==
[2025-06-01 16:25] LABS: Creatinine MALB Rnd Ur 89 mg/dL (30-125); Microalbumin, Random Urine < 3 mg/L (0-300)
[2025-06-01 16:25] LABS: Glucose Estimated Average 137 mg/dL (80-131); Hemoglobin A1C 6.4 % Hgb (4.8-6.0)
[2025-06-01 16:32] LABS: Alanine Aminotransferase 14 U/L (10-49); Albumin, Serum 4.2 gm/dL (3.4-4.8); Albumin/Globulin Ratio 1.8 (1.2-2.2); Alkaline Phosphatase 52 U/L (46-116); Anion Gap 11 (7-16); Aspartate Amino Transferase 19 U/L (0-34); BUN/Creatinine Ratio 13 Ratio (12-20); Bilirubin,Total 0.4 mg/dL (0.3-1.2); Blood Urea Nitrogen 14 mg/dL (9-23); Calcium 9.9 mg/dL (8.3-10.6); Calcium (Corrected) 9.9 mg/dL (8.5-10.1); Carbon Dioxide 23.4 mMol/L (20.0-31.0); Cardiac Risk Estimate 2.2 RATIO (4.0-6.7); Chloride 110 mMol/L (98-107); Cholesterol 125 mg/dL (132-200); Creatinine (Component) 1.1 mg/dL (0.6-1.3); Free T4 (Free Thyroxine) 1.32 ng/dL (0.89-1.76); Globulin 2.3 gm/dL (2.3-3.5); Glucose 130 mg/dL (74-106); HDL Cholesterol 57 mg/dL (40-60); LDL Cholesterol,Calculated 27 mg/dL (0-130); Osmolality,Calculated 289 (275-295); Potassium 4.1 mMol/L (3.4-5.1); Sodium 144 mMol/L (136-145); Thyroid Stimulating Hormone 3.24 uIU/mL (0.55-4.78); Total Protein 6.5 gm/dL (5.7-8.2); Triglycerides 207 mg/dL (30-150); eGFR > 60 See Note
== END | disposition home or self-care (01) ==
LOC: COPL 14:13
PROVIDERS: PCP Specialist; Referring Provider Specialist; Visit Provider Specialist
DX: E11.65 Type 2 diabetes mellitus with hyperglycemia (principal); E78.2 Mixed hyperlipidemia; E03.9 Hypothyroidism, unspecified
CPT/HCPCS: 36415; 80053; 80061; 82043; 82570; 83036; 84439; 84443

== ENCOUNTER → 2025-06-15 | Outpatient (CLI) | payer MEDICARE, BC, SELFPAY ==
[2025-06-15 16:46] LABS: Blood Urea Nitrogen 12 mg/dL (9-23); Creatinine (Component) 1.0 mg/dL (0.6-1.3); eGFR > 60 See Note
== END | disposition home or self-care (01) ==
PROVIDERS: PCP Specialist; Referring Provider Surgery Vascular Surgery; Visit Provider Surgery Vascular Surgery
DX: I71.40 Abdominal aortic aneurysm, without rupture, unspecified (principal)
CPT/HCPCS: 36415; 82565; 84520

== ENCOUNTER → 2025-07-02 | Outpatient (CLI) | payer MEDICARE, BC, SELFPAY ==
--- NOTE | 2025-07-02 14:30 | XR_ITS ---
EXAMINATION: Ultrasound pancreas TECHNIQUE: Grayscale sonographic images pancreas Date and time: July 02, 2025, 1427 hours INDICATIONS: Hypodense mass 14 mm at the pancreas on CT examination April 17, 2025. FINDINGS: Pancreatic head 2.3 cm Cystic component in the pancreatic head 1.6 x 1.4 x 1.3 cm IMPRESSION: Cystic mass in the head of the pancreas 16 x 14 x 13 mm, recommend 6-month follow-up
== END | disposition home or self-care (01) ==
LOC: CDIM 14:11
PROVIDERS: PCP Specialist; Referring Provider Specialist; Visit Provider Specialist
DX: K86.2 Cyst of pancreas (principal)
CPT/HCPCS: 76705